=== PATIENT | male | born 1955 | race Caucasian/White ===

== ENCOUNTER 2017-11-20 00:58 | Outpatient (RCR) | payer BC, SELFPAY | END 2017-12-19 | LOC: INF 00:58 | PROVIDERS: PCP Family Medicine; Visit Provider Orthopaedic Surgery | DX: E83.119 Hemochromatosis, unspecified (principal) | CPT/HCPCS: 99195 ==

== ENCOUNTER 2017-11-20 08:10 | Outpatient (CLI) | payer BC, SELFPAY ==
[2017-11-20 08:52] LABS: Ferritin 131 ng/mL (8-388)
== END 2017-11-20 08:11 ==
PROVIDERS: PCP Family Medicine; Visit Provider Family Medicine
DX: E83.119 Hemochromatosis, unspecified (principal)
CPT/HCPCS: 36415; 82728

== ENCOUNTER 2017-12-25 02:32 | Outpatient (RCR) | payer BC, SELFPAY ==
[2017-12-25 10:29] LABS: Ferritin 134 ng/mL (8-388)
== END 2018-01-18 23:59 | disposition home or self-care (01) ==
LOC: INF 02:32
PROVIDERS: PCP Family Medicine; Visit Provider Family Medicine
DX: E83.119 Hemochromatosis, unspecified (principal)
CPT/HCPCS: 36415; 99195; 82728

== ENCOUNTER 2018-01-22 01:37 | Outpatient (RCR) | payer BC, SELFPAY | END 2018-02-18 23:59 | disposition home or self-care (01) | LOC: INF 01:37 | PROVIDERS: PCP Family Medicine; Visit Provider Family Medicine | DX: R69 Illness, unspecified (principal) ==

== ENCOUNTER 2018-01-22 07:52 | Outpatient (CLI) | payer BC, SELFPAY ==
[2018-01-22 09:13] LABS: Ferritin 87 ng/mL (8-388)
== END 2018-01-22 08:12 ==
PROVIDERS: PCP Family Medicine; Visit Provider Family Medicine
DX: E83.119 Hemochromatosis, unspecified (principal)
CPT/HCPCS: 36415; 82728

== ENCOUNTER 2018-02-19 01:25 | Outpatient (RCR) | payer MEDICARE, SELFPAY ==
[2018-02-19] VITALS (15 sets, daily range): BP systolic 65–158; BP diastolic 36–92; PULSE 73–104; RESP 68–84; TEMP 36.6; O2SAT 95–98
[2018-02-19] MEDS: Normal Saline 1,000 ML 999 ML IV (14:12)
== END 2018-03-20 23:59 | disposition home or self-care (01) ==
LOC: INF 01:25
PROVIDERS: PCP Family Medicine; Visit Provider Family Medicine
DX: E83.119 Hemochromatosis, unspecified (principal)
CPT/HCPCS: 99195

== ENCOUNTER 2018-02-19 08:34 | Outpatient (CLI) | payer MEDICARE, SELFPAY ==
[2018-02-19 09:48] LABS: Ferritin 114 ng/mL (8-388)
== END 2018-02-19 08:54 ==
PROVIDERS: PCP Family Medicine; Visit Provider Family Medicine
DX: E83.119 Hemochromatosis, unspecified (principal)
CPT/HCPCS: 36415; 99195; 82728

== ENCOUNTER 2018-03-26 02:21 | Outpatient (RCR) | payer MEDICARE, SELFPAY ==
[2018-03-26 10:48] LABS: Ferritin 54 ng/mL (8-388)
== END 2018-04-20 23:59 | disposition home or self-care (01) ==
LOC: INF 02:21
PROVIDERS: PCP Family Medicine; Visit Provider Family Medicine
DX: E83.119 Hemochromatosis, unspecified (principal)
CPT/HCPCS: 36415; 82728

== ENCOUNTER 2018-04-23 02:23 | Outpatient (RCR) | payer MEDICARE, SELFPAY | END 2018-05-21 23:59 | disposition home or self-care (01) | LOC: INF 02:23 | PROVIDERS: PCP Family Medicine; Visit Provider Family Medicine | DX: E83.119 Hemochromatosis, unspecified (principal) ==

== ENCOUNTER 2018-04-23 08:00 | Outpatient (CLI) | payer MEDICARE, SELFPAY ==
[2018-04-23 08:38] LABS: Ferritin 76 ng/mL (8-388)
== END 2018-04-23 08:20 ==
PROVIDERS: PCP Family Medicine; Visit Provider Family Medicine
DX: E83.119 Hemochromatosis, unspecified (principal)
CPT/HCPCS: 36415; 82728

== ENCOUNTER 2018-05-28 02:16 | Outpatient (CLI) | payer MEDICARE, SELFPAY ==
[2018-05-28 09:08] LABS: Ferritin 97 ng/mL (8-388)
== END 2018-05-28 02:36 ==
PROVIDERS: PCP Family Medicine; Visit Provider Family Medicine
DX: E83.119 Hemochromatosis, unspecified (principal)
CPT/HCPCS: 36415; 82728

== ENCOUNTER 2018-06-25 01:12 | Outpatient (RCR) | payer MEDICARE, SELFPAY | END 2018-07-19 23:59 | disposition home or self-care (01) | LOC: INF 01:12 | PROVIDERS: PCP Family Medicine; Visit Provider Family Medicine | DX: E83.119 Hemochromatosis, unspecified (principal) | CPT/HCPCS: 99195 ==

== ENCOUNTER 2018-06-25 08:09 | Outpatient (CLI) | payer MEDICARE, SELFPAY ==
[2018-06-25 09:04] LABS: Ferritin 206 ng/mL (8-388)
== END 2018-06-25 08:29 ==
PROVIDERS: PCP Family Medicine; Visit Provider Family Medicine
DX: E83.119 Hemochromatosis, unspecified (principal)
CPT/HCPCS: 36415; 99195; 82728

== ENCOUNTER 2018-07-23 01:13 | Outpatient (RCR) | payer MEDICARE, SELFPAY | END 2018-08-18 23:59 | disposition home or self-care (01) | LOC: INF 01:13 | PROVIDERS: PCP Family Medicine; Visit Provider Family Medicine | DX: E83.119 Hemochromatosis, unspecified (principal) | CPT/HCPCS: 99195 ==

== ENCOUNTER 2018-07-23 01:24 | Outpatient (CLI) | payer MEDICARE, SELFPAY ==
[2018-07-23 08:42] LABS: Ferritin 125 ng/mL (8-388)
== END 2018-07-23 01:44 ==
PROVIDERS: PCP Family Medicine; Visit Provider Family Medicine
DX: E83.119 Hemochromatosis, unspecified (principal)
CPT/HCPCS: 36415; 99195; 82728

== ENCOUNTER 2018-08-20 01:26 | Outpatient (CLI) | payer MEDICARE, SELFPAY ==
[2018-08-20 08:39] LABS: Ferritin 117 ng/mL (8-388)
== END 2018-08-20 01:46 ==
PROVIDERS: PCP Family Medicine; Visit Provider Family Medicine
DX: E83.119 Hemochromatosis, unspecified (principal)
CPT/HCPCS: 36415; 99195; 82728

== ENCOUNTER 2018-09-17 01:55 | Outpatient (RCR) | payer MEDICARE, SELFPAY | END 2018-09-18 23:59 | disposition home or self-care (01) | LOC: INF 01:55 | PROVIDERS: PCP Family Medicine; Visit Provider Family Medicine | DX: E83.119 Hemochromatosis, unspecified (principal) | CPT/HCPCS: 99195 ==

== ENCOUNTER 2018-09-24 01:32 | Outpatient (RCR) | payer MEDICARE, SELFPAY | END 2018-10-18 23:59 | disposition home or self-care (01) | LOC: INF 01:32 | PROVIDERS: PCP Family Medicine; Visit Provider Family Medicine | DX: R69 Illness, unspecified (principal) ==

== ENCOUNTER 2018-09-24 08:00 | Outpatient (CLI) | payer MEDICARE, SELFPAY ==
[2018-09-24 08:49] LABS: Ferritin 47 ng/mL (8-388)
== END 2018-09-24 08:20 ==
PROVIDERS: PCP Family Medicine; Visit Provider Family Medicine
DX: E83.119 Hemochromatosis, unspecified (principal)
CPT/HCPCS: 36415; 82728

== ENCOUNTER 2018-10-23 02:15 | Outpatient (RCR) | payer MEDICARE, SELFPAY | END 2018-11-18 23:59 | disposition home or self-care (01) | LOC: INF 02:15 | PROVIDERS: PCP Family Medicine; Visit Provider Family Medicine | DX: R69 Illness, unspecified (principal) ==

== ENCOUNTER 2018-10-23 07:15 | Outpatient (CLI) | payer MEDICARE, SELFPAY ==
[2018-10-23 08:45] LABS: Ferritin 100 ng/mL (8-388)
== END 2018-10-23 07:35 ==
PROVIDERS: PCP Family Medicine; Visit Provider Family Medicine
DX: E83.119 Hemochromatosis, unspecified (principal)
CPT/HCPCS: 36415; 82728

== ENCOUNTER 2018-11-19 07:09 | Outpatient (CLI) | payer MEDICARE, SELFPAY ==
[2018-11-19 09:21] LABS: Ferritin 168 ng/mL (8-388)
== END 2018-11-19 07:29 ==
PROVIDERS: PCP Family Medicine; Visit Provider Family Medicine
DX: E83.119 Hemochromatosis, unspecified (principal)
CPT/HCPCS: 36415; 82728

== ENCOUNTER 2018-11-20 03:34 | Outpatient (RCR) | payer MEDICARE, SELFPAY | END 2018-12-19 23:59 | disposition home or self-care (01) | LOC: INF 03:34 | PROVIDERS: PCP Family Medicine; Visit Provider Family Medicine | DX: E83.119 Hemochromatosis, unspecified (principal) | CPT/HCPCS: 99195 ==

== ENCOUNTER 2018-12-24 04:17 | Outpatient (RCR) | payer MEDICARE, SELFPAY | END 2019-01-18 23:59 | disposition home or self-care (01) | LOC: INF 04:17 | PROVIDERS: PCP Family Medicine; Visit Provider Family Medicine | DX: E83.119 Hemochromatosis, unspecified (principal) | CPT/HCPCS: 99195 ==

== ENCOUNTER 2018-12-24 07:10 | Outpatient (CLI) | payer MEDICARE, SELFPAY ==
[2018-12-24 09:18] LABS: Ferritin 153 ng/mL (8-388)
== END 2018-12-24 07:30 ==
PROVIDERS: PCP Family Medicine; Visit Provider Family Medicine
DX: E83.119 Hemochromatosis, unspecified (principal)
CPT/HCPCS: 36415; 99195; 82728

== ENCOUNTER 2019-01-21 03:51 | Outpatient (RCR) | payer MEDICARE, SELFPAY | END 2019-02-18 23:59 | disposition home or self-care (01) | LOC: INF 03:51 | PROVIDERS: PCP Family Medicine; Visit Provider Family Medicine | DX: E83.119 Hemochromatosis, unspecified (principal) | CPT/HCPCS: 99195 ==

== ENCOUNTER 2019-01-21 07:24 | Outpatient (CLI) | payer MEDICARE, SELFPAY ==
[2019-01-21 09:22] LABS: Ferritin 134 ng/mL (8-388)
== END 2019-01-21 07:44 ==
PROVIDERS: PCP Family Medicine; Visit Provider Family Medicine
DX: E83.119 Hemochromatosis, unspecified (principal)
CPT/HCPCS: 36415; 99195; 82728

== ENCOUNTER 2019-02-25 03:17 | Outpatient (RCR) | payer MEDICARE, SELFPAY | END 2019-03-20 23:59 | disposition home or self-care (01) | LOC: INF 03:17 | PROVIDERS: PCP Family Medicine; Visit Provider Family Medicine | DX: R69 Illness, unspecified (principal) | CPT/HCPCS: 36415; 82728 ==

== ENCOUNTER 2019-02-25 07:16 | Outpatient (CLI) | payer MEDICARE, SELFPAY ==
[2019-02-25 08:46] LABS: Ferritin 56 ng/mL (8-388)
== END 2019-02-25 07:36 ==
PROVIDERS: PCP Family Medicine; Visit Provider Family Medicine
DX: E83.119 Hemochromatosis, unspecified (principal)
CPT/HCPCS: 36415; 82728

== ENCOUNTER 2019-03-25 00:30 | Outpatient (CLI) | payer MEDICARE, SELFPAY ==
[2019-03-25 09:07] LABS: Ferritin 58 ng/mL (26-388)
== END 2019-03-25 00:50 ==
PROVIDERS: PCP Family Medicine; Visit Provider Family Medicine
DX: E83.119 Hemochromatosis, unspecified (principal)
CPT/HCPCS: 36415; 82728

== ENCOUNTER 2019-03-25 02:06 | Outpatient (RCR) | payer MEDICARE, SELFPAY | END 2019-04-20 23:59 | disposition home or self-care (01) | LOC: INF 02:06 | PROVIDERS: PCP Family Medicine; Visit Provider Family Medicine | DX: R69 Illness, unspecified (principal) ==

== ENCOUNTER 2019-04-22 02:29 | Outpatient (RCR) | payer MEDICARE, SELFPAY | END 2019-05-21 23:59 | disposition home or self-care (01) | LOC: INF 02:29 | PROVIDERS: PCP Family Medicine; Visit Provider Family Medicine | DX: E83.119 Hemochromatosis, unspecified (principal) | CPT/HCPCS: 99195 ==

== ENCOUNTER 2019-04-22 06:49 | Outpatient (CLI) | payer MEDICARE, SELFPAY ==
[2019-04-22 09:08] LABS: Ferritin 135 ng/mL (26-388)
== END 2019-04-22 07:09 ==
PROVIDERS: PCP Family Medicine; Visit Provider Family Medicine
DX: E83.119 Hemochromatosis, unspecified (principal)
CPT/HCPCS: 36415; 99195; 82728

== ENCOUNTER 2019-05-27 01:58 | Outpatient (RCR) | payer MEDICARE, SELFPAY | END 2019-06-19 18:03 | disposition home or self-care (01) | LOC: INF 01:58 | PROVIDERS: PCP Family Medicine; Visit Provider Family Medicine | DX: E83.119 Hemochromatosis, unspecified (principal) | CPT/HCPCS: 99195 ==

== ENCOUNTER 2019-05-27 02:36 | Outpatient (CLI) | payer MEDICARE, SELFPAY ==
[2019-05-27 09:23] LABS: Ferritin 114 ng/mL (26-388)
== END 2019-05-27 02:56 ==
PROVIDERS: PCP Family Medicine; Visit Provider Family Medicine
DX: E83.119 Hemochromatosis, unspecified (principal)
CPT/HCPCS: 36415; 99195; 82728

== ENCOUNTER 2019-06-24 02:59 | Outpatient (CLI) | payer MEDICARE, SELFPAY ==
[2019-06-24 09:06] LABS: Ferritin 68 ng/mL (26-388)
== END 2019-06-24 03:19 ==
PROVIDERS: PCP Family Medicine; Visit Provider Family Medicine
DX: E83.119 Hemochromatosis, unspecified (principal)
CPT/HCPCS: 36415; 82728

== ENCOUNTER 2019-08-26 02:34 | Outpatient (RCR) | payer MEDICARE, SELFPAY ==
[2019-08-26 10:50] LABS: Ferritin 63 ng/mL (26-388)
== END 2019-09-19 23:59 | disposition home or self-care (01) ==
LOC: INF 02:34
PROVIDERS: PCP Family Medicine; Visit Provider Family Medicine
DX: E83.119 Hemochromatosis, unspecified (principal)
CPT/HCPCS: 36415; 82728

== ENCOUNTER 2019-09-23 02:58 | Outpatient (RCR) | payer MEDICARE, SELFPAY | END 2019-10-19 23:59 | disposition home or self-care (01) | LOC: INF 02:58 | PROVIDERS: PCP Family Medicine; Visit Provider Family Medicine | DX: E83.118 Other hemochromatosis (principal) | CPT/HCPCS: 99195 ==

== ENCOUNTER 2019-09-23 03:51 | Outpatient (CLI) | payer MEDICARE, SELFPAY ==
[2019-09-23 08:28] LABS: Ferritin 179 ng/mL (26-388)
== END 2019-09-23 04:11 ==
PROVIDERS: PCP Family Medicine; Visit Provider Family Medicine
DX: E83.119 Hemochromatosis, unspecified (principal)
CPT/HCPCS: 36415; 99195; 82728

== ENCOUNTER 2019-10-21 01:36 | Outpatient (RCR) | payer MEDICARE, SELFPAY | END 2019-11-19 23:59 | disposition home or self-care (01) | LOC: INF 01:36 | PROVIDERS: PCP Family Medicine; Visit Provider Family Medicine | DX: E83.119 Hemochromatosis, unspecified (principal) | CPT/HCPCS: 99195 ==

== ENCOUNTER 2019-10-21 02:03 | Outpatient (CLI) | payer MEDICARE, SELFPAY ==
[2019-10-21 08:34] LABS: Ferritin 194 ng/mL (26-388)
== END 2019-10-21 02:23 ==
PROVIDERS: PCP Family Medicine; Visit Provider Family Medicine
DX: E83.119 Hemochromatosis, unspecified (principal)
CPT/HCPCS: 36415; 99195; 82728

== ENCOUNTER 2019-11-25 01:33 | Outpatient (RCR) | payer MEDICARE, SELFPAY | END 2019-12-20 23:59 | disposition home or self-care (01) | LOC: INF 01:33 | PROVIDERS: PCP Family Medicine; Visit Provider Family Medicine | DX: E83.118 Other hemochromatosis (principal) | CPT/HCPCS: 99195 ==

== ENCOUNTER 2019-11-25 01:47 | Outpatient (CLI) | payer MEDICARE, SELFPAY ==
[2019-11-25 09:41] LABS: Ferritin 152 ng/mL (26-388)
== END 2019-11-25 02:07 ==
PROVIDERS: PCP Family Medicine; Visit Provider Family Medicine
DX: E83.119 Hemochromatosis, unspecified (principal)
CPT/HCPCS: 36415; 99195; 82728

== ENCOUNTER 2019-12-23 02:07 | Outpatient (RCR) | payer MEDICARE, SELFPAY | END 2020-01-19 23:59 | disposition home or self-care (01) | LOC: INF 02:07 | PROVIDERS: PCP Family Medicine; Visit Provider Family Medicine | DX: Z53.9 Procedure and treatment not carried out, unspecified reason (principal) ==

== ENCOUNTER 2019-12-23 03:59 | Outpatient (CLI) | payer MEDICARE, SELFPAY ==
[2019-12-23 09:49] LABS: Ferritin 61 ng/mL (26-388)
== END 2019-12-23 04:19 ==
PROVIDERS: PCP Family Medicine; Visit Provider Family Medicine
DX: E83.119 Hemochromatosis, unspecified (principal)
CPT/HCPCS: 36415; 82728

== ENCOUNTER 2020-01-20 02:59 | Outpatient (RCR) | payer MEDICARE, SELFPAY | END 2020-02-19 23:59 | disposition home or self-care (01) | LOC: INF 02:59 | PROVIDERS: PCP Family Medicine; Visit Provider Family Medicine | DX: E83.119 Hemochromatosis, unspecified (principal) ==

== ENCOUNTER 2020-01-20 04:35 | Outpatient (CLI) | payer MEDICARE, SELFPAY ==
[2020-01-20 09:10] LABS: Ferritin 52 ng/mL (26-388)
== END 2020-01-20 04:55 ==
PROVIDERS: PCP Family Medicine; Visit Provider Family Medicine
DX: E83.119 Hemochromatosis, unspecified (principal)
CPT/HCPCS: 36415; 82728

== ENCOUNTER 2020-02-24 00:49 | Outpatient (CLI) | payer MEDICARE, SELFPAY ==
[2020-02-24 09:14] LABS: Ferritin 50 ng/mL (26-388)
== END 2020-02-24 01:09 ==
PROVIDERS: PCP Family Medicine; Visit Provider Family Medicine
DX: E83.119 Hemochromatosis, unspecified (principal)
CPT/HCPCS: 36415; 82728

== ENCOUNTER 2020-02-24 01:46 | Outpatient (RCR) | payer MEDICARE, SELFPAY | END 2020-03-20 23:59 | disposition home or self-care (01) | LOC: INF 01:46 | PROVIDERS: PCP Family Medicine; Visit Provider Family Medicine ==

== ENCOUNTER 2020-03-23 02:02 | Outpatient (RCR) | payer MEDICARE, SELFPAY | END 2020-04-20 23:59 | disposition home or self-care (01) | LOC: INF 02:02 | PROVIDERS: PCP Family Medicine; Visit Provider Family Medicine | DX: Z53.9 Procedure and treatment not carried out, unspecified reason (principal) ==

== ENCOUNTER 2020-03-23 03:25 | Outpatient (CLI) | payer MEDICARE, SELFPAY ==
[2020-03-23 09:11] LABS: Anion Gap 4.3 mmol/L (3-11); BUN 17 mg/dL (7-18); CO2 31.7 mmol/L (21.0-32.0); CREATININE 1.22 mg/dL (0.70-1.30); Calcium 8.9 mg/dL (8.5-10.1); Calculated LDL 89 mg/dL (<100); Chloride 98 mmol/L (98-107); Cholesterol 168 mg/dL (<200); Estimated GFR 59.25 (mL/min/1.73m2); Ferritin 46 ng/mL (26-388); Glucose 103 mg/dL (74-106); HDL Cholesterol 68 mg/dL (40-60); Sodium 134 mmol/L (136-145); Triglyceride 59 mg/dL (<150)
== END 2020-03-23 03:45 ==
PROVIDERS: PCP Family Medicine; Visit Provider Family Medicine
DX: I10 Essential (primary) hypertension (principal); E83.119 Hemochromatosis, unspecified
CPT/HCPCS: 36415; 80048; 80061; 82728

== ENCOUNTER 2020-04-27 01:54 | Outpatient (RCR) | payer MEDICARE, SELFPAY | END 2020-05-21 23:59 | disposition home or self-care (01) | LOC: INF 01:54 | PROVIDERS: PCP Family Medicine; Visit Provider Family Medicine | DX: E83.119 Hemochromatosis, unspecified (principal) | CPT/HCPCS: 99195 ==

== ENCOUNTER 2020-04-27 02:49 | Outpatient (CLI) | payer MEDICARE, SELFPAY ==
[2020-04-27 09:00] LABS: Ferritin 151 ng/mL (26-388)
== END 2020-04-27 03:09 ==
PROVIDERS: PCP Family Medicine; Visit Provider Family Medicine
DX: E83.119 Hemochromatosis, unspecified (principal)
CPT/HCPCS: 36415; 99195; 82728

== ENCOUNTER 2020-05-25 03:52 | Outpatient (CLI) | payer MEDICARE, SELFPAY ==
[2020-05-25 08:52] LABS: Ferritin 79 ng/mL (26-388)
== END 2020-05-25 03:53 | disposition home or self-care (01) ==
LOC: LBO 03:52
PROVIDERS: PCP Family Medicine; Visit Provider Family Medicine
DX: E83.119 Hemochromatosis, unspecified (principal)
CPT/HCPCS: 36415; 82728

== ENCOUNTER 2020-06-09 11:34 | Observation (INO) | payer MEDICARE, SELFPAY ==
[2020-06-09] VITALS (21 sets, daily range): BP systolic 131–177; BP diastolic 82–111; PULSE 85–112; RESP 14–22; TEMP 36.7–37.5; O2SAT 91–98
--- NOTE | 2020-06-09 11:30 | RT.EKG_ITS ---
APPROVED REPORT Exam: Resting ECG Patient Location: E HR:97 bpm ECG Measurements Heart Rate 97 AXIS [place] 169 P 59 QRSd 104 QRS -43 QT 349 T 32 QTc 443 Conclusion Sinus rhythm. Probable left atrial enlargement Incomplete RBBB
--- NOTE | 2020-06-09 12:00 | DI.CT_ITS ---
EXAM: CT ABDOMEN PELVIS W CLINICAL HISTORY: concern for proximal venous clot. TECHNIQUE: Imaging Protocol: Axial computed tomography images with coronal and sagittal reformatted images were created and reviewed CONTRAST MATERIAL: Intravenous: Omnipaque 350 Contrast volume:100 cc Oral: no COMPARISON: No exams were available for comparison FINDINGS: Exam is limited by patient motion articularly of the upper abdomen. There is suboptimal opacificatio n of the venous system particularly distally. There is no gross evidence of thrombus. There is redu ction in the diameter of the right external iliac vein there is no abnormal distension of the IVC, il iac or femoral veins. The arterial system shows moderate calcification. There is no evidence of an aortic aneurysm. There is no evidence of pelvic mass or adenopathy. Is no evidence of soft tissue h ematoma or muscle swelling. There is no evidence of skin thickening or edema. There are mild superf icial venous varicosities bilaterally in the medial subcutaneous fat. The heart size is normal. The coronary artery calcifications are seen. The lung bases show respirat ory motion but are grossly clear. Liver shows fatty infiltration. The gallbladder is not well evalu ated due to motion. The pancreas, adrenals, spleen and kidneys are unremarkable. There is no bowel dilatation or inflammatory change. The appendix appears normal. There is diverticulosis of the desc ending and sigmoid colon but no surrounding inflammation. The bladder and prostate are unremarkable. Degenerative disc changes and facet degenerative changes are seen in the spine. There are degenera tive changes of both hips. Impression: Contrast bolus is suboptimal for evaluation of venous thrombus. No obvious thrombosis or vascular di latation is seen. There is no evidence of pelvic mass or adenopathy. RADIATION DOSE DELIVERED: 1,038.77mGy.cm Total DLP DATA REPOSITORY: All CT scans at this facility are submitted to the National Radiology Data Registry (NRDR) Dose Index Registry (DIR) with the [employer] ([employer]). RADIATION OPTIMIZATION: All CT scans at this facility use at least one of these dose optimization te chniques: automated exposure control; mA and/or kV adjustment per patient size (includes targeted exa ms where dose is matched to clinical indication); or iterative reconstruction.
--- NOTE | 2020-06-09 12:00 | W.ED.GENAD ---
Discharge Plan Disposition Patient Disposition: 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 He reports that he woke with symptoms this morning. Has a history of DVT, right lower extremity proximally 4 years ago. No identified predisposing factors. Patient been on Eliquis since then. He denies any missed doses. He denies chest pain or shortness of breath. Denies any numbness or tingling. Patient states the pain significantly increases with ambulation or dependent position. Patient was evaluated by his primary care was concerned for clot. On exam, patient appears nontoxic. Clinically slightly tachycardic with HR 102 and hypertensive with blood pressure of 152/104. O2 98% RA. Lungs are clear, normal cardiac exam. Patient denies any shortness of breath or difficulty breathing. No pleuritic pain. Abdomen is benign and no pulsatile mass or pain elicited. Patient has good groin pulses. Exam of bilateral lower extremities shows significant dilatation of the vein superficially. No pain with palpation in the posterior aspect of the legs. He has 2+ distal pulses in both feet. The right foot is cool and more purple than left. Patient reports this discoloration is chronic. Left foot is warm and nontender to palpation. He is not endorsing any pain at this time. I am concerned for potential clot, this would likely be proximal in the abdomen based on the sudden onset of bilateral lower extremity symptoms. I do feel that CT venogram is appropriate of the abdomen and bilateral lower extremities. I did discuss imaging modality with the downstream biomanufacturing technician and radiologist. Also obtain labs. Discussed this plan with the patient who is in agreement. Labs reviewed. No leukocytosis. Stable H&H. Coags are normal. CMP significant for elevated AST T and ALT. This is new for the patient. CT reviewed by radiologist: FINDINGS: Exam is limited by patient motion articularly of the upper abdomen. There is suboptimal opacification of the venous system particularly distally. There is no gross evidence of thrombus. There is reduction in the diameter of the right external iliac vein there is no abnormal distension of the IVC, iliac or femoral veins. The arterial system shows moderate calcification. There is no evidence of an aortic aneurysm. There is no evidence of pelvic mass or adenopathy. Is no evidence of soft tissue hematoma or muscle swelling. There is no evidence of skin thickening or edema. There are mild superficial venous varicosities bilaterally in the medial subcutaneous fat. The heart size is normal. The coronary artery calcifications are seen. The lung bases show respiratory motion but are grossly clear. Liver shows fatty infiltration. The gallbladder is not well evaluated due to motion. The pancreas, adrenals, spleen and kidneys are unremarkable. There is no bowel dilatation or inflammatory change. The appendix appears normal. There is diverticulosis of the descending and sigmoid colon but no surrounding inflammation. The bladder and prostate are unremarkable. Degenerative disc changes and facet degenerative changes are seen in the spine. There are degenerative changes of both hips. Impression: Contrast bolus is suboptimal for evaluation of venous thrombus. No obvious thrombosis or vascular dilatation is seen. There is no evidence of pelvic mass or adenopathy. Discussed these concerns with radiologist. She recommended bilateral lower extremity ultrasound. Chemical Laboratory Chief downstream biomanufacturing technician will try to look into the pelvis is much as possible. At the end of my shift, care transitioned to Dr. Cassidy with imaging pending. <Moi Cassidy MD - Last Filed: 06/09/20 17:29> Patient seen, examined [id number], discussed with Ms. Davis. I agree with her assessment and plan and assumed care of the patient at the end of her shift with bilateral lower extremity ultrasound pending. Ultrasound: Extensive right common iliac to mid femoral thrombus R. No IVC thrombus. There is no deep vein thrombus on the left, there is thrombus in the L greater saphenous vein. I have added an anti-factor Xa level. I discussed the case with Dr. Palacios for admission. Lab Data Lab results reviewed: Yes I reviewed the patient's lab results. Labs: Laboratory Results - last 24 hr 06/09/20 06/09/20 06/09/20 11:55 11:55 11:55 WBC 5.16 RBC 4.34 L Hgb 16.3 Hct 46.1 MCV 106.2 H MCH 37.6 H MCHC 35.4 RDW 12.5 Plt Count 193 MPV 9.6 Immature Gran % 0.2 Neutrophils % 64.0 Lymphocytes % 21.5 Monocytes % 11.8 Eosinophils % 1.7 Basophils % 0.8 Nucleated RBC % 0 Absolute Neutrophils 3.30 Absolute Lymphocytes 1.11 L Absolute Monocytes 0.61 Absolute Eosinophils 0.09 Absolute Basophils 0.04 RBC Morphology See below Macrocytosis 2+ PT 10.4 INR 1.0 APTT 25.8 Sodium 140 Potassium 3.5 Chloride 102 Carbon Dioxide 27.9 Anion Gap 10.1 BUN 11 Creatinine 0.9 Estimated GFR/1.73 m2 >= 60.00 Glucose 107 H Calcium 9.2 Magnesium 1.8 Total Bilirubin 0.9 AST 84 H ALT 65 H Alkaline Phosphatase 115 Troponin I < 0.05 Total Protein 8.2 Albumin 3.7 HPI <BRIDGETT Villatoro - Last Filed: 06/10/20 10:53> General Mode of arrival: ambulatory. Date/Time Provider Initiated Documentation: 06/09/20 12:00. Limitations to Documentation: no limitations. Information obtained by: patient, RN/MD (spoke with patient's PCP prior to arrival), RN notes reviewed and old records reviewed. History of Present Illness 65 year old M presents to the emergency department with the chief complaint of BLE vascular distention, LLE pain, described as mild (reports pain subsided when at rest), Quality is described as aching, and is localized to the left and lower extremity. Patient reports no radiation. Patient started experiencing this hour(s) (woke withsymptoms this morning) and it has been constant. Immobilization improves symptom(s), Movement worsens symptoms . Patient notes no other symptoms.; denies chest pain, diaphoresis, fever/chills and shortness of breath. Patient did receive the following treatments prior to arrival, none Related Data Home Medications Medication Instructions Recorded Confirmed triamcinolone acetonide 0.1 % 1 applic TP BID PRN #30 gm 01/18/19 06/09/20 topical cream hydrochlorothiazide 25 mg tablet 25 mg PO DAILY #90 tab 04/17/20 06/09/20 enoxaparin 80 mg SUBCUT Q12H #60 syrg 06/10/20 Previous Rx's Medication Instructions Recorded triamcinolone acetonide 0.1 % 1 applic TP BID PRN #30 gm 01/18/19 topical cream hydrochlorothiazide 25 mg tablet 25 mg PO DAILY #90 tab 04/17/20 enoxaparin 80 mg SUBCUT Q12H #60 syrg 06/10/20 Allergies Allergy/AdvReac Type Severity Reaction Status Date / Time lisinopril AdvReac Intermediate COUGH Verified 06/09/20 10:58 General Stated Complaint: Vascular MARIA EUGENIA: 3 Review of Systems <BRIDGETT Villatoro - Last Filed: 06/10/20 10:53> Constitutional Constitutional: Reports as per HPI, Denies chills, Denies fever(s), Denies headache(s), Denies lethargy and Denies poor appetite Eyes Eyes: Denies change in vision ENT Ears, Nose, Mouth, and Throat: Denies dizziness and Denies headache(s) Cardiovascular Cardiovascular: Reports as per HPI, Denies chest pain, Denies chest pain at rest, Denies chest pain with activity, Denies dyspnea and Denies dyspnea on exertion Respiratory Respiratory: Reports as per HPI, Denies chest congestion, Denies cough, Denies pain on inspiration, Denies pain with cough, Denies dyspnea, Denies dyspnea on exertion and Denies wheezing Gastrointestinal Gastrointestinal: Reports as per HPI, Denies abdominal pain, Denies diarrhea, Denies nausea and Denies vomiting Genitourinary Genitourinary: Denies system reviewed and no additional complaints, except as documented (denies change in urinary habits) Musculoskeletal Musculoskeletal: Reports as per HPI and Denies back pain Integumentary/Breasts Skin/Breast: Reports as per HPI (reports BLE purpleish at baseline) Neurologic Neurologic: Reports as per HPI, Denies dizziness and Denies headache(s) Allergic/Immunologic Allergic/Immunologic: Denies wheezing PFSH <BRIDGETT Villatoro - Last Filed: 06/10/20 10:53> Medical History Hemochromatosis Hypertension Surgical History Arthroplasty of knee (10/19/08) [facility] [place] Family History Mother , Stroke at age 75. Stroke Father , Liver Disease at age 68. No problems noted. Sister No problems noted. Sister No problems noted. Brother , motor cycle accident at age 20. No problems noted. Brother No problems noted. Brother No problems noted. Brother No problems noted. Social History Smoking/Tobacco Use Status: Current every day Tobacco Type: cigarettes Smoking packs per day: 1 Smoking cigarettes per day: 20.0 Smoking risk assessment performed?: Yes Alcohol Intake: current Alcohol Intake frequency: 0-2 drinks per day Alcohol type: wine Drug use: Never Substance use type: does not use Household members: significant other and children Housing: house Number of Children: 1 number of grandchildren: 10 Communication Needs: None current occupation: retired from [employer] work What is your relationship status?: living with partner Panel score (0-1 are the most socially isolated patients): 1 What type of physical activity do you participate in: other Details: very active at home w/animals Seatbelt use: always Drive 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 Working smoke detector in home: Yes Carbon monox detector in home: Yes Do you feel safe at home: Yes Do you feel safe in your relationship?: Yes Exam <BRIDGETT Villatoro - Last Filed: 06/10/20 10:53> Const General: cooperative, healthy appearing, comfortable, no acute distress and well developed Nutritional Appearance: average body habitus and well nourished Orientation: alert, awake and oriented x3 HENMT Head: normal to inspection Ears: hearing grossly normal bilaterally Mouth: moist mucous membranes Chest Chest: normal inspection of the chest, normal palpation of entire chest wall and no crepitus Resp Effort & Inspection: normal respiratory effort, able to speak in complete sentences and no respiratory distress Auscultation: clear to auscultation bilaterally, no rales, no rhonchi and no wheezes Cardio Rate: regular rate Rhythm: regular rhythm Heart Sounds: S1 normal and S2 normal GI Inspection: normal to inspection, no edema and non-distended Palpation: soft, no hepatosplenomegaly, not firm, no guarding, no pulsatile masses, not rigid and nontender Auscultation: normal bowel sounds Skin General skin exam: other (as described below) Neuro General: patient alert, patient awake and patient oriented x3 Cognition: normal cognition Speech: speech normal Gait: normal gait Extrem General: capillary refill normal (cap refill intact, RLE purple discoloration ), no pedal edema, no calf tenderness, normal gait and other (BLE with prominent superficial veins up to groin) Psych Appearance: grossly normal and well kempt Mental Status: mental status grossly normal Speech and Movement: speech and movement normal Course <BRIDGETT Villatoro - Last Filed: 06/10/20 10:53> Vital Signs Vital signs: Vital Signs Temperature 36.7 C 06/09/20 11:43 Pulse 102 H 06/09/20 11:43 Respiratory Rate 20 06/09/20 11:43 Blood Pressure 152/104 H 06/09/20 11:43 Pulse Oximetry 98 06/09/20 11:43 Temperature 36.7 C 06/09/20 11:43 Temperature Source Skin 06/09/20 11:43 Pulse 102 H 06/09/20 11:43 Respiratory Rate 20 06/09/20 11:43 Respiratory Effort Non-Labored 06/09/20 11:47 Blood Pressure 152/104 H 06/09/20 11:43 Blood Pressure Position Sitting 06/09/20 11:43 Pulse Oximetry 98 06/09/20 11:43 Oxygen Delivery Method Room Air 06/09/20 11:43 Oxygen Flow Rate 0 06/09/20 11:43 Pain Level 0 06/09/20 11:43 Sign Out <BRIDGETT Villatoro - Last Filed: 06/10/20 10:53> Sign Out Data: Sign Out Comment: Care transition to Dr. Cassidy with imaging pending. Patient had a rather nondiagnostic CT scan although no significant acute findings were noted. Concern for possible proximal clot. Patient is anticoagulant Eliquis, has not missed any doses. Patient is currently undergoing a ultrasound of bilateral lower extremities and pelvis. Last updated by Zahira Garrido PA at 06/09/20 16:02
[2020-06-09 12:55] LABS: ALT 65 U/L (16-63); AST 84 U/L (15-37); Albumin 3.7 g/dL (3.4-5.0); Alkaline Phosphatase 115 U/L (46-116); Anion Gap 10.1 mmol/L (3-11); BUN 11 mg/dL (7-18); Bilirubin, Total 0.9 mg/dL (0.2-1.0); CO2 27.9 mmol/L (21.0-32.0); CREATININE 0.9 mg/dL (0.70-1.30); Calcium 9.2 mg/dL (8.5-10.1); Chloride 102 mmol/L (98-107); Glucose 107 mg/dL (74-106); Magnesium 1.8 mg/dL (1.8-2.4); Potassium 3.5 mmol/L (3.5-5.1); Sodium 140 mmol/L (136-145); Total Protein 8.2 g/dL (6.4-8.2); Troponin I < 0.05 ng/mL (<0.06)
[2020-06-09 12:58] LABS: Abs Immature Grans 0.01 10^3/uL (0.0-0.06); Absolute Basophil Count 0.04 10^3/uL (0.0-0.2); Absolute Eosinophil Count 0.09 10^3/uL (0.0-0.7); Absolute Lymphocyte Count 1.11 10^3/uL (1.2-3.4); Absolute Monocyte Count 0.61 10^3/uL (0.1-0.8); Basophils % 0.8; Eosinophils % 1.7; HCT 46.1 % (40.0-50.0); HGB 16.3 g/dL (13.5-17.5); Immature Grans % 0.2; Lymphocytes % 21.5; MCH 37.6 pg (27.0-33.0); MCHC 35.4 % (32.0-36.0); MCV 106.2 fL (80-95); MPV 9.6 fL (8.0-11.0); Monocytes % 11.8; Nucleated RBC 0 %; Platelet Count 193 10^3/uL (130-400); RBC 4.34 10^6/uL (4.36-5.78); RDW 12.5 % (11.8-14.1); RDW-SD 49.2 fL; WBC 5.16 10^3/uL (4.4-10.8)
[2020-06-09 13:02] LABS: PTT Activated 25.8 sec (21.0-27.5); Prothrombin Time 10.4 sec (9.3-11.0)
[2020-06-09 13:11] LABS: Diff Comment RBC Morph Reviewed
[2020-06-09 13:12] LABS: Macrocytosis 2+
[2020-06-09] MEDS: Omnipaque 350 MG/ML 100 ML BTL IV (14:44)
[2020-06-09] MEDS: Normal Saline - Diluent 50 ML VIAL IV (14:46)
--- NOTE | 2020-06-09 14:49 | DI.US_ITS ---
EXAM: US EXTREMITY VENOUS BI CLINICAL HISTORY: distended veins, leg pain. TECHNIQUE: Bilateral lower extremity venous ultrasound performed using grayscale, color-flow, and sp ectral Doppler analysis. COMPARISON: US RIGHT EXTREMITY ULTRASOUND from 09/22/2016 FINDINGS: Right lower extremity: Thrombus is seen from the right common iliac vein extending through the mid fe moral vein. The distal femoral vein through calf veins appear free of thrombus. The greater sapheno us vein and performed a femoral vein also free of thrombus. The clot measures approximately 48 centi meters in length. Left lower extremity: There is thrombus visible in the greater saphenous vein measuring approximately 10 cm in length. The thrombus extends 2 centimeters from the saphenofemoral junction. The deep yvonne ous system appears free of thrombus. No thrombus is visible in the inferior vena cava. IMPRESSION: Right: Extensive deep venous thrombosis from the common iliac vein through the mid femoral vein. Left: Superficial thrombosis in the greater saphenous vein. Negative for DVT Findings were discussed with Dr. Cassidy of the emergency department. DATA REPOSITORY:
--- NOTE | 2020-06-09 17:49 | W.PM.HP.N ---
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 This represents clear treatment failure. However the normal INR raises question of compliance or possible drug error of some sort. In any case will start on Lovenox until matter can be sorted out. Would advise consult with hematology after discharge. In meantime will add testing for hypercoaguable state, though meds on board may interfere. Will also add direct assay for Eliquis. History of Present Illness History of Present Illness Chief Complaint: leg swelling Narrative: 65 male with h/o hemochromatosis, and DVT 2016, has been on anticoagulation since. 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 (when asked specifically whether this is clotting he does not know). At any rate he comes in today with one dy of swelling in the venous pattern of both LEs as well as variable pain. In ER findings of note for extensive STP left saphenous to within 2 cm of common femoral and DVT right iliac to mid-femoral. He states he has been taking his Eliquis faithfully although it is noted that INR is 1.0. No CP, no SOB. Review of Systems All systems reviewed & are unremarkable except as noted in HPI and below PFSH Medical History Hemochromatosis Hypertension Surgical History Arthroplasty of knee (10/19/08) [place], [place] Family History Mother , Stroke at age 75. Stroke Father , Liver Disease at age 68. No problems noted. Sister No problems noted. Sister No problems noted. Brother , motor cycle accident at age 20. No problems noted. Brother No problems noted. Brother No problems noted. Brother No problems noted. 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 What is your relationship status?: living with partner Panel score (0-1 are the most socially isolated patients): 1 What type of physical activity do you participate in: other Details: very active at home w/animals Seatbelt use: always Drive intox or ride w/intox 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 Working smoke detector in home: Yes Carbon monox detector in home: Yes Do you feel safe at home: Yes Do you feel safe in your relationship?: Yes Meds Home Medications and Allergies Home Medications Medication Instructions Recorded Confirmed Type triamcinolone acetonide 0.1 % 1 applic TP BID PRN #30 gm 01/18/19 06/09/20 Rx topical cream apixaban 5 mg tablet 5 mg PO BID #180 tab 01/24/20 06/09/20 Rx hydrochlorothiazide 25 mg tablet 25 mg PO DAILY #90 tab 04/17/20 06/09/20 Rx Allergies Allergy/AdvReac Type Severity Reaction Status Date / Time lisinopril AdvReac Intermediate COUGH Verified 06/09/20 10:58 Exam Narrative Exam Narrative: 165/108 (last recorded, during visit 160/85), 98, 36.7, 21, 95% RA. HEENT atraumatic; neck supple, lungs clear; heart RRR w/o MRG, no RV heave; abdomen soft and NT; extremities extensive cord and skip erythema along course left gr. saphenous and distal supwerficial venous congestion; on RLE no cord; trace pedal edema bilateral; neuro Ox3, moves all 4s Results Labs Result diagrams: 06/09/20 11:55 06/09/20 11:55 Labs: Laboratory Results - last 24 hr 06/09/20 06/09/20 06/09/20 11:55 11:55 11:55 WBC 5.16 RBC 4.34 L Hgb 16.3 Hct 46.1 MCV 106.2 H MCH 37.6 H MCHC 35.4 RDW 12.5 Plt Count 193 MPV 9.6 Immature Gran % 0.2 Neutrophils % 64.0 Lymphocytes % 21.5 Monocytes % 11.8 Eosinophils % 1.7 Basophils % 0.8 Nucleated RBC % 0 Absolute Neutrophils 3.30 Absolute Lymphocytes 1.11 L Absolute Monocytes 0.61 Absolute Eosinophils 0.09 Absolute Basophils 0.04 RBC Morphology See below Macrocytosis 2+ PT 10.4 INR 1.0 APTT 25.8 Sodium 140 Potassium 3.5 Chloride 102 Carbon Dioxide 27.9 Anion Gap 10.1 BUN 11 Creatinine 0.9 Estimated GFR/1.73 m2 >= 60.00 Glucose 107 H Calcium 9.2 Magnesium 1.8 Total Bilirubin 0.9 AST 84 H ALT 65 H Alkaline Phosphatase 115 Troponin I < 0.05 Total Protein 8.2 Albumin 3.7 Last Vital Signs Temp 36.7 C 06/09/20 11:43 Pulse 98 H 06/09/20 17:16 Resp 21 06/09/20 17:16 BP 165/108 H 06/09/20 17:16 Pulse Ox 95 06/09/20 17:16 COVID-19 Screening Have you, or household traveled for leisure in last 14 days?: No Had IN PERSON contact w/suspected or confirmed C-19 person: No
[2020-06-09 18:31] LABS: Source Nasopharynx
[2020-06-09 19:10] LABS: COVID-19 PCR Negative (Negative); Influenza A PCR Negative (Negative); Influenza B PCR Negative (Negative); RSV PCR Negative (Negative)
[2020-06-09] MEDS: Enoxaparin 80 MG/0.8 ML SYR SC (19:25)
[2020-06-10] MEDS: Enoxaparin 80 MG/0.8 ML SYR SC (05:54)
[2020-06-10 06:09] VITALS: BP 164/94; PULSE 96; RESP 18; TEMP 37.3; O2SAT 95
[2020-06-10 07:34] VITALS: BP 147/88; PULSE 96; RESP 18; TEMP 37.4; O2SAT 95
[2020-06-10] MEDS: Normal Saline Flush 10 ML SYR IVP (09:10)
[2020-06-10] MEDS: hydroCHLOROthiazide 25 MG TAB PO (09:10)
[2020-06-10] MEDS: Acetaminophen 325 MG TAB 650 MG PO (09:21)
--- NOTE | 2020-06-10 11:11 | W.PM.DS.N ---
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 He endorses compliance with DOAC but there is question of this,Protein antigen test and Antithrombin III activ sent out, he is on enoxaparin 80kg subcu BID. 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 He denies CP, SOB above case discussed with Dr. Ferreira. Discharge Plan Disposition Patient Disposition: HOME Condition: Improving Discharge Details Reason For Visit: DVT Admit Date/Time: 06/09/20 19:38 Admit Provider: Kel Palacios Attending Provider: Kel Palacios Primary Care Provider: Frank [facility] Hospital Course: 65 male with h/o hemochromatosis, and DVT 2016, has been on anticoagulation since. He does not know why he has been on senior care anticoagulation but does relate a strong family history of unspecified problem with the legs in numerous family members. (when asked specifically whether this is clotting he does not know). He came in last night with one day of swelling in the venous pattern of both LEs as well as variable pain. In ER findings of note for extensive STP left saphenous to within 2 cm of common femoral and DVT right iliac to mid-femoral. He was asked to be admitted to m/s for further management. He states he faithfully takes his DOAC BID, protein C and S antigens sent, antithrombin 3 activ levels sent and he will need follow up with hematology as an outpatient. Will refer to [facility]. He denies CP, SOB, N/V/D. He states he and his are comfortable giving injections, pharmacy will not have any ready until Friday will give him some until then. Home Meds and New Rx's Prescriptions: New enoxaparin 80 mg/0.8 mL Syringe 80 mg subcut Q12H Qty: 60 RF: 0 Continued triamcinolone acetonide 0.1 % cream 1 applic TP BID PRN (Reason: itching) Qty: 30 RF: 2 hydrochlorothiazide 25 mg tablet 25 mg PO DAILY Qty: 90 RF: 3 Discontinued Eliquis 5 mg tablet 5 mg PO BID Qty: 180 RF: 3 Discharge Instructions Instructions: Deep Vein Thrombosis (DC) Additional Instructions: Follow up with PCP in 1 week Follow up with Hematology, referral to [facility] Take lovenox twice a day rotate the hip each time. Activity:: Activity as Tolerated Equipment/Supplies:: No Equipment Needed Diet:: As Tolerated Discharge Orders Discharge Orders: Discharge Order (Routine); Ordered 06/10/20 Ordered By: Sydney Narayan DS: Summary Time Spent with Patient providing and/or coordinating discharge services: Greater than 30 minutes (approx 35 mins spent discharging patient) Status at Discharge Functional status at discharge: independent ambulation Overall status at discharge: patient is back to baseline Mental Status: mental status grossly normal Speech and Movement: speech and movement normal Mood: congruent mood Affect: normal affect Exam Narrative Exam Narrative: . HEENT atraumatic; neck supple, lungs clear; heart RRR w/o MRG, no RV heave; abdomen soft and NT; extremities extensive cord and skip erythema along course left gr. saphenous and distal supwerficial venous congestion; on RLE no cord; trace pedal edema bilateral; neuro Ox3, moves all 4s Psych Mental Status: mental status grossly normal Speech and Movement: speech and movement normal Mood: congruent mood Affect: normal affect DS: Data Vitals/I&O Vitals and I&O: Vital Signs Temperature 37.4 C 06/10/20 07:34 Temperature Source Temporal Artery Scan 06/10/20 07:34 Pulse 96 H 06/10/20 07:34 Pulse 95 H 06/09/20 17:16 Respiratory Rate 18 06/10/20 07:34 Respiratory Effort 06/09/20 20:17 Respiratory Depth Normal 06/09/20 20:17 Respiratory Pattern Normal 06/09/20 20:17 Blood Pressure 147/88 H 06/10/20 07:34 Blood Pressure Mean 121 06/09/20 17:16 Blood Pressure Position Sitting 06/09/20 11:43 Pulse Oximetry 95 06/10/20 07:34 Oxygen Delivery Method Room Air 06/10/20 07:34 Oxygen Flow Rate 0 06/10/20 07:34 Pain Level 2 06/10/20 09:21 Intake & Output 06/09/20 06/09/20 06/10/20 11:59 23:59 11:59 Intake Total 10 10 130 / 130 Output Total 800 / 800 100 / 100 Balance 10 / -790 -800 / -790 30 / 30 Weight 81.647 kg 80.4 kg Intake: IV 10 10 / 10 Oral 120 / 120 Output: Urine 800 / 800 100 / 100 Other: Urine Color Light Pamela Straw Urine Appearance Clear Cloudy Urine Odor Strong Voiding Methods Urinal Urinal Data Completed and Pending Completed studies during hospitalization [Text1]: FINDINGS: Right lower extremity: Thrombus is seen from the right common iliac vein extending through the mid femoral vein. The distal femoral vein through calf veins appear free of thrombus. The greater saphenous vein and performed a femoral vein also free of thrombus. The clot measures approximately 48 centimeters in length. Left lower extremity: There is thrombus visible in the greater saphenous vein measuring approximately 10 cm in length. The thrombus extends 2 centimeters from the saphenofemoral junction. The deep venous system appears free of thrombus. No thrombus is visible in the inferior vena cava. IMPRESSION: Right: Extensive deep venous thrombosis from the common iliac vein through the mid femoral vein. Left: Superficial thrombosis in the greater saphenous vein. Negative for DVT Findings were discussed with Dr. Cassidy of the emergency department. FINDINGS: Exam is limited by patient motion articularly of the upper abdomen. There is suboptimal opacification of the venous system particularly distally. There is no gross evidence of thrombus. There is reduction in the diameter of the right external iliac vein there is no abnormal distension of the IVC, iliac or femoral veins. The arterial system shows moderate calcification. There is no evidence of an aortic aneurysm. There is no evidence of pelvic mass or adenopathy. Is no evidence of soft tissue hematoma or muscle swelling. There is no evidence of skin thickening or edema. There are mild superficial venous varicosities bilaterally in the medial subcutaneous fat. The heart size is normal. The coronary artery calcifications are seen. The lung bases show respiratory motion but are grossly clear. Liver shows fatty infiltration. The gallbladder is not well evaluated due to motion. The pancreas, adrenals, spleen and kidneys are unremarkable. There is no bowel dilatation or inflammatory change. The appendix appears normal. There is diverticulosis of the descending and sigmoid colon but no surrounding inflammation. The bladder and prostate are unremarkable. Degenerative disc changes and facet degenerative changes are seen in the spine. There are degenerative changes of both hips. Impression: Contrast bolus is suboptimal for evaluation of venous thrombus. No obvious thrombosis or vascular dilatation is seen. There is no evidence of pelvic mass or adenopathy. Labs on day of discharge: Labs from last 24 hours 06/09/20 06/09/20 06/09/20 20:12 18:17 18:17 WBC RBC Hgb Hct MCV MCH MCHC RDW Plt Count MPV Immature Gran % Neutrophils % Lymphocytes % Monocytes % Eosinophils % Basophils % Nucleated RBC % Absolute Neutrophils Absolute Lymphocytes Absolute Monocytes Absolute Eosinophils Absolute Basophils RBC Morphology Macrocytosis PT INR APTT Protein C Antigen Free Protein S Antigen Antithrombin III Activ Pending Heparin Anti-Xa Level Sodium Potassium Chloride Carbon Dioxide Anion Gap BUN Creatinine Estimated GFR/1.73 m2 Glucose Calcium Magnesium Total Bilirubin AST ALT Alkaline Phosphatase Troponin I Total Protein Albumin COVID-19 Source Nasopharynx SARS-CoV-2 (PCR) Negative Influenza Type A (PCR) Negative Influenza Type B (PCR) Negative RSV (PCR) Negative Miscellaneous Test Pending 06/09/20 06/09/20 06/09/20 18:17 16:38 11:55 WBC RBC Hgb Hct MCV MCH MCHC RDW Plt Count MPV Immature Gran % Neutrophils % Lymphocytes % Monocytes % Eosinophils % Basophils % Nucleated RBC % Absolute Neutrophils Absolute Lymphocytes Absolute Monocytes Absolute Eosinophils Absolute Basophils RBC Morphology Macrocytosis PT 10.4 INR 1.0 APTT 25.8 Protein C Antigen Pending Free Protein S Antigen Pending Antithrombin III Activ Heparin Anti-Xa Level Pending Sodium Potassium Chloride Carbon Dioxide Anion Gap BUN Creatinine Estimated GFR/1.73 m2 Glucose Calcium Magnesium Total Bilirubin AST ALT Alkaline Phosphatase Troponin I Total Protein Albumin COVID-19 Source SARS-CoV-2 (PCR) Influenza Type A (PCR) Influenza Type B (PCR) RSV (PCR) Miscellaneous Test 06/09/20 06/09/20 11:55 11:55 WBC 5.16 RBC 4.34 L Hgb 16.3 Hct 46.1 MCV 106.2 H MCH 37.6 H MCHC 35.4 RDW 12.5 Plt Count 193 MPV 9.6 Immature Gran % 0.2 Neutrophils % 64.0 Lymphocytes % 21.5 Monocytes % 11.8 Eosinophils % 1.7 Basophils % 0.8 Nucleated RBC % 0 Absolute Neutrophils 3.30 Absolute Lymphocytes 1.11 L Absolute Monocytes 0.61 Absolute Eosinophils 0.09 Absolute Basophils 0.04 RBC Morphology See below Macrocytosis 2+ PT INR APTT Protein C Antigen Free Protein S Antigen Antithrombin III Activ Heparin Anti-Xa Level Sodium 140 Potassium 3.5 Chloride 102 Carbon Dioxide 27.9 Anion Gap 10.1 BUN 11 Creatinine 0.9 Estimated GFR/1.73 m2 >= 60.00 Glucose 107 H Calcium 9.2 Magnesium 1.8 Total Bilirubin 0.9 AST 84 H ALT 65 H Alkaline Phosphatase 115 Troponin I < 0.05 Total Protein 8.2 Albumin 3.7 COVID-19 Source SARS-CoV-2 (PCR) Influenza Type A (PCR) Influenza Type B (PCR) RSV (PCR) Miscellaneous Test [facility] Medical History Hemochromatosis Hypertension Surgical History Arthroplasty of knee (10/19/08) [place], [place] Family History Mother , Stroke at age 75. Stroke Father , Liver Disease at age 68. No problems noted. Sister No problems noted. Sister No problems noted. Brother , motor cycle accident at age 20. No problems noted. Brother No problems noted. Brother No problems noted. Brother No problems noted. Social History Smoking/Tobacco Use Status: Current every day Tobacco Type: cigarettes Smoking packs per day: 1 Smoking cigarettes per day: 20.0 Smoking risk assessment performed?: Yes Alcohol Intake: current Alcohol Intake frequency: 0-2 drinks per day Alcohol type: wine Drug use: Never Substance use type: does not use Household members: significant other and children Housing: house Number of Children: 1 number of grandchildren: 10 Communication Needs: None current occupation: retired from [employer] work What is your relationship status?: living with partner Panel score (0-1 are the most socially isolated patients): 1 What type of physical activity do you participate in: other Details: very active at home w/animals Seatbelt use: always Drive intox or ride w/intox 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
--- NOTE | 2020-06-10 19:31 | CMDISCH_ITS ---
- If Service Date Differs Date of service: 06/10/20 Time of Service: 19:31 LACE Index Scoring Tool - Questions: Length of Stay (in days): 1 Acuity (Admit via E.D.?): Yes E.D. Visits: 1 - Answers: Total Score: 5 Risk of Readmission: Low Risk Care Management Discharge Reason for Hospitalization: DVT Discharge Plan: Geraldine will be discharged home with no new services. He was given a prescription for Lovenox which will be filled at [facility]. CM contacted pharmacy regarding copay. His initial cost will be over $370 but future costs will be considerably less since geraldine will have met his deductible. CM shared this information with Geraldine and he was in agreement with filling the prescription at that cost. geraldine will follow up with his PCP and plan of care and transport with family. Patient/Family Education Needs: Discharge plan, limitations, follow up plan, Ask Me Three
[2020-06-13 11:27] LABS: Protein S Ag, Free 148 % (65 - 160)
[2020-06-13 11:44] LABS: Antithrombin Activity, Plasma 71 % (80 - 130)
[2020-06-13 11:46] LABS: Heparin Anti-Xa, P 0.87 IU/mL
[2020-06-14 13:41] LABS: Protein C Ag, P 52 % (70-150)
[2020-06-23 16:19] LABS: Misc Referral (MAYO) See Comments
== END 2020-06-10 13:35 | disposition home or self-care (01) ==
LOC: ER 17:09 → MS 06-10 11:20
PROVIDERS: Physician Assistant; Admitting Provider General Practice; Emergency Provider Emergency Medicine; PCP Family Medicine; Visit Provider General Practice
DX: I82.401 Acute embolism and thrombosis of unspecified deep veins of right lower extremity (principal); I82.421 Acute embolism and thrombosis of right iliac vein; I82.411 Acute embolism and thrombosis of right femoral vein; I82.492 Acute embolism and thrombosis of other specified deep vein of left lower extremity; E83.119 Hemochromatosis, unspecified; Z79.01 Long term (current) use of anticoagulants; I10 Essential (primary) hypertension; Z86.718 Personal history of other venous thrombosis and embolism
CPT/HCPCS: 36415; 80053; 80375; 85300; 85305; 93005; 96372; 99217; 99222; 99285; 74177; 83735; 84484; 85025; 85520; 85610; 85730; 93010; 93970; 99219; G0378; J1650; J3490

== ENCOUNTER 2020-07-20 03:23 | Outpatient (CLI) | payer MEDICARE, SELFPAY ==
[2020-07-20 09:01] LABS: Ferritin 54 ng/mL (26-388)
== END 2020-07-20 03:24 | disposition home or self-care (01) ==
LOC: LBO 03:23
PROVIDERS: PCP Family Medicine; Visit Provider Family Medicine
DX: E83.119 Hemochromatosis, unspecified (principal)
CPT/HCPCS: 36415; 82728

== ENCOUNTER 2020-08-24 03:27 | Outpatient (CLI) | payer MEDICARE, SELFPAY ==
[2020-08-24 09:10] LABS: Ferritin 42 ng/mL (26-388)
== END 2020-08-24 03:28 | disposition home or self-care (01) ==
LOC: LBO 03:27
PROVIDERS: PCP Family Medicine; Visit Provider Family Medicine
DX: E83.119 Hemochromatosis, unspecified (principal)
CPT/HCPCS: 36415; 82728

== ENCOUNTER 2020-09-21 03:26 | Outpatient (CLI) | payer MEDICARE, SELFPAY ==
[2020-09-21 09:00] LABS: Ferritin 66 ng/mL (26-388)
== END 2020-09-21 03:27 | disposition home or self-care (01) ==
LOC: LBO 03:26
PROVIDERS: PCP Family Medicine; Visit Provider Family Medicine
DX: E83.119 Hemochromatosis, unspecified (principal)
CPT/HCPCS: 36415; 82728

== ENCOUNTER 2020-10-19 03:33 | Outpatient (RCR) | payer MEDICARE, SELFPAY | END 2020-11-18 23:59 | disposition home or self-care (01) | LOC: INF 03:33 | PROVIDERS: PCP Family Medicine; Visit Provider Family Medicine | DX: E83.110 Hereditary hemochromatosis (principal) | CPT/HCPCS: 99195 ==

== ENCOUNTER 2020-10-19 04:22 | Outpatient (CLI) | payer MEDICARE, SELFPAY ==
[2020-10-19 09:19] LABS: Ferritin 121 ng/mL (26-388)
== END 2020-10-19 04:23 | disposition home or self-care (01) ==
LOC: LBO 04:22
PROVIDERS: PCP Family Medicine; Visit Provider Family Medicine
DX: E83.119 Hemochromatosis, unspecified (principal)
CPT/HCPCS: 36415; 99195; 82728

== ENCOUNTER 2020-11-23 03:05 | Outpatient (RCR) | payer MEDICARE, SELFPAY | END 2020-12-19 23:59 | disposition home or self-care (01) | LOC: INF 03:05 | PROVIDERS: PCP Family Medicine; Visit Provider Family Medicine | DX: E83.110 Hereditary hemochromatosis (principal) | CPT/HCPCS: 99195 ==

== ENCOUNTER 2020-11-23 03:49 | Outpatient (CLI) | payer MEDICARE, SELFPAY ==
[2020-11-23 09:02] LABS: Ferritin 183 ng/mL (26-388)
== END 2020-11-23 03:50 | disposition home or self-care (01) ==
LOC: LBO 03:49
PROVIDERS: PCP Family Medicine; Visit Provider Family Medicine
DX: E83.119 Hemochromatosis, unspecified (principal)
CPT/HCPCS: 36415; 99195; 82728

== ENCOUNTER 2020-12-21 02:52 | Outpatient (RCR) | payer MEDICARE, SELFPAY | END 2021-01-18 23:59 | disposition home or self-care (01) | LOC: INF 02:52 | PROVIDERS: PCP Family Medicine; Visit Provider Family Medicine | DX: E83.119 Hemochromatosis, unspecified (principal) | CPT/HCPCS: 99195 ==

== ENCOUNTER 2020-12-21 03:32 | Outpatient (CLI) | payer MEDICARE, SELFPAY ==
[2020-12-21 09:09] LABS: Ferritin 125 ng/mL (26-388)
== END 2020-12-21 03:33 | disposition home or self-care (01) ==
LOC: LBO 03:33
PROVIDERS: PCP Family Medicine; Visit Provider Family Medicine
DX: E83.118 Other hemochromatosis (principal)
CPT/HCPCS: 36415; 99195; 82728

== ENCOUNTER 2021-01-25 03:12 | Outpatient (CLI) | payer MEDICARE, SELFPAY ==
[2021-01-25 09:11] LABS: Ferritin 48 ng/mL (26-388)
[2021-01-27 11:07] LABS: Myoglobin, U 19 mcg/L (<=65)
== END 2021-01-25 03:13 | disposition home or self-care (01) ==
LOC: LBO 03:12
PROVIDERS: PCP Family Medicine; Visit Provider Family Medicine
DX: E83.119 Hemochromatosis, unspecified (principal)
CPT/HCPCS: 36415; 82728; 83874

== ENCOUNTER 2021-03-22 02:07 | Outpatient (CLI) | payer MEDICARE, SELFPAY ==
[2021-03-22 09:01] LABS: Ferritin 42 ng/mL (26-388)
== END 2021-03-22 02:08 | disposition home or self-care (01) ==
LOC: LBO 02:07
PROVIDERS: PCP Family Medicine; Visit Provider Family Medicine
DX: E83.119 Hemochromatosis, unspecified (principal)
CPT/HCPCS: 36415; 82728

== ENCOUNTER 2021-04-26 04:10 | Outpatient (CLI) | payer MEDICARE, SELFPAY | END 2021-04-26 04:11 | disposition home or self-care (01) | LOC: LBO 04:11 | PROVIDERS: PCP Family Medicine; Visit Provider Family Medicine ==

== ENCOUNTER 2021-05-24 02:26 | Outpatient (RCR) | payer MEDICARE, SELFPAY | END 2021-06-18 23:59 | disposition home or self-care (01) | LOC: INF 02:26 | PROVIDERS: PCP Family Medicine; Visit Provider Family Medicine | DX: E83.119 Hemochromatosis, unspecified (principal) | CPT/HCPCS: 99195 ==

== ENCOUNTER 2021-05-24 02:55 | Outpatient (CLI) | payer MEDICARE, SELFPAY ==
[2021-05-24 09:03] LABS: Ferritin 173 ng/mL (26-388)
== END 2021-05-24 02:56 | disposition home or self-care (01) ==
LOC: LBO 02:55
PROVIDERS: PCP Family Medicine; Visit Provider Family Medicine
DX: E83.118 Other hemochromatosis (principal)
CPT/HCPCS: 36415; 99195; 82728

== ENCOUNTER 2021-06-21 04:16 | Outpatient (CLI) | payer MEDICARE, SELFPAY ==
[2021-06-21 09:19] LABS: Ferritin 98 ng/mL (26-388)
== END 2021-06-21 04:17 | disposition home or self-care (01) ==
LOC: LBO 04:16
PROVIDERS: PCP Family Medicine; Visit Provider Family Medicine
DX: E83.119 Hemochromatosis, unspecified (principal)
CPT/HCPCS: 36415; 82728

== ENCOUNTER 2021-07-26 01:50 | Outpatient (CLI) | payer MEDICARE, SELFPAY ==
[2021-07-26 09:49] LABS: Ferritin 44 ng/mL (26-388)
== END 2021-07-26 01:51 | disposition home or self-care (01) ==
PROVIDERS: PCP Family Medicine; Visit Provider Family Medicine
DX: E83.119 Hemochromatosis, unspecified (principal)
CPT/HCPCS: 36415; 82728

== ENCOUNTER 2021-08-23 03:50 | Outpatient (CLI) | payer MEDICARE, SELFPAY ==
[2021-08-23 09:04] LABS: Ferritin 32 ng/mL (26-388)
== END 2021-08-23 03:51 | disposition home or self-care (01) ==
LOC: LBO 03:50
PROVIDERS: PCP Family Medicine; Visit Provider Family Medicine
DX: E83.119 Hemochromatosis, unspecified
CPT/HCPCS: 36415; 82728

== ENCOUNTER 2021-09-20 03:06 | Outpatient (CLI) | payer MEDICARE, SELFPAY ==
[2021-09-20 09:22] LABS: Ferritin 35 ng/mL (26-388)
== END 2021-09-20 03:07 | disposition home or self-care (01) ==
LOC: LBO 03:06
PROVIDERS: PCP Family Medicine; Visit Provider Family Medicine
DX: E83.119 Hemochromatosis, unspecified (principal)
CPT/HCPCS: 36415; 82728

== ENCOUNTER 2021-10-25 03:56 | Outpatient (CLI) | payer MEDICARE, SELFPAY ==
[2021-10-25 09:29] LABS: Ferritin 39 ng/mL (26-388)
== END 2021-10-25 03:57 | disposition home or self-care (01) ==
LOC: LBO 03:56
PROVIDERS: PCP Family Medicine; Visit Provider Family Medicine
DX: E83.118 Other hemochromatosis (principal)
CPT/HCPCS: 36415; 82728

== ENCOUNTER 2021-11-22 14:43 | Outpatient (CLI) | payer MEDICARE, SELFPAY ==
[2021-11-22 09:52] LABS: Ferritin 73 ng/mL (26-388)
== END 2021-11-22 14:44 | disposition home or self-care (01) ==
LOC: LBO 14:44
PROVIDERS: PCP Family Medicine; Visit Provider Family Medicine
DX: E83.19 Other disorders of iron metabolism (principal)
CPT/HCPCS: 36415; 82728

== ENCOUNTER 2021-12-20 04:37 | Outpatient (RCR) | payer MEDICARE, SELFPAY | END 2022-01-18 23:59 | disposition home or self-care (01) | LOC: INF 04:37 | PROVIDERS: PCP Family Medicine; Visit Provider Family Medicine | DX: E83.119 Hemochromatosis, unspecified (principal) | CPT/HCPCS: 99195 ==

== ENCOUNTER 2021-12-20 10:51 | Outpatient (CLI) | payer MEDICARE, SELFPAY ==
[2021-12-20 09:00] LABS: Ferritin 114 ng/mL (26-388)
== END 2021-12-20 10:52 | disposition home or self-care (01) ==
LOC: LBO 10:53
PROVIDERS: PCP Family Medicine; Visit Provider Family Medicine
DX: E83.119 Hemochromatosis, unspecified (principal)
CPT/HCPCS: 36415; 99195; 82728

== ENCOUNTER 2022-01-24 02:17 | Outpatient (RCR) | payer MEDICARE, SELFPAY | END 2022-02-18 23:59 | disposition home or self-care (01) | LOC: INF 02:17 | PROVIDERS: PCP Family Medicine; Visit Provider Family Medicine | DX: E83.119 Hemochromatosis, unspecified (principal) | CPT/HCPCS: 99195 ==

== ENCOUNTER 2022-01-24 02:28 | Outpatient (CLI) | payer MEDICARE, SELFPAY ==
[2022-01-24 09:00] LABS: Ferritin 115 ng/mL (26-388)
== END 2022-01-24 02:29 | disposition home or self-care (01) ==
LOC: LBO 02:28
PROVIDERS: PCP Family Medicine; Visit Provider Family Medicine
DX: E83.119 Hemochromatosis, unspecified (principal)
CPT/HCPCS: 36415; 99195; 82728

== ENCOUNTER 2022-02-21 03:04 | Outpatient (CLI) | payer MEDICARE, SELFPAY ==
[2022-02-21 09:14] LABS: Ferritin 83 ng/mL (26-388)
== END 2022-02-21 03:05 | disposition home or self-care (01) ==
LOC: LBO 03:04
PROVIDERS: PCP Family Medicine; Visit Provider Family Medicine
DX: E83.119 Hemochromatosis, unspecified (principal)
CPT/HCPCS: 36415; 82728

== ENCOUNTER 2022-03-21 03:34 | Outpatient (CLI) | payer MEDICARE, SELFPAY ==
[2022-03-21 08:54] LABS: Anion Gap 4.4 mmol/L (3-11); BUN 12 mg/dL (7-18); CO2 32.6 mmol/L (21.0-32.0); CREATININE 1.1 mg/dL (0.70-1.30); Calcium 9.3 mg/dL (8.5-10.1); Chloride 98 mmol/L (98-107); Estimated GFR 72.67 (mL/min/1.73m2); Ferritin 53 ng/mL (26-388); Glucose 106 mg/dL (74-106); Potassium 3.8 mmol/L (3.5-5.1); Sodium 135 mmol/L (136-145)
== END 2022-03-21 03:35 | disposition home or self-care (01) ==
LOC: LBO 03:35
PROVIDERS: PCP Family Medicine; Visit Provider Family Medicine
DX: E83.119 Hemochromatosis, unspecified (principal)
CPT/HCPCS: 36415; 80048; 82728

== ENCOUNTER 2022-04-25 01:55 | Outpatient (RCR) | payer MEDICARE, SELFPAY | END 2022-05-21 23:59 | disposition home or self-care (01) | LOC: INF 01:55 | PROVIDERS: PCP Family Medicine; Visit Provider Family Medicine | DX: E83.119 Hemochromatosis, unspecified (principal) | CPT/HCPCS: 99195 ==

== ENCOUNTER 2022-04-25 02:23 | Outpatient (CLI) | payer MEDICARE, SELFPAY ==
[2022-04-25 09:31] LABS: Ferritin 114 ng/mL (26-388)
== END 2022-04-25 02:24 | disposition home or self-care (01) ==
LOC: LBO 02:23
PROVIDERS: PCP Family Medicine; Visit Provider Family Medicine
DX: E83.119 Hemochromatosis, unspecified (principal)
CPT/HCPCS: 36415; 99195; 82728

== ENCOUNTER 2022-05-23 04:08 | Outpatient (CLI) | payer MEDICARE, SELFPAY ==
[2022-05-23 10:05] LABS: Ferritin 55 ng/mL (26-388)
== END 2022-05-23 04:09 | disposition home or self-care (01) ==
PROVIDERS: PCP Family Medicine; Visit Provider Family Medicine
DX: E83.119 Hemochromatosis, unspecified (principal)
CPT/HCPCS: 36415; 82728

== ENCOUNTER 2022-06-20 03:02 | Outpatient (CLI) | payer MEDICARE, SELFPAY ==
[2022-06-20 09:06] LABS: Ferritin 41 ng/mL (26-388)
== END 2022-06-20 03:03 | disposition home or self-care (01) ==
PROVIDERS: PCP Family Medicine; Visit Provider Family Medicine
DX: E83.119 Hemochromatosis, unspecified (principal)
CPT/HCPCS: 36415; 82728

== ENCOUNTER 2022-07-25 03:26 | Outpatient (CLI) | payer MEDICARE, SELFPAY ==
[2022-07-25 09:16] LABS: Ferritin 81 ng/mL (26-388)
== END 2022-07-25 03:27 | disposition home or self-care (01) ==
PROVIDERS: PCP Family Medicine; Visit Provider Family Medicine
DX: E83.119 Hemochromatosis, unspecified (principal)
CPT/HCPCS: 36415; 82728

== ENCOUNTER 2022-08-22 01:31 | Outpatient (RCR) | payer MEDICARE, SELFPAY | END 2022-09-18 23:59 | disposition home or self-care (01) | LOC: INF 01:31 | PROVIDERS: PCP Family Medicine; Visit Provider Family Medicine | DX: E83.119 Hemochromatosis, unspecified (principal) | CPT/HCPCS: 99195 ==

== ENCOUNTER 2022-08-22 01:43 | Outpatient (CLI) | payer MEDICARE, SELFPAY ==
[2022-08-22 09:10] LABS: Ferritin 113 ng/mL (26-388)
== END 2022-08-22 01:44 | disposition home or self-care (01) ==
PROVIDERS: PCP Family Medicine; Visit Provider Family Medicine
DX: E83.119 Hemochromatosis, unspecified (principal)
CPT/HCPCS: 36415; 99195; 82728

== ENCOUNTER 2022-08-30 00:42 | Outpatient (CLI) | payer MEDICARE, SELFPAY ==
--- NOTE | 2022-08-30 08:15 | DI.US_ITS ---
Exam(s) US LOWER EXTREMITY VENOUS LT EXAM: US LOWER EXTREMITY VENOUS LT CLINICAL HISTORY: left leg swelling and pain, ? dvt,i82.401,recurr acute dvt. TECHNIQUE: Lower extremity venous ultrasound performed using grayscale, color-flow, and spectral Do ppler analysis. COMPARISON: US US EXTREMITY VENOUS BI from 06/09/2020 FINDINGS: The common femoral, femoral and popliteal veins demonstrate normal compressibility, augmentation, and color Doppler. The posterior tibial veins are patent. The saphenous vein shows foci of echogenic, n onocclusive thrombus likely old thrombus, in the mid to distal thigh at level of knee and upper calf. No hematoma or Cowan's cyst is seen. Enlarged, reactive lymph nodes noted in groin region. IMPRESSION: Echogenic mild nonocclusive thrombus in the saphenous vein. No evidence of DVT. DATA REPOSITORY:
== END 2022-08-30 01:02 ==
LOC: DI 00:42
PROVIDERS: PCP Family Medicine; Visit Provider Physician Assistant
DX: I82.401 Acute embolism and thrombosis of unspecified deep veins of right lower extremity (principal)
CPT/HCPCS: 93971

== ENCOUNTER 2022-09-19 03:54 | Outpatient (RCR) | payer MEDICARE, SELFPAY | END 2022-10-18 23:59 | disposition home or self-care (01) | LOC: INF 03:54 | PROVIDERS: PCP Family Medicine; Visit Provider Family Medicine | DX: E83.119 Hemochromatosis, unspecified (principal) | CPT/HCPCS: 99195 ==

== ENCOUNTER 2022-09-19 04:55 | Outpatient (CLI) | payer MEDICARE, SELFPAY ==
[2022-09-19 09:05] LABS: Ferritin 109 ng/mL (26-388)
== END 2022-09-19 04:56 | disposition home or self-care (01) ==
PROVIDERS: PCP Family Medicine; Visit Provider Family Medicine
DX: E83.119 Hemochromatosis, unspecified (principal)
CPT/HCPCS: 36415; 99195; 82728

== ENCOUNTER 2022-10-24 03:09 | Outpatient (CLI) | payer MEDICARE, SELFPAY ==
[2022-10-24 09:49] LABS: Ferritin 56 ng/mL (26-388)
== END 2022-10-24 03:10 | disposition home or self-care (01) ==
LOC: LBO 03:10
PROVIDERS: PCP Family Medicine; Visit Provider Family Medicine
DX: E83.119 Hemochromatosis, unspecified (principal)
CPT/HCPCS: 36415; 82728

== ENCOUNTER 2022-11-21 03:47 | Outpatient (RCR) | payer MEDICARE, SELFPAY | END 2022-12-19 23:59 | disposition home or self-care (01) | LOC: INF 03:47 | PROVIDERS: PCP Family Medicine; Visit Provider Family Medicine | DX: E83.119 Hemochromatosis, unspecified (principal) | CPT/HCPCS: 99195 ==

== ENCOUNTER 2022-11-21 04:18 | Outpatient (CLI) | payer MEDICARE, SELFPAY ==
[2022-11-21 09:17] LABS: Ferritin 109 ng/mL (26-388)
== END 2022-11-21 04:19 | disposition home or self-care (01) ==
PROVIDERS: PCP Family Medicine; Visit Provider Family Medicine
DX: E83.119 Hemochromatosis, unspecified (principal)
CPT/HCPCS: 36415; 99195; 82728

== ENCOUNTER 2022-12-26 04:04 | Outpatient (RCR) | payer MEDICARE, SELFPAY | END 2023-01-18 23:59 | disposition home or self-care (01) | LOC: INF 04:04 | PROVIDERS: PCP Family Medicine; Visit Provider Family Medicine | DX: E83.119 Hemochromatosis, unspecified (principal) ==

== ENCOUNTER 2022-12-26 04:19 | Outpatient (CLI) | payer MEDICARE, SELFPAY ==
[2022-12-26 08:54] LABS: Ferritin 76 ng/mL (26-388)
== END 2022-12-26 04:20 | disposition home or self-care (01) ==
PROVIDERS: PCP Family Medicine; Visit Provider Family Medicine
DX: E83.119 Hemochromatosis, unspecified (principal)
CPT/HCPCS: 36415; 82728

== ENCOUNTER 2023-01-23 03:52 | Outpatient (RCR) | payer MEDICARE, SELFPAY | END 2023-02-18 23:59 | disposition home or self-care (01) | LOC: INF 03:52 | PROVIDERS: PCP Family Medicine; Visit Provider Family Medicine | DX: E83.119 Hemochromatosis, unspecified (principal) | CPT/HCPCS: 99195 ==

== ENCOUNTER 2023-01-23 04:56 | Outpatient (CLI) | payer MEDICARE, SELFPAY ==
[2023-01-23 08:48] LABS: Ferritin 141 ng/mL (26-388)
== END 2023-01-23 04:57 | disposition home or self-care (01) ==
PROVIDERS: PCP Family Medicine; Visit Provider Family Medicine
DX: E83.119 Hemochromatosis, unspecified (principal)
CPT/HCPCS: 36415; 99195; 82728

== ENCOUNTER 2023-02-20 02:40 | Outpatient (CLI) | payer MEDICARE, SELFPAY ==
[2023-02-20 09:04] LABS: Ferritin 46 ng/mL (26-388)
== END 2023-02-20 02:41 | disposition home or self-care (01) ==
PROVIDERS: PCP Family Medicine; Visit Provider Family Medicine
DX: E83.119 Hemochromatosis, unspecified (principal)
CPT/HCPCS: 36415; 82728

== ENCOUNTER 2023-03-27 04:40 | Outpatient (CLI) | payer MEDICARE, SELFPAY ==
[2023-03-27 08:49] LABS: Ferritin 35 ng/mL (26-388)
== END 2023-03-27 04:41 | disposition home or self-care (01) ==
LOC: LBO 04:40
PROVIDERS: PCP Family Medicine; Visit Provider Family Medicine
DX: E83.119 Hemochromatosis, unspecified (principal)
CPT/HCPCS: 36415; 82728

== ENCOUNTER 2023-04-24 03:52 | Outpatient (CLI) | payer MEDICARE, SELFPAY ==
[2023-04-24 09:37] LABS: Ferritin 71 ng/mL (26-388)
== END 2023-04-24 03:53 | disposition home or self-care (01) ==
PROVIDERS: PCP Family Medicine; Visit Provider Family Medicine
DX: E83.119 Hemochromatosis, unspecified (principal)
CPT/HCPCS: 36415; 82728

== ENCOUNTER 2023-05-22 04:36 | Outpatient (CLI) | payer MEDICARE, SELFPAY ==
[2023-05-22 09:05] LABS: Ferritin 44 ng/mL (26-388)
== END 2023-05-22 04:37 | disposition home or self-care (01) ==
PROVIDERS: PCP Family Medicine; Visit Provider Family Medicine
DX: E83.119 Hemochromatosis, unspecified (principal)
CPT/HCPCS: 36415; 82728

== ENCOUNTER 2023-06-26 03:27 | Outpatient (CLI) | payer MEDICARE, SELFPAY ==
[2023-06-26 08:48] LABS: Ferritin 44 ng/mL (26-388)
== END 2023-06-26 03:28 | disposition home or self-care (01) ==
PROVIDERS: PCP Family Medicine; Visit Provider Family Medicine
DX: E83.119 Hemochromatosis, unspecified (principal)
CPT/HCPCS: 36415; 82728

== ENCOUNTER 2023-07-24 05:01 | Outpatient (CLI) | payer MEDICARE, SELFPAY ==
[2023-07-24 08:45] LABS: Ferritin 55 ng/mL (26-388)
== END 2023-07-24 05:02 | disposition home or self-care (01) ==
LOC: LBO 05:01
PROVIDERS: PCP Family Medicine; Visit Provider Family Medicine
DX: E83.119 Hemochromatosis, unspecified (principal)
CPT/HCPCS: 36415; 82728

== ENCOUNTER 2023-08-21 04:55 | Outpatient (CLI) | payer MEDICARE, SELFPAY ==
[2023-08-21 08:51] LABS: Ferritin 87 ng/mL (26-388)
== END 2023-08-21 04:56 | disposition home or self-care (01) ==
PROVIDERS: PCP Family Medicine; Visit Provider Family Medicine
DX: E83.119 Hemochromatosis, unspecified (principal)
CPT/HCPCS: 36415; 82728

== ENCOUNTER 2023-08-28 13:31 | Outpatient (CLI) | payer MEDICARE, SELFPAY ==
[2023-08-28 13:32] LABS: Abs Immature Grans 0.02 10^3/uL (0.0-0.06); Absolute Basophil Count 0.05 10^3/uL (0.0-0.2); Absolute Eosinophil Count 0.11 10^3/uL (0.0-0.7); Absolute Lymphocyte Count 1.45 10^3/uL (1.2-3.4); Absolute Monocyte Count 0.39 10^3/uL (0.1-0.8); Absolute Neutrophil Count 2.81 10^3/uL (1.2-6.7); Eosinophils % 2.3 %; HCT 50.1 % (40.0-50.0); HGB 17.4 g/dL (13.5-17.5); Immature Grans % 0.4 %; MCH 36.7 pg (27.0-33.0); MCHC 34.7 % (32.0-36.0); MPV 8.7 fL (8.0-11.0); Monocytes % 8.1 %; Neutrophils % 58.2 %; Platelet Count 189 10^3/uL (130-400); RBC 4.74 10^6/uL (4.36-5.78); RDW 14.3 % (11.8-14.1); RDW-SD 56.1 fL; WBC 4.83 10^3/uL (4.4-10.8)
[2023-08-28 13:34] LABS: ESR 31 mm/hr (0-20); MCV 106 fL (80-95)
[2023-08-28 13:39] LABS: INR 1.1 (0.9-1.1); Prothrombin Time 11.1 sec (9.1-11.1)
[2023-08-28 13:50] LABS: ALT 25 U/L (16-63); AST 28 U/L (15-37); Albumin 3.6 g/dL (3.4-5.0); Alkaline Phosphatase 103 U/L (46-116); Anion Gap 7.9 mmol/L (3-11); BUN 16 mg/dL (7-18); Bilirubin, Total 0.6 mg/dL (0.2-1.0); C-Reactive Protein 1.04 mg/dL (<or=0.5); CO2 31.1 mmol/L (21.0-32.0); CREATININE 1.1 mg/dL (0.70-1.30); Calcium 9.2 mg/dL (8.5-10.1); Chloride 102 mmol/L (98-107); Estimated GFR 72.22 (mL/min/1.73m2); Glucose 154 mg/dL (74-106); Potassium 3.9 mmol/L (3.5-5.1); Sodium 141 mmol/L (136-145); Total Protein 8.2 g/dL (6.4-8.2)
== END 2023-08-28 13:32 | disposition home or self-care (01) ==
LOC: LBO 13:32
PROVIDERS: PCP Family Medicine; Visit Provider Physician Assistant
DX: I77.6 Arteritis, unspecified (principal); E13.9 Other specified diabetes mellitus without complications
CPT/HCPCS: 36415; 80053; 85652; 85025; 85610; 86140

== ENCOUNTER 2023-09-25 05:00 | Outpatient (RCR) | payer MEDICARE, SELFPAY | END 2023-10-19 23:59 | disposition home or self-care (01) | LOC: INF 05:00 | PROVIDERS: PCP Family Medicine; Visit Provider Family Medicine | DX: E83.119 Hemochromatosis, unspecified (principal) | CPT/HCPCS: 99195 ==

== ENCOUNTER 2023-09-25 05:04 | Outpatient (CLI) | payer MEDICARE, SELFPAY ==
[2023-09-25 09:29] LABS: Ferritin 105 ng/mL (26-388)
== END 2023-09-25 05:05 | disposition home or self-care (01) ==
PROVIDERS: PCP Family Medicine; Visit Provider Family Medicine
DX: E83.119 Hemochromatosis, unspecified (principal)
CPT/HCPCS: 36415; 99195; 82728

== ENCOUNTER 2023-10-22 02:34 | Outpatient (CLI) | payer MEDICARE, SELFPAY ==
[2023-10-22 08:46] LABS: Ferritin 80 ng/mL (26-388)
== END 2023-10-22 02:35 | disposition home or self-care (01) ==
PROVIDERS: PCP Family Medicine; Visit Provider Family Medicine
DX: E83.119 Hemochromatosis, unspecified (principal)
CPT/HCPCS: 36415; 82728

== ENCOUNTER 2023-11-20 03:41 | Outpatient (RCR) | payer MEDICARE, SELFPAY | END 2023-12-20 23:59 | disposition home or self-care (01) | LOC: INF 03:41 | PROVIDERS: PCP Family Medicine; Visit Provider Family Medicine | DX: E83.119 Hemochromatosis, unspecified (principal) | CPT/HCPCS: 99195 ==

== ENCOUNTER 2023-11-20 03:54 | Outpatient (CLI) | payer MEDICARE, SELFPAY ==
[2023-11-20 09:10] LABS: Ferritin 107 ng/mL (26-388)
== END 2023-11-20 03:55 | disposition home or self-care (01) ==
PROVIDERS: PCP Family Medicine; Visit Provider Family Medicine
DX: E83.119 Hemochromatosis, unspecified (principal)
CPT/HCPCS: 36415; 99195; 82728

== ENCOUNTER 2023-12-25 03:35 | Outpatient (CLI) | payer MEDICARE, SELFPAY ==
[2023-12-25 09:16] LABS: Ferritin 58 ng/mL (26-388)
== END 2023-12-25 03:36 | disposition home or self-care (01) ==
PROVIDERS: PCP Family Medicine; Visit Provider Family Medicine
DX: E83.119 Hemochromatosis, unspecified (principal)
CPT/HCPCS: 36415; 82728

== ENCOUNTER 2024-01-13 13:01 | Outpatient (REF) | payer MEDICARE, SELFPAY ==
[2024-01-13 21:19] LABS: Bilirubin Negative (Negative); Blood Moderate (Negative); Clarity Cloudy (Clear); Glucose Negative (Negative); Ketones Negative (Negative); Leukocyte Esterase Large (Negative); Nitrite Negative (Negative); pH 7.5 (5-8)
[2024-01-13 21:55] LABS: Bacteria Many HPF (Negative); C & S Indicated? Yes; WBC >50 HPF (0-5)
== END 2024-01-13 13:02 | disposition home or self-care (01) ==
LOC: LBN 13:01
PROVIDERS: PCP Family Medicine; Visit Provider Nurse Practitioner Family
DX: R39.9 Unspecified symptoms and signs involving the genitourinary system (principal); R82.89 Other abnormal findings on cytological and histological examination of urine
CPT/HCPCS: 87077; 81003; 81015; 87086; 87186

== ENCOUNTER 2024-01-22 01:52 | Outpatient (CLI) | payer MEDICARE, SELFPAY ==
[2024-01-22 09:04] LABS: Ferritin 116 ng/mL (26-388)
== END 2024-01-22 01:53 | disposition home or self-care (01) ==
PROVIDERS: PCP Family Medicine; Visit Provider Family Medicine
DX: E83.19 Other disorders of iron metabolism (principal)
CPT/HCPCS: 36415; 99195; 82728

== ENCOUNTER 2024-01-28 10:30 | Outpatient (REF) | payer MEDICARE, SELFPAY | END 2024-01-28 10:31 | disposition home or self-care (01) | LOC: LBN 10:30 | PROVIDERS: PCP Family Medicine; Visit Provider Physician Assistant | DX: N39.0 Urinary tract infection, site not specified (principal); B96.29 Other Escherichia coli [E. coli] as the cause of diseases classified elsewhere | CPT/HCPCS: 87077; 87086; 87186 ==

== ENCOUNTER 2024-02-09 11:38 | Emergency (ER) | payer MEDICARE, SELFPAY ==
[2024-02-09 11:40] VITALS: BP 136/77; PULSE 107; RESP 18; TEMP 36; O2SAT 92
[2024-02-09 13:07] LABS: Abs Immature Grans 0.01 10^3/uL (0.0-0.06); Absolute Basophil Count 0.05 10^3/uL (0.0-0.2); Absolute Eosinophil Count 0.08 10^3/uL (0.0-0.7); Absolute Lymphocyte Count 1.38 10^3/uL (1.2-3.4); Absolute Monocyte Count 0.47 10^3/uL (0.1-0.8); Eosinophils % 1.6 %; HCT 47.4 % (40.0-50.0); HGB 16.4 g/dL (13.5-17.5); Immature Grans % 0.2 %; Lactate 1.1 mmol/L (0.6-1.4); Lymphocytes % 27.1 %; MCH 38.1 pg (27.0-33.0); MCHC 34.6 % (32.0-36.0); MCV 110 fL (80-95); MPV 8.8 fL (8.0-11.0); Monocytes % 9.2 %; Neutrophils % 60.9 %; Platelet Count 201 10^3/uL (130-400); RBC 4.31 10^6/uL (4.36-5.78); RDW 12.3 % (11.8-14.1); RDW-SD 50.9 fL; WBC 5.09 10^3/uL (4.4-10.8)
--- NOTE | 2024-02-09 13:15 | DI.CT_ITS ---
Exam(s) CT RENAL COLIC WO EXAM: CT RENAL COLIC WO CLINICAL HISTORY: hematuria, resistant uti, left flank pain. TECHNIQUE: Imaging Protocol: Axial computed tomography images with coronal and sagittal reformatted images were created and reviewed. COMPARISON: CT CT ABDOMEN PELVIS W from 06/09/2020 FINDINGS: ABDOMEN: Lung Bases: Scar atelectasis is seen in the left lingula. Liver: There is diffuse decreased attenuation of the liver consistent with fatty infiltration. No me asurable mass. Gallbladder and biliary tract: No radiodense calculus or biliary ductal dilation. Pancreas: Normal density, no abnormal calcifications or inflammatory process. Spleen: Normal. Kidneys: Normal size, contour and axis.No radiodense stones or obstructive uropathy. No masses seen. Adrenal glands: No mass is seen. Lymph nodes: Within normal limits. Abdominal Aorta: Abdominal portion non-dilated. Atherosclerotic calcification is present. PELVIS: Bladder:Symmetric distention, no gross wall thickening. There is air seen within the urinary bladder. Please see the section under bowel. The urinary bladder is otherwise unremarkable. No bladder sto otilia are present. Bowel: There is diverticulosis of the colon. The bowel shows no evidence of obstruction. Appendix i s unremarkable. There is a 2.2 cm collection of air interposed between the sigmoid colon and the uri nary bladder. (Series 3, image 63). There also appears to be a small focus of air within the wall o f the urinary bladder this area. Very mild infiltration of the soft tissues surrounding the sigmoid colon in this area are noted. There is also mild wall thickening of the sigmoid colon. The findings are suspicious for colonic mass or diverticulitis. The air collection presence of air within the ur inary bladder raises a question of a fistula. Peritoneal cavity: No ascites, collection or mesenteric inflammatory response. No free air. Reproductive organs: Unremarkable as visualized. Bones: There are old healed rib fractures. There is grade 1 spondylolisthesis of L5 on S1. Age-appr opriate degenerative changes are present throughout the visualized lumbar spine. Soft Tissues: Within normal limits. IMPRESSION: 1. Mild bowel wall thickening seen in the mid sigmoid colon with minimal inflammatory edmundo stranding around the bowel. Differential considerations included neoplasm versus acute diverticulitis. 2. 2.2 cm air-fluid collection interposed between the urinary bladder and the abnormal sigmoid colon. There is air seen within the urinary bladder. The findings are suspicious for a colovesical fistul a. 3. Subtle area of decreased attenuation in the right lobe of the liver centrally liver (series 3, tiffany ge 10). This may be secondary to the patient's fatty infiltration. Underlying mass cannot be exclud ed. A CT scan of the abdomen only with IV contrast with arterial and venous images is recommended. 4. No evidence of nephrolithiasis or hydronephrosis. 5. Findings were discussed with the emergency department. RADIATION DOSE DELIVERED: 538.79mGy.cm Total DLP DATA REPOSITORY: All CT scans at this facility are submitted to the National Radiology Data Registry (NRDR) Dose Index Registry (DIR) with the [employer] ([employer]). RADIATION OPTIMIZATION: All CT scans at this facility use at least one of these dose optimization te chniques: automated exposure control; mA and/or kV adjustment per patient size (includes targeted exa ms where dose is matched to clinical indication); or iterative reconstruction.
[2024-02-09 13:21] LABS: Diff Comment RBC Morph Reviewed; Macrocytosis 2+
[2024-02-09 13:26] LABS: ALT 41 U/L (16-63); AST 37 U/L (15-37); Albumin 3.3 g/dL (3.4-5.0); Alkaline Phosphatase 109 U/L (46-116); Anion Gap 7.9 mmol/L (3-11); BUN 16 mg/dL (7-18); Bilirubin, Total 0.68 mg/dL (0.2-1.0); CO2 31.1 mmol/L (21.0-32.0); CREATININE 1.1 mg/dL (0.70-1.30); Calcium 9.8 mg/dL (8.5-10.1); Chloride 103 mmol/L (98-107); Estimated GFR 72.22 (mL/min/1.73m2); Glucose 98 mg/dL (74-106); Potassium 4.2 mmol/L (3.5-5.1); Sodium 142 mmol/L (136-145)
--- NOTE | 2024-02-09 15:19 | W.ED.GENAD ---
Discharge Plan Disposition Patient Disposition: Home Condition: Stable Discharge Details Clinical Impression: Colovesical fistula, Bowel wall thickening, Lesion of liver, Cellulitis of left leg Primary Care Provider: Frank Funk ED Provider: Len Martinez Home Meds and New Rx's Prescriptions: Continued hydrochlorothiazide 25 mg tablet 25 mg PO DAILY Qty: 90 3RF aspirin [Adult Aspirin Regimen] 81 mg tablet,delayed release (DR/EC) 81 mg PO DAILY Eliquis 5 mg tablet 5 mg PO BID Qty: 180 3RF Rx Instructions: 5 mg twice daily to prevent clots, due to unprovoked DVT losartan 25 mg tablet 25 mg PO DAILY Qty: 90 3RF No Action naltrexone 50 mg Tablet 50 mg PO DAILY Qty: 14 0RF thiamine mononitrate (vit B1) [Vitamin B-1 (mononitrate)] 100 mg Tablet 100 mg PO DAILY Qty: 30 0RF ertapenem 1 gram recon soln 1 g IV DAILY Qty: 1 0RF Discharge Instructions Instructions: Cellulitis (Skin Infection), Adult ED Additional Instructions: Please take antibiotic as prescribed. This antibiotic was chosen to maximize coverage against resistant bacteria. This antibiotic may interact with your prescribed antihypertensive medication losartan. Please be sure to discuss this interaction with your doctor for ongoing monitoring. Please contact your primary care physician to arrange follow-up. Call today. Given chronic nature of left lower leg skin inflammation, I recommend you follow-up with a hard metals hand engraver for further assessment. Please follow-up with Dr. Gao, general surgery. He is recommending colonoscopy this week for further diagnostics. Return to the ER immediately for any worsening or new concerning symptoms. Referrals: [facility] [Provider Group] Frank Funk DO [Primary Care Provider] - Discharge Data Discharge Date/Time-TO BE ENTERED AT DEPARTURE: 02/09/24 16:17 HPI General Mode of arrival: ambulatory. Date/Time Provider Initiated Documentation: 02/09/24 12:42. Limitations to Documentation: no limitations. Information obtained by: patient. HPI Narrative: 68yo male smoker here with recurrent UTI and now left flank pain. Patient notes intermittent hematuria and passage of other nance-colored material. Patient also with left lower leg erythema. Patient states chronic intermittent infections of the left lower leg. Current rash started a few weeks ago and has persisted. Related Data Home Medications ?Medication ?Instructions ?Recorded ?Confirmed aspirin 81 mg tablet,delayed 81 mg PO DAILY 07/26/20 02/12/24 release (Adult Aspirin Regimen) apixaban 5 mg tablet (Eliquis) 5 mg PO BID #180 tabs 02/27/23 02/12/24 hydrochlorothiazide 25 mg tablet 25 mg PO DAILY #90 tabs 03/17/23 02/12/24 losartan 25 mg tablet 25 mg PO DAILY #90 tabs 08/29/23 02/12/24 ertapenem 1 gram solution for 1 g IV DAILY #1 ea 02/14/24 injection naltrexone 50 mg tablet 50 mg PO DAILY #14 tabs 02/14/24 thiamine mononitrate (vit B1) 100 100 mg PO DAILY #30 tabs 02/14/24 mg tablet (Vitamin B-1 (mononitrate)) Previous Rx's ?Medication ?Instructions ?Recorded apixaban 5 mg tablet (Eliquis) 5 mg PO BID #180 tabs 02/27/23 hydrochlorothiazide 25 mg tablet 25 mg PO DAILY #90 tabs 03/17/23 losartan 25 mg tablet 25 mg PO DAILY #90 tabs 08/29/23 ertapenem 1 gram solution for 1 g IV DAILY #1 ea 02/14/24 injection naltrexone 50 mg tablet 50 mg PO DAILY #14 tabs 02/14/24 thiamine mononitrate (vit B1) 100 100 mg PO DAILY #30 tabs 02/14/24 mg tablet (Vitamin B-1 (mononitrate)) Allergies Allergy/AdvReac Type Severity Reaction Status Date / Time lisinopril AdvReac Intermediate COUGH Verified 02/12/24 11:48 terbinafine (From Lamisil) AdvReac Intermediate weight Verified 02/12/24 11:48 loss, loss of taste General Stated Complaint: Cellulitis MARIA EUGENIA: 3 Review of Systems All systems reviewed & are unremarkable except as noted in HPI and below Constitutional Constitutional: Denies fever(s) Cardiovascular Cardiovascular: Denies chest pain Genitourinary Genitourinary: Reports as per HPI Integumentary/Breasts Skin/Breast: Reports as per HPI Exam Const General: cooperative and no acute distress HENMT Mouth: moist mucous membranes Eyes Conjunctivae: normal conjunctivae Sclera: normal sclerae Neck Neck: trachea midline and supple Resp Auscultation: clear to auscultation bilaterally, no rales, no rhonchi and no wheezes Cardio Rate: regular rate and not tachycardic Rhythm: regular rhythm GI Palpation: soft, not firm, no guarding, no masses, not rigid and nontender Neuro General: patient alert, patient awake and tone normal Extrem General: edema Laterality: left (mild lower leg) Left lower extremity: lower leg Details: erythema (Distal to the knee extending to ankle near circumferential); no ecchymosis and foot Details: vascular exam Details: dorsalis pedis pulse present Other: Distal sensation and motor intact. 2+ DP. Course Vital Signs Vital signs: Vital Signs Temperature 36.0 C L 02/09/24 11:40 Pulse 107 H 02/09/24 11:40 Respiratory Rate 18 02/09/24 11:40 Blood Pressure 136/77 02/09/24 11:40 Pulse Oximetry 92 02/09/24 11:40 Temperature 36.0 C L 02/09/24 11:40 Pulse 107 H 02/09/24 11:40 Respiratory Rate 18 02/09/24 11:40 Blood Pressure 136/77 02/09/24 11:40 Pulse Oximetry 92 02/09/24 11:40 Oxygen Delivery Method Room Air 02/09/24 11:40 Oxygen Flow Rate 0 02/09/24 11:40 Pain Level 5 02/09/24 11:40 Lab/Test Results Lab/Test Results: Laboratory Tests Range/Units 02/09/24 13:00 WBC (4.4-10.8) 10^3/uL 5.09 RBC (4.36-5.78) 10^6/uL 4.31 L Hgb (13.5-17.5) g/dL 16.4 Hct (40.0-50.0) % 47.4 MCV (80-95) fL 110 H MCH (27.0-33.0) pg 38.1 H MCHC (32.0-36.0) % 34.6 RDW (11.8-14.1) % 12.3 Plt Count (130-400) 10^3/uL 201 MPV (8.0-11.0) fL 8.8 Immature Gran % % 0.2 Neutrophils % % 60.9 Lymphocytes % % 27.1 Monocytes % % 9.2 Eosinophils % % 1.6 Basophils % % 1.0 Nucleated RBC % (0.0-0.3) % 0.0 Absolute Neutrophils (1.2-6.7) 10^3/uL 3.10 Absolute Lymphocytes (1.2-3.4) 10^3/uL 1.38 Absolute Monocytes (0.1-0.8) 10^3/uL 0.47 Absolute Eosinophils (0.0-0.7) 10^3/uL 0.08 Absolute Basophils (0.0-0.2) 10^3/uL 0.05 RBC Morphology See Below Macrocytosis 2+ VBG Lactate (0.6-1.4) mmol/L 1.1 Sodium (136-145) mmol/L 142 Potassium (3.5-5.1) mmol/L 4.2 Chloride (98-107) mmol/L 103 Carbon Dioxide (21.0-32.0) mmol/L 31.1 Anion Gap (3-11) mmol/L 7.9 BUN (7-18) mg/dL 16 Creatinine (0.70-1.30) mg/dL 1.1 Est GFR (CKD-EPI 2020) (mL/min/1.73m2) 72.22 Glucose (74-106) mg/dL 98 Calcium (8.5-10.1) mg/dL 9.8 Total Bilirubin (0.2-1.0) mg/dL 0.68 AST (15-37) U/L 37 ALT (16-63) U/L 41 Alkaline Phosphatase (46-116) U/L 109 Total Protein (6.4-8.2) g/dL 8.0 Albumin (3.4-5.0) g/dL 3.3 L Medical Decision Making 68yo male here with recurrent UTI and now left flank pain. Patient tachycardic on arrival. Afebrile. Normal blood pressure. Consider pyelonephritis vs renal stone vs other. CT abd/pelv interpreted by radiology: 1. Mild bowel wall thickening seen in the mid sigmoid colon with minimal inflammatory edmundo stranding around the bowel. Differential considerations included neoplasm versus acute diverticulitis. 2. 2.2 cm air-fluid collection interposed between the urinary bladder and the abnormal sigmoid colon. There is air seen within the urinary bladder. The findings are suspicious for a colovesical fistula. 3. Subtle area of decreased attenuation in the right lobe of the liver centrally liver (series 3, image 10). This may be secondary to the patient's fatty infiltration. Underlying mass cannot be excluded. A CT scan of the abdomen only with IV contrast with arterial and venous images is recommended. 4. No evidence of nephrolithiasis or hydronephrosis. 5. Findings were discussed with the emergency department. Labs reviewed: No leukocytosis. Normal lactate. I spoke with Dr. Gao, general surgery and discussed ED presentation and course. We reviewed the CT findings. He will plan to see the patient in follow-up later this week for colonoscopy and additional diagnostics. Patient also with acute exacerbation of erythematous rash left lower leg concerning for cellulitis. Patient was recently on 10-day course of cefuroxime and doxycycline without improvement. Plan to initiate treatment with Bactrim. Superior border of rash marked. Patient reassessed and has remained stable. Heart rate improved without intervention. All results were discussed with the patient. Patient understands importance of timely follow-up this week. Disposition decision was made weighing the risks and benefits of hospitalization versus outpatient treatment, the risk for further decompensation, and the patient's wishes. Prior to discharge, my usual and customary return precautions were reviewed with the patient - this included follow-up instructions and reason to return to the emergency department if condition worsens, does not improve as expected, or other new concerns arise. Lab Data Lab results reviewed: Yes I reviewed the patient's lab results. Labs: Laboratory Tests Range/Units 02/09/24 13:00 WBC (4.4-10.8) 10^3/uL 5.09 RBC (4.36-5.78) 10^6/uL 4.31 L Hgb (13.5-17.5) g/dL 16.4 Hct (40.0-50.0) % 47.4 MCV (80-95) fL 110 H MCH (27.0-33.0) pg 38.1 H MCHC (32.0-36.0) % 34.6 RDW (11.8-14.1) % 12.3 Plt Count (130-400) 10^3/uL 201 MPV (8.0-11.0) fL 8.8 Immature Gran % % 0.2 Neutrophils % % 60.9 Lymphocytes % % 27.1 Monocytes % % 9.2 Eosinophils % % 1.6 Basophils % % 1.0 Nucleated RBC % (0.0-0.3) % 0.0 Absolute Neutrophils (1.2-6.7) 10^3/uL 3.10 Absolute Lymphocytes (1.2-3.4) 10^3/uL 1.38 Absolute Monocytes (0.1-0.8) 10^3/uL 0.47 Absolute Eosinophils (0.0-0.7) 10^3/uL 0.08 Absolute Basophils (0.0-0.2) 10^3/uL 0.05 RBC Morphology See Below Macrocytosis 2+ VBG Lactate (0.6-1.4) mmol/L 1.1 Sodium (136-145) mmol/L 142 Potassium (3.5-5.1) mmol/L 4.2 Chloride (98-107) mmol/L 103 Carbon Dioxide (21.0-32.0) mmol/L 31.1 Anion Gap (3-11) mmol/L 7.9 BUN (7-18) mg/dL 16 Creatinine (0.70-1.30) mg/dL 1.1 Est GFR (CKD-EPI 2020) (mL/min/1.73m2) 72.22 Glucose (74-106) mg/dL 98 Calcium (8.5-10.1) mg/dL 9.8 Total Bilirubin (0.2-1.0) mg/dL 0.68 AST (15-37) U/L 37 ALT (16-63) U/L 41 Alkaline Phosphatase (46-116) U/L 109 Total Protein (6.4-8.2) g/dL 8.0 Albumin (3.4-5.0) g/dL 3.3 L Quality:SDOH Health Related Social Needs: No Data to Display PFSH All Active Problems (Updated 02/15/24 @ 00:04 by LIBBY THOMPSON) Hypokalemia (Acute) Venous insufficiency of left lower extremity (Acute) Venous stasis dermatitis (Acute) Venous stasis (Acute) Atherosclerosis of arteries (Acute) Fatty liver disease, nonalcoholic (Acute) Coronary artery calcification seen on CAT scan (Acute) ETOH abuse (Chronic) Severe sepsis (Acute) UTI (urinary tract infection) (Acute) LUCILA (acute kidney injury) (Acute) Acute hypoxic respiratory failure (Acute) Hypoxemia (Acute) Venous insufficiency of both lower extremities (Acute) Alcohol dependence, daily use (Acute) Dehydration (Acute) Cellulitis of left leg (Acute) Lesion of liver (Acute) Bowel wall thickening (Acute) Colovesical fistula (Acute) Chronic from colovesical fistula Psoriasis (Chronic) 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 (Acute 12/31/16) Apixaban following DVT 09/22/16 R femoral Carotid occlusion, right (Acute 03/28/07) R carotid occluded per [facility] 03/2007 Candidate for statin therapy due to risk of future cardiovascular event (Acute 07/28/15) 07/28/15 labwork: 10-year ASCVD risk = ~14% --> sent letter to pt recommending we discuss cholesterol medication at f/u Atrial septal aneurysm (Acute 03/31/07) Medical History (Updated 02/15/24 @ 00:04 by LIBBY THOMPSON) Hypotension Peripheral edema (07/04/14) Acute deep vein thrombosis (DVT) of femoral vein of right lower extremity (09/26/16) Calculus of kidney (07/14/10) Hypertension Hemochromatosis Surgical History (Updated 02/12/24 @ 20:28 by Eugenia Addison DO) Arthroplasty of knee (10/19/08) [facility] [place] Patient had a knee arthroscopy not an arthroplasty Family History Mother , Stroke at age 75. Stroke Father , Liver Disease at age 68. No problems noted. Sister No problems noted. Sister No problems noted. Brother , motor cycle accident at age 20. No problems noted. Brother No problems noted. Brother No problems noted. Brother No problems noted. Social History Smoking/Tobacco Use Status: Current every day Tobacco Type: cigarettes Smoking packs per day: 1 Smoking cigarettes per day: 20.0 Tobacco: How many years used: 52 Quit status: has quit before Second Hand Exposure: Yes (As a child) Smoking risk assessment performed?: Yes Alcohol Intake: current Alcohol Intake frequency: 0-2 drinks per day Alcohol type: wine Drug use: Never Substance use type: does not use Adopted: No Caregiver/Support person: No Foster care: No Household members: significant other and children Housing: house Number of Children: 1 number of grandchildren: 10 Communication Needs: None Education Level: vocational Do you need help understanding health information?: Often 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 Pets and animals: Yes (3 cats; chicken) Pets and animals: cat(s) and farm animals Sexually active: No Do you think of yourself as: straight/heterosexual Current gender identity: male What is your relationship status?: living with partner How often do you talk on the phone with friends or family?: twice per week How often do you get together with friends or relatives?: once per week Do you belong to any clubs or organized social groups?: no Panel score (0-1 are the most socially isolated patients): 2 What type of physical activity do you participate in: other Details: 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; takes care of pellets for stove Duration: 15-30 minutes/day Frequency: daily Sandie/Mormonism: Mu-Ism Special sandei needs: No Seatbelt use: always Helmet use: No (N/A - no activities that require this) Drive intox or ride w/intox jitney driver: No Working smoke detector in home: Yes Carbon monox detector in home: Yes Do you feel safe at home: Yes Do you feel safe in your relationship?: Yes PAWSS Have you Been Recently Intoxicated or Drunk Within the Last 30 days?: Yes Have you Ever Experienced Previous Episodes of Alcohol Withdrawal?: No Have you ever Experienced Withdrawal Seizures?: No Have you ever Experienced Delirium Tremens(DT)s?: No Have you ever undergone Alcohol Rehabilitation Treatment (i.e, inpt ot outpatient treatment programs)?: No Have you ever Experienced Blackouts?: No Have you ever Combined Alcohol with other Downers within the last 90 days?: No Have you ever Combined Alcohol with any other Substance of Abuse during the last 90 days?: No Positive Blood Alcohol level on Presentation? [PCS.BAL]: No Evidence of Increased Autonomic Activity (i.e. HR>120, tremor, sweating, agitation, nausea)?: No Result: 1
[2024-02-09 16:08] VITALS: BP 145/88; PULSE 89; RESP 18; O2SAT 93
[2024-02-09] MEDS: Sulfameth/Trimeth DS TAB 1 TAB PO (16:08)
[2024-02-09 16:15] VITALS: BP 145/88; PULSE 89; RESP 18; O2SAT 93
== END 2024-02-09 16:17 | disposition home or self-care (01) ==
PROVIDERS: Emergency Provider Student in an Organized Health Care Education/Training Program; PCP Family Medicine
DX: R10.32 Left lower quadrant pain (principal); L03.116 Cellulitis of left lower limb; K63.9 Disease of intestine, unspecified; N32.1 Vesicointestinal fistula; K76.9 Liver disease, unspecified
CPT/HCPCS: 80053; 99284; 74176; 83605; 85025; 99283

== ENCOUNTER 2024-02-09 19:36 | Outpatient (REF) | payer MEDICARE, SELFPAY | END 2024-02-09 19:37 | disposition home or self-care (01) | LOC: NCHCN 19:36 | PROVIDERS: PCP Family Medicine; Visit Provider Physician Assistant | DX: N39.0 Urinary tract infection, site not specified (principal); R82.89 Other abnormal findings on cytological and histological examination of urine | CPT/HCPCS: 87086 ==

== ENCOUNTER → 2024-02-12 10:43 | Outpatient (BNVA) | payer MEDICARE, SELFPAY | PROVIDERS: PCP Family Medicine; Referring Provider Family Medicine; Visit Provider Surgery | DX: L03.116 Cellulitis of left lower limb (principal); N32.1 Vesicointestinal fistula; E83.119 Hemochromatosis, unspecified; I82.411 Acute embolism and thrombosis of right femoral vein | CPT/HCPCS: 99214 ==

== ENCOUNTER 2024-02-12 11:38 | Inpatient (IN) | payer MEDICARE, SELFPAY ==
[2024-02-12] VITALS (164 sets, daily range): BP systolic 85–127; BP diastolic 54–85; PULSE 74–116; RESP 16–22; TEMP 36.9–37.1; O2SAT 89–100
--- NOTE | 2024-02-12 11:30 | RT.EKG_ITS ---
APPROVED REPORT Exam: Resting ECG Reason for Exam: Hypotension Patient Location: E HR:116 bpm ECG Measurements Heart Rate 116 AXIS OR 161 P 73 QRSd 128 QRS -69 QT 336 T 37 QTc 468 Conclusion Sinus tachycardia...rate> 99 Multiform ventricular premature complexes...short R-R, variable morphology Right bundle branch block...QRSd>120, terminal axis(90,270) Inferior infarct, old...Q >35mS, II III aVF motion artifact, no stemi
--- NOTE | 2024-02-12 11:51 | ED.GENADUL_ITS ---
Discharge Plan Discharge Details Chief Complaint: Cellulitis Primary Care Provider: Frank Funk ED Provider: Marcela Krueger Home Meds and New Rx's Prescriptions: No Action hydrochlorothiazide 25 mg tablet 25 mg PO DAILY Qty: 90 3RF aspirin [Adult Aspirin Regimen] 81 mg tablet,delayed release (DR/EC) 81 mg PO DAILY Eliquis 5 mg tablet 5 mg PO BID Qty: 180 3RF Rx Instructions: 5 mg twice daily to prevent clots, due to unprovoked DVT losartan 25 mg tablet 25 mg PO DAILY Qty: 90 3RF sulfamethoxazole-trimethoprim [Bactrim DS] 800-160 mg tablet 1 tab PO BID Qty: 23 0RF HPI General Date/Time Provider Initiated Documentation: 02/12/24 11:41 . HPI Narrative: Parviz is a 68-year-old male with h/o HTN and hypothyroidism (no longer on meds) who presents to the emergency department today for evaluation of left lower extremity cellulitis. He reports that has been on and off since the spring, but recently became worse 4 weeks ago. 3 days ago he began feeling unwell, with chills, fatigue, and generalized weakness with increasing pain to the leg. He has a history of recurrent DVT bilaterally, is on chronic anticoagulation with Eliquis for this. Does admit to daily tobacco and alcohol use. 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 Has colonoscopy scheduled tmrw. He admits that he had a low O2 saturation last time he went to [facility], says he has not been told this before and has no history of lung disease. No other rashes noted. Says he has been taking meds as prescribed, including antihypertensives and eliquis. Physical exam remarkable for erythematous rash to the left lower extremity from the knee to ankle, margins delineated in black marker. Leg is tender to palpation. Multiple excoriations noted, no open ulcers or wounds. +CMS to toes. Faint pulses palpable. Easy work of breathing, lung sounds clear bilaterally. Normal heart sounds. Vital signs significant for tachycardia and hypotension, BP 82/63. O2 sat in low 90s at rest. DDx includes but is not limited to:arterial or vascular occlusion, cellulitis, stasis or contact dermatitis, hypersensitivity vasculitis/hyperergic ictus reaction. Patient does not meet SIRS criteria. Low suspicion for DVT or PE based on current anticoagulation, however, must consider eliquis failure if cause of VS abnormalities not identified. I independently interpreted the following tests: Sed rate and CRP both modestly elevated. CBC, lactate, procalcitonin, VBG, and TSH all reassuring. CMP notable for elevated creatinine and BUN, 1.7 and 25 today versus 1.1 and 16 on 02/09/2024. CXR reassuring, no new infiltrates noted by radiologist- some unchanged L lateral lung base scarring noted. EKG performed, NSR rate 79, RBBB (incomplete RBBB noted in previous on 06/09/20), normal intervals. While in the emergency department Parviz received 1.5L lactated Ringer's bolus to help support blood pressure and kidney function; BP after third fluid bolus improved to 110s systolic. Pt has been asymptomatic and well feeling throughout ED stay. O2 via NC given to maintain sats >93%. Handoff report given to Ericka Vela NP evening BENEDICT. Awaiting CTA results, spoke with Dr. Singleton radiologist, we are waiting on second opinion on read from [facility]. Related Data Home Medications ?Medication ?Instructions ?Recorded ?Confirmed aspirin 81 mg tablet,delayed 81 mg PO DAILY 07/26/20 02/12/24 release (Adult Aspirin Regimen) apixaban 5 mg tablet (Eliquis) 5 mg PO BID #180 tabs 02/27/23 02/12/24 hydrochlorothiazide 25 mg tablet 25 mg PO DAILY #90 tabs 03/17/23 02/12/24 losartan 25 mg tablet 25 mg PO DAILY #90 tabs 08/29/23 02/12/24 sulfamethoxazole 800 1 tab PO BID #23 tabs 02/09/24 02/12/24 mg-trimethoprim 160 mg tablet (Bactrim DS) Previous Rx's ?Medication ?Instructions ?Recorded apixaban 5 mg tablet (Eliquis) 5 mg PO BID #180 tabs 02/27/23 hydrochlorothiazide 25 mg tablet 25 mg PO DAILY #90 tabs 03/17/23 losartan 25 mg tablet 25 mg PO DAILY #90 tabs 08/29/23 sulfamethoxazole 800 1 tab PO BID #23 tabs 02/09/24 mg-trimethoprim 160 mg tablet (Bactrim DS) Allergies Allergy/AdvReac Type Severity Reaction Status Date / Time lisinopril AdvReac Intermediate COUGH Verified 02/12/24 11:48 terbinafine (From Lamisil) AdvReac Intermediate weight Verified 02/12/24 11:48 loss, loss of taste General Stated Complaint: Cellulitis MARIA EUGENIA: 3 Exam Const General: cooperative, healthy appearing, comfortable, no acute distress, well developed and well groomed Nutritional Appearance: average body habitus Orientation: alert and oriented x3 Resp Effort & Inspection: normal respiratory effort and able to speak in complete sentences Auscultation: clear to auscultation bilaterally Cardio Jugular venous pressure: no JVD Rate: regular rate and tachycardic Rhythm: regular rhythm Pulses: dorsalis pedis present Skin Rashes: rashes noted (L Lower extremity erythema w/ excoriations) Other: Extrem Right lower extremity: normal to inspection Left lower extremity: normal capillary refill, knee Details: normal to inspection, lower leg Details: erythema and tenderness and foot Details: normal to inspection and toes with normal ROM; no edema Course Vital Signs Vital signs: Vital Signs Temperature 37.1 C 02/12/24 11:41 Pulse 116 H 02/12/24 11:41 Respiratory Rate 20 02/12/24 11:41 Blood Pressure 100/62 02/12/24 11:41 Pulse Oximetry 91 L 02/12/24 11:41 Temperature 37.1 C 02/12/24 11:41 Pulse 116 H 02/12/24 11:41 Respiratory Rate 20 02/12/24 11:41 Blood Pressure 100/62 02/12/24 11:41 Pulse Oximetry 91 L 02/12/24 11:41 Pain Level 5 02/12/24 11:41 Medical Decision Making Imaging Data Radiologic Study: Radiologist's impression: Exam(s) XR CHEST 2V PA LATERAL EXAM: XR CHEST 2V PA LATERAL CLINICAL HISTORY: low O2 sat. TECHNIQUE: 2D digital imaging was performed. COMPARISON: No exams were available for comparison FINDINGS: 2 views: Heart size is normal. The mediastinum is not widened. Scarring lateral left lung base is unchanged. There are no new infiltrates nor pleural effusions. No evidence of pulmonary edema. No fractures. IMPRESSION: No acute pulmonary findings. Quality:SDOH Health Related Social Needs: 2 No Data to Display PFSH All Active Problems (Updated 02/12/24 @ 13:08 by Eugenia Addison DO) Venous insufficiency of both lower extremities (Acute) Alcohol dependence, daily use (Acute) Dehydration (Acute) Hypotension (Acute) Cellulitis of left leg (Acute) Lesion of liver (Acute) Bowel wall thickening (Acute) Colovesical fistula (Acute) Non-pressure ulcer of right lower extremity (Acute) Psoriasis (Chronic) 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/16) Apixaban following DVT 09/22/16 R femoral Carotid occlusion, right (Acute 03/28/07) R [facility] Candidate for statin therapy due to risk of future cardiovascular event (Acute 07/28/15) 07/28/15 labwork: 10-year ASCVD risk = ~14% --> sent letter to pt recommending we discuss cholesterol medication at f/u Atrial septal aneurysm (Acute 03/31/07) Medical History Peripheral edema (07/04/14) Acute deep vein thrombosis (DVT) of femoral vein of right lower extremity (09/26/16) Calculus of kidney (07/14/10) Hypertension Hemochromatosis Surgical History Arthroplasty of knee (10/19/08) YOLA [facility] Family History Mother , Stroke at age 75. Stroke Father , Liver Disease at age 68. No problems noted. Sister No problems noted. Sister No problems noted. Brother , motor cycle accident at age 20. No problems noted. Brother No problems noted. Brother No problems noted. Brother No problems noted. Social History Smoking/Tobacco Use Status: Current every day Tobacco Type: cigarettes Smoking packs per day: 1 Smoking cigarettes per day: 20.0 Tobacco: How many years used: 52 Quit status: has quit before Second Hand Exposure: Yes (As a child) Smoking risk assessment performed?: Yes Alcohol Intake: current Alcohol Intake frequency: 0-2 drinks per day Alcohol type: wine Drug use: Never Substance use type: does not use Adopted: No Caregiver/Support person: No Foster care: No Household members: significant other and children Housing: house Number of Children: 1 number of grandchildren: 10 Communication Needs: None Education Level: vocational Do you need help understanding health information?: Often 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 Pets and animals: Yes (3 cats; chicken) Pets and animals: cat(s) and farm animals Sexually active: No Do you think of yourself as: straight/heterosexual Current gender identity: male What is your relationship status?: living with partner How often do you talk on the phone with friends or family?: twice per week How often do you get together with friends or relatives?: once per week Do you belong to any clubs or organized social groups?: no Panel score (0-1 are the most socially isolated patients): 2 What type of physical activity do you participate in: other Details: 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
--- NOTE | 2024-02-12 12:00 | DI.CT_ITS ---
Exam(s) CT ABD AORTA CTA W RUNOFF EXAM: CT ABD AORTA CTA W RUNOFF CLINICAL HISTORY: chronic LLE cellulitis. TECHNIQUE: Imaging Protocol: Axial computed tomography images with coronal and sagittal reformatted images were created and reviewed CONTRAST MATERIAL: Intravenous: Omnipaque 350 Contrast volume:100 ml Oral: None COMPARISON: No exams were available for comparison FINDINGS: There is no evidence of abdominal aortic aneurysm. The abdominal aorta is calcified but not enlarged . There is calcified plaque but no critical stenosis in the common iliac arteries nor at the junctions with the external iliac arteries. Calcified plaque is seen throughout the external iliac arteries bu t without significant focal stenosis. Both internal iliac arteries are patent. Common femoral arter ies are calcified but without prominent stenosis. Both SFA arteries in the thighs exhibit no significant stenosis proximally nor at their mid aspects. There is some calcified plaque in these vessels in Kendall's canal but no hemodynamically significant stenosis and both SFA arteries are continuous with patent bilateral popliteal arteries. There is no evidence of popliteal artery aneurysms. Right calf runoff: Right popliteal artery exhibits mild stenosis. The right tibioperoneal trunk is patent with some dis rupesh eccentric calcified plaque but no critical stenosis. There is no stenosis at the origin of the r ight anterior tibial artery. There is three-vessel runoff in the right calf. The right anterior tib ial artery is continuous into the foot as the dorsalis pedis artery. The right posterior tibial bob ry is opacified to the medial malleolus level where it becomes the plantar vessels. The right perone al artery is opacified to the distal calf level. Left calf runoff: Interpretation of left calf runoff is somewhat difficult because of venous contamination possibly fro m AV communication. There is circumferential narrowing of the left popliteal artery, approximately 50 percent. ABDOMEN: There is no evidence of abdominal aortic aneurysm nor dissection.There is no aneurysmal dilatation of the common iliac arteries.The celiac and superior mesenteric arteries are patent. There is no ascites. LIVER: There are no focal hepatic lesions nor dilatation of intrahepatic ducts. GALLBLADDER/BILIARY: No obvious gallbladder pathology. CBD is not dilated. PANCREAS: No evidence of pancreatic mass nor dilatation of the pancreatic duct. SPLEEN: Spleen is not enlarged. There are no intrasplenic lesions. Splenic and portal veins are barrera nt. ADRENALS: There are no significant adrenal masses. KIDNEYS: No cysts evident. No calculi nor hydronephrosis. No solid renal masses. ABDOMINAL AORTA: The abdominal aorta is not enlarged. LYMPH NODES: There is no retroperitoneal nor para-aortic adenopathy. No obvious mesenteric masses. ABDOMINAL WALL: No evidence of significant anterior abdominal wall hernia. GI: There is extensive sigmoid diverticulosis. There is a dominant inferior diverticulum coming off t he inferior wall of the sigmoid and intimately associated with the adjacent roof of the urinary bladd er which appears thickened. This may be related to prior or subacute diverticulitis. There is no gas in the urinary bladder lumen. PELVIS: LYMPH NODES: There is no intrapelvic nor inguinal adenopathy. GI: No evidence of appendicitis.No evidence of sigmoid diverticulitis. URINARY BLADDER: Normally thickened wall. REPRODUCTIVE: Prostate size normal. OSSEOUS: No significant osseous lesions. Cannot assess for compression fractures as there are no sagittal images. IMPRESSION: 1. There is multilevel calcified plaque in the aortoiliac segments without hemodynamically significan t stenosis. 2. Also no significant stenosis in the SFA arteries in both thighs. 3. There is three-vessel runoff in the right calf. 4. There is venous contamination in the left calf vessels. This may be related to asymmetric inflamma tory process in the left calf. This makes assessment of the arteries difficult to differentiate from the veins. Please note that this case was sent off to [facility] for 2nd opinion reading because of the f indings in the left calf. Please refer to that separate report RADIATION DOSE DELIVERED: 771.85mGy.cm Total DLP DATA REPOSITORY: All CT scans at this facility are submitted to the National Radiology Data Registry (NRDR) Dose Index Registry (DIR) with the [employer] (ACR). RADIATION OPTIMIZATION: All CT scans at this facility use at least one of these dose optimization te chniques: automated exposure control; mA and/or kV adjustment per patient size (includes targeted exa ms where dose is matched to clinical indication); or iterative reconstruction.
[2024-02-12 12:17] LABS: Abs Immature Grans 0.03 10^3/uL (0.0-0.06); Absolute Basophil Count 0.05 10^3/uL (0.0-0.2); Absolute Eosinophil Count 0.18 10^3/uL (0.0-0.7); Absolute Lymphocyte Count 1.12 10^3/uL (1.2-3.4); Absolute Monocyte Count 0.64 10^3/uL (0.1-0.8); Absolute Neutrophil Count 4.11 10^3/uL (1.2-6.7); Basophils % 0.8 %; Eosinophils % 2.9 %; HCT 49.1 % (40.0-50.0); HGB 16.9 g/dL (13.5-17.5); Immature Grans % 0.5 %; Lymphocytes % 18.3 %; MCH 38.2 pg (27.0-33.0); MCHC 34.4 % (32.0-36.0); MCV 111 fL (80-95); MPV 9.1 fL (8.0-11.0); Monocytes % 10.4 %; Neutrophils % 67.1 %; Platelet Count 191 10^3/uL (130-400); RBC 4.42 10^6/uL (4.36-5.78); RDW 12.5 % (11.8-14.1); RDW-SD 52.1 fL; WBC 6.13 10^3/uL (4.4-10.8)
[2024-02-12 12:24] LABS: ESR 26 mm/hr (0-20)
[2024-02-12] MEDS: Lactated Ringers 1,000 ML 1000 ML IV (12:32)
[2024-02-12 12:36] LABS: ALT 29 U/L (16-63); AST 34 U/L (15-37); Albumin 3.5 g/dL (3.4-5.0); Alkaline Phosphatase 96 U/L (46-116); Anion Gap 9.4 mmol/L (3-11); BUN 25 mg/dL (7-18); Bilirubin, Total 0.78 mg/dL (0.2-1.0); C-Reactive Protein 8.97 mg/dL (<or=0.5); CO2 28.6 mmol/L (21.0-32.0); CREATININE 1.7 mg/dL (0.70-1.30); Calcium 9.9 mg/dL (8.5-10.1); Chloride 98 mmol/L (98-107); Estimated GFR 42.83 (mL/min/1.73m2); Glucose 94 mg/dL (74-106); Potassium 3.5 mmol/L (3.5-5.1); Sodium 136 mmol/L (136-145); Total Protein 9.2 g/dL (6.4-8.2)
[2024-02-12 12:54] LABS: Lactate 1.5 mmol/L (0.6-1.4)
[2024-02-12 13:00] LABS: Procalcitonin < 0.1 ng/mL
--- NOTE | 2024-02-12 13:00 | DI.RAD_ITS ---
Exam(s) XR CHEST 2V PA LATERAL EXAM: XR CHEST 2V PA LATERAL CLINICAL HISTORY: low O2 sat. TECHNIQUE: 2D digital imaging was performed. COMPARISON: No exams were available for comparison FINDINGS: 2 views: Heart size is normal. The mediastinum is not widened. Scarring lateral left lung base is unchanged. There are no new infiltrates nor pleural effusions. N o evidence of pulmonary edema. No fractures. IMPRESSION: No acute pulmonary findings. DATA REPOSITORY: RADIATION DOSE DELIVERED:
--- NOTE | 2024-02-12 13:07 | SCONE_ITS ---
Date of service: 02/12/24 Time of Service: 13:07 Assessment and Plan Assessment and plan (1) Alcohol dependence, daily use: Status: Acute (2) Hypotension: Status: Acute Assessment and plan: Secondary to dehydration from diarrhea and pain associated with eating due to probable colovesical fistula (3) Essential hypertension: Status: Acute (4) Atrial septal aneurysm: Status: Acute (5) Carotid occlusion, right: Status: Acute (6) Candidate for statin therapy due to risk of future cardiovascular event: Status: Acute (7) Recurrent acute deep vein thrombosis (DVT) of right lower extremity: Status: Acute (8) HX: 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: Status: Acute (9) Hypothyroidism: Status: Acute (10) Hepatic steatosis: Status: Acute (11) Hemochromatosis: Status: Acute (12) Dehydration: Status: Acute (13) Colovesical fistula: Status: Acute Assessment and plan: hold ellequis today flex sig in am Probable from reviewing CT from when the patient was in the ER on Friday Will consult with urology as well Zosyn PT 45 mins spent in direct pt care and 50 in non face to face time (14) Cellulitis of left leg: Status: Acute Assessment and plan: Also significant degree of arterial insufficiency present as well contributing to nonhealing Also poor local wound care and poor psychosocial factors Unna boot once infection is under control (15) Non-pressure ulcer of right lower extremity: Status: Acute Assessment and plan: Will address wounds in AM. May require debridement in OR (16) Status post CVA: Status: Acute (17) Psoriasis: Status: Chronic (18) Tobacco use disorder: Status: Acute (19) Venous insufficiency of both lower extremities: Status: Acute (20) Coronary artery calcification seen on CAT scan: Status: Acute (21) Fatty liver disease, nonalcoholic: Status: Acute (22) Atherosclerosis of arteries: Status: Acute (23) Venous stasis: Status: Acute (24) Venous stasis dermatitis: Status: Acute (25) Venous insufficiency of left lower extremity: Status: Acute History of Present Illness Narrative: Patient is a 68-year-old male who was seen in the ER on Friday. He has been in and out of the urgent cares for the last 6 weeks and being treated for a UTI and cellulitis of the left lower extremity. He is a smoker and drinks alcohol daily. He has a history of a carotid occlusion on the right resulting in a left-sided stroke. He has a history of coronary disease and hemochromatosis. He was in the ER [facility] with symptoms of UTI and flank pain. He was seen by my partner Dr. Gao who was current concern for a colovesical fistula. He had changes on his CT that is highly suspect. He has a persistent UTI. He passes blood/sediment when urinating. He also persistently passes gas when urinating. Patient has been having severe left lower quadrant and suprapubic pain. He is actually been having more constipation than diarrhea. He has not been able to eat or drink anything for the past 48 hours. He has been on multiple rounds of antibiotics and still has a pretty significant cellulitis of the left leg. I did review his notes from [facility] vascular. He has severe venous stasis in that leg and was recommended several years ago that he have saphenous ablation and stab phlebectomy. He should also cut down his alcohol and continue to wear support stockings on that left leg, which she is never done. He does not have palpable pulses in the left leg but this may be due to edema. We will be checking CTA she has Review of Systems All systems reviewed & are unremarkable except as noted in HPI and below PFSH All Active Problems (Updated 02/12/24 @ 20:01 by Eugenia Addison DO) Venous insufficiency of left lower extremity (Acute) Venous stasis dermatitis (Acute) Venous stasis (Acute) Atherosclerosis of arteries (Acute) Fatty liver disease, nonalcoholic (Acute) Coronary artery calcification seen on CAT scan (Acute) ETOH abuse (Chronic) Severe sepsis (Acute) UTI (urinary tract infection) (Acute) LUCILA (acute kidney injury) (Acute) Acute hypoxic respiratory failure (Acute) Hypoxemia (Acute) Venous insufficiency of both lower extremities (Acute) Alcohol dependence, daily use (Acute) Dehydration (Acute) Hypotension (Acute) Cellulitis of left leg (Acute) Lesion of liver (Acute) Bowel wall thickening (Acute) Colovesical fistula (Acute) Non-pressure ulcer of right lower extremity (Acute) Psoriasis (Chronic) 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 03/2007 Candidate for statin therapy due to risk of future cardiovascular event (Acute 07/28/15) 07/28/15 labwork: 10-year ASCVD risk = ~14% --> sent letter to pt recommending we discuss cholesterol medication at f/u Atrial septal aneurysm (Acute 03/31/07) Medical History Peripheral edema (07/04/14) Acute deep vein thrombosis (DVT) of femoral vein of right lower extremity (09/26/16) Calculus of kidney (07/14/10) Hypertension Hemochromatosis Surgical History Arthroplasty of knee (10/19/08) [place], [place] Family History Mother , Stroke at age 75. Stroke Father , Liver Disease at age 68. No problems noted. Sister No problems noted. Sister No problems noted. Brother , motor cycle accident at age 20. No problems noted. Brother No problems noted. Brother No problems noted. Brother No problems noted. Social History Smoking/Tobacco Use Status: Current every day Tobacco Type: cigarettes Smoking packs per day: 1 Smoking cigarettes per day: 20.0 Tobacco: How many years used: 52 Quit status: has quit before Second Hand Exposure: Yes (As a child) Smoking risk assessment performed?: Yes Alcohol Intake: current Alcohol Intake frequency: 0-2 drinks per day Alcohol type: wine Drug use: Never Substance use type: does not use Adopted: No Caregiver/Support person: No Foster care: No Household members: significant other and children Housing: house Number of Children: 1 number of grandchildren: 10 Communication Needs: None Education Level: vocational Do you need help understanding health information?: Often 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 Pets and animals: Yes (3 cats; chicken) Pets and animals: cat(s) and farm animals Sexually active: No Do you think of yourself as: straight/heterosexual Current gender identity: male What is your relationship status?: living with partner How often do you talk on the phone with friends or family?: twice per week How often do you get together with friends or relatives?: once per week Do you belong to any clubs or organized social groups?: no Panel score (0-1 are the most socially isolated patients): 2 What type of physical activity do you participate in: other Details: 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; takes care of pellets for stove Duration: 15-30 minutes/day Frequency: daily Sandie/Gnosticism: Synagogue Special sandie needs: No Seatbelt use: always Helmet use: No (N/A - no activities that require this) Drive intox or ride 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 ?Dentitio- poor LUNGS: normal respiration/normal chest excursion. ?Clear to auscultation bilaterally. ?No wheeze. ?HEART: Regular rate and rhythm. no murmurs EXTREMITY: No edema or cyanosis.? no leg pain, redness, swelling.? ABDOMEN: soft and non-tender to palpation.? Normal bowel sounds.? No hernias.? Const General: No well groomed, in distress, disheveled and ill appearing HENMT Other: hinophyma Resp Effort & Inspection: able to speak in complete sentences Auscultation: clear to auscultation bilaterally Cardio Rate: tachycardic Rhythm: regular rhythm GI Palpation: soft Auscultation: hypoactive bowel sounds Other: mild tenderness no peritonitis Extrem General: cyanosis, edema, dysmorphic, muscle atrophy and pedal edema Left lower extremity: edema Other: LLE severe erythema/edema/venous dermatitis. pulses are not palpable, but this could be do to edema. Results Last Vital Signs Temp 37.1 C 02/12/24 11:41 Pulse 94 H 02/12/24 12:09 Resp 22 02/12/24 12:00 BP 90/63 L 02/12/24 12:09 Pulse Ox 92 02/12/24 12:10 Labs 02/12/24 12:05 02/12/24 12:05 Labs: Laboratory Results - last 24 hr 02/12/24 02/12/24 12:05 12:48 WBC 6.13 RBC 4.42 Hgb 16.9 Hct 49.1 MCV 111 H MCH 38.2 H MCHC 34.4 RDW 12.5 Plt Count 191 MPV 9.1 Immature Gran % 0.5 Neutrophils % 67.1 Lymphocytes % 18.3 Monocytes % 10.4 Eosinophils % 2.9 Basophils % 0.8 Nucleated RBC % 0.0 Absolute Neutrophils 4.11 Absolute Lymphocytes 1.12 L Absolute Monocytes 0.64 Absolute Eosinophils 0.18 Absolute Basophils 0.05 ESR 26 H VBG Lactate 1.5 H Sodium 136 Potassium 3.5 Chloride 98 Carbon Dioxide 28.6 Anion Gap 9.4 BUN 25 H Creatinine 1.7 H Est GFR (CKD-EPI 2020) 42.83 Glucose 94 Calcium 9.9 Magnesium 2.0 Total Bilirubin 0.78 AST 34 ALT 29 Alkaline Phosphatase 96 C-Reactive Protein 8.97 H Total Protein 9.2 H Albumin 3.5 Procalcitonin < 0.1
[2024-02-12] MEDS: Omnipaque 350 MG/ML 500 ML BTL-Imaging package IJ (13:22)
[2024-02-12] MEDS: Normal Saline - Diluent 50 ML VIAL IJ (13:36)
[2024-02-12 14:04] LABS: Bilirubin Negative (Negative); Blood Moderate (Negative); Clarity Clear (Clear); Glucose Negative (Negative); Ketones Negative (Negative); Leukocyte Esterase Trace (Negative); Nitrite Negative (Negative); pH 6.5 (5-8)
[2024-02-12 14:12] LABS: Bacteria Rare HPF (Negative); C & S Indicated? Yes; Casts Negative LPF (Negative); Crystals Negative HPF (Negative); Epithelial Cells Rare HPF (Negative); Mucus Negative (Negative)
[2024-02-12] MEDS: Lactated Ringers 500 ML IV (14:27)
[2024-02-12 14:32] LABS: BE (Venous) 3 mmol/L (-2-3); HCO3 (Venous) 28 mmol/L (23-28); O2 Sat (Venous) 49 %; TCO2 (Venous) 25 mmol/L (24-29); pCO2 (Venous) 46 mmHg (41-51); pO2 (Venous) 27 mmHg
--- NOTE | 2024-02-12 14:45 | DI.US_ITS ---
Exam(s) US LOWER EXTREMITY VENOUS LT EXAM: US LOWER EXTREMITY VENOUS LT CLINICAL HISTORY: r/o DVT TECHNIQUE: Left lower extremity venous ultrasound performed using grayscale, color-flow, and spectra l Doppler analysis. COMPARISON: No exams were available for comparison FINDINGS: The left common femoral, femoral and popliteal veins demonstrate normal compressibility, augmentation , and color Doppler. The posterior tibial and peroneal veins are patent. The saphenofemoral junction is unremarkable. There is no evidence of a Cowan cyst. The soft tissues are unremarkable. IMPRESSION: No evidence of a left lower extremity DVT. DATA REPOSITORY:
--- NOTE | 2024-02-12 14:45 | RT.EKG_ITS ---
APPROVED REPORT Exam: Resting ECG Reason for Exam: hypotension Patient Location: E HR:79 bpm ECG Measurements Heart Rate 79 AXIS ND 193 P 68 QRSd 130 QRS -44 QT 394 T 43 QTc 451 Conclusion Sinus rhythm...normal P axis, V-rate 60- 99 Right bundle branch block...QRSd>120, terminal axis(90,270) Inferior infarct, old...Q >35mS, II III aVF Normal sinus rhythm right bundle branch block
[2024-02-12 14:52] LABS: TSH (W/Ref FT4) 3.11 uIU/mL (0.36-3.74)
--- NOTE | 2024-02-12 16:19 | W.EDPROG ---
Date of service: 02/12/24 Time of Service: 16:19 Medical Decision Making Care assumed from provider (Marcela WHEELCHAIR VAN OPERATOR FIRST RESPONDER) Please see their initial HPI, PE, and documentation. Discussed patient details and case and pending workup and disposition. Patient is hemodynamically stable, and alert and oriented. At the time of signout awaiting CTA,and US of extremity and disposition, most likely admission versus transfer. Venous ultrasound lower extremity negative for DVT per networking technician. Dr. Addison here inquiring about patient, requests admission and recommends Ceftriaxone and Flagyl for the cellulitis, orders placed. Hospitalist ludwig. Spoke with Merlyn WHEELCHAIR VAN OPERATOR FIRST RESPONDER with hospitalist team, discussed patient case in detail she agrees to accept patient for admission we will write admission orders. Patient is a DNR/DNI which was added to his chart. He also reports that he is a daily drinker usually has a glass of wine around 4 PM last drink was last night. He is alert and oriented, discussed plan of care with patient who verbalized understanding. This text was generated using Blockboard dictation system, please disregard any oddities of phrase or misspellings. Medical Records Medical records reviewed: Yes I reviewed the patient's medical records. Lab Data Lab results reviewed: Yes I reviewed the patient's lab results. Labs: 02/12/24 13:55 Urine - Reflex from Ua Urine Culture - Pending 02/12/24 12:48 Blood Blood Culture - Pending 02/12/24 12:05 Blood Blood Culture - Pending Laboratory Tests Range/Units 02/12/24 02/12/24 02/12/24 12:05 12:48 13:55 WBC (4.4-10.8) 10^3/uL 6.13 RBC (4.36-5.78) 10^6/uL 4.42 Hgb (13.5-17.5) g/dL 16.9 Hct (40.0-50.0) % 49.1 MCV (80-95) fL 111 H MCH (27.0-33.0) pg 38.2 H MCHC (32.0-36.0) % 34.4 RDW (11.8-14.1) % 12.5 Plt Count (130-400) 10^3/uL 191 MPV (8.0-11.0) fL 9.1 Immature Gran % % 0.5 Neutrophils % % 67.1 Lymphocytes % % 18.3 Monocytes % % 10.4 Eosinophils % % 2.9 Basophils % % 0.8 Nucleated RBC % (0.0-0.3) % 0.0 Absolute Neutrophils (1.2-6.7) 10^3/uL 4.11 Absolute Lymphocytes (1.2-3.4) 10^3/uL 1.12 L Absolute Monocytes (0.1-0.8) 10^3/uL 0.64 Absolute Eosinophils (0.0-0.7) 10^3/uL 0.18 Absolute Basophils (0.0-0.2) 10^3/uL 0.05 ESR (0-20) mm/hr 26 H VBG pH (7.31-7.41) 7.40 VBG pCO2 (41-51) mmHg 46 VBG pO2 mmHg 27 VBG HCO3 (23-28) mmol/L 28 VBG Total CO2 (24-29) mmol/L 25 VBG O2 Saturation % 49 VBG Base Excess (-2-3) mmol/L 3 VBG Lactate (0.6-1.4) mmol/L 1.5 H Sodium (136-145) mmol/L 136 Potassium (3.5-5.1) mmol/L 3.5 Chloride (98-107) mmol/L 98 Carbon Dioxide (21.0-32.0) mmol/L 28.6 Anion Gap (3-11) mmol/L 9.4 BUN (7-18) mg/dL 25 H Creatinine (0.70-1.30) mg/dL 1.7 H Est GFR (CKD-EPI 2020) (mL/min/1.73m2) 42.83 Glucose (74-106) mg/dL 94 Calcium (8.5-10.1) mg/dL 9.9 Magnesium (1.8-2.4) mg/dL 2.0 Total Bilirubin (0.2-1.0) mg/dL 0.78 AST (15-37) U/L 34 ALT (16-63) U/L 29 Alkaline Phosphatase (46-116) U/L 96 C-Reactive Protein (<or=0.5) mg/dL 8.97 H Total Protein (6.4-8.2) g/dL 9.2 H Albumin (3.4-5.0) g/dL 3.5 Procalcitonin ng/mL < 0.1 TSH (0.36-3.74) uIU/mL 3.11 Urine Color (Yellow) Yellow Urine Clarity (Clear) Clear Urine pH (5-8) 6.5 Ur Specific [place] (1.005-1.025) 1.010 Urine Protein (Neg-Trace) mg/dL Negative Urine Ketones (Negative) mg/dL Negative Urine Blood (Negative) Moderate H Urine Nitrite (Negative) Negative Urine Bilirubin (Negative) Negative Urine Urobilinogen (Up to 0.2) mg/dL 1.0 H Ur Leukocyte Esterase (Negative) Trace H Urine RBC (0-2) HPF 10-20 H Urine WBC (0-5) HPF 10-20 H Ur Epithelial Cells (Negative) HPF Rare Urine Crystals (Negative) HPF Negative Urine Bacteria (Negative) HPF Rare Urine Casts (Negative) LPF Negative Urine Mucus (Negative) Negative Ur Culture Indicated? Yes Urine Glucose (Negative) mg/dL Negative Range/Units 02/12/24 14:21 WBC (4.4-10.8) 10^3/uL RBC (4.36-5.78) 10^6/uL Hgb (13.5-17.5) g/dL Hct (40.0-50.0) % MCV (80-95) fL MCH (27.0-33.0) pg MCHC (32.0-36.0) % RDW (11.8-14.1) % Plt Count (130-400) 10^3/uL MPV (8.0-11.0) fL Immature Gran % % Neutrophils % % Lymphocytes % % Monocytes % % Eosinophils % % Basophils % % Nucleated RBC % (0.0-0.3) % Absolute Neutrophils (1.2-6.7) 10^3/uL Absolute Lymphocytes (1.2-3.4) 10^3/uL Absolute Monocytes (0.1-0.8) 10^3/uL Absolute Eosinophils (0.0-0.7) 10^3/uL Absolute Basophils (0.0-0.2) 10^3/uL ESR (0-20) mm/hr VBG pH (7.31-7.41) Cancelled VBG pCO2 (41-51) mmHg Cancelled VBG pO2 mmHg Cancelled VBG HCO3 (23-28) mmol/L Cancelled VBG Total CO2 (24-29) mmol/L Cancelled VBG O2 Saturation % Cancelled VBG Base Excess (-2-3) mmol/L Cancelled VBG Lactate (0.6-1.4) mmol/L Sodium (136-145) mmol/L Potassium (3.5-5.1) mmol/L Chloride (98-107) mmol/L Carbon Dioxide (21.0-32.0) mmol/L Anion Gap (3-11) mmol/L BUN (7-18) mg/dL Creatinine (0.70-1.30) mg/dL Est GFR (CKD-EPI 2020) (mL/min/1.73m2) Glucose (74-106) mg/dL Calcium (8.5-10.1) mg/dL Magnesium (1.8-2.4) mg/dL Total Bilirubin (0.2-1.0) mg/dL AST (15-37) U/L ALT (16-63) U/L Alkaline Phosphatase (46-116) U/L C-Reactive Protein (<or=0.5) mg/dL Total Protein (6.4-8.2) g/dL Albumin (3.4-5.0) g/dL Procalcitonin ng/mL TSH (0.36-3.74) uIU/mL Urine Color (Yellow) Urine Clarity (Clear) Urine pH (5-8) Ur Specific [place] (1.005-1.025) Urine Protein (Neg-Trace) mg/dL Urine Ketones (Negative) mg/dL Urine Blood (Negative) Urine Nitrite (Negative) Urine Bilirubin (Negative) Urine Urobilinogen (Up to 0.2) mg/dL Ur Leukocyte Esterase (Negative) Urine RBC (0-2) HPF Urine WBC (0-5) HPF Ur Epithelial Cells (Negative) HPF Urine Crystals (Negative) HPF Urine Bacteria (Negative) HPF Urine Casts (Negative) LPF Urine Mucus (Negative) Ur Culture Indicated? Urine Glucose (Negative) mg/dL Quality:SDOH Health Related Social Needs: No Data to Display Sign Out Sign Out Data: Sign Out Comment: 68 y/o male presented to ED today from surgical clinic for evaluation of painful erythematous LLE rash and hypotension. Labs all reassuring, only mild elevation in inflammatory markers. Awaiting CTA read. Pt on NC to maintain sats >93%. 1500 mL LR given for blood pressure support. US ordered to r/o DVT; may consider CTA chest to r/o PE Last updated by Marcela Krueger at 02/12/24 15:56 Discharge Plan Disposition Patient Disposition: Admit to [facility] Condition: Stable Discharge Details Clinical Impression: Cellulitis of left leg, Hypotension, Hypoxemia Admit Date/Time: 02/12/24 17:30 Admit Provider: Gigi Haq Attending Provider: Gigi Haq Primary Care Provider: Frank Funk ED Provider: Ericka Garcia Discharge Data Discharge Date/Time-TO BE ENTERED AT DEPARTURE: 02/12/24 17:55
[2024-02-12] MEDS: cefTRIAXone 2 GM/50 ML BAG IVPB (16:57)
[2024-02-12] MEDS: metroNIDAZOLE 500 MG/100 ML BAG 100 MG IVPB (16:58)
--- NOTE | 2024-02-12 17:20 | W.PM.HP.N ---
Date of service: 02/12/24 Time of Service: 17:31 Assessment and Plan Assessment and plan (1) Severe sepsis: Status: Acute Assessment and plan: Sepsis criteria met with presentation including heart rate at 116 and respiratory rate at 22 with probable source left lower extremity cellulitis versus UTI Severe sepsis criteria met as patient SBP was 82 and responding to IV crystalloid replacement Urinalysis showed leukocyte esterase Blood cultures and urine culture results are pending Treated with IV ceftriaxone and IV Flagyl?was on oral Bactrim at home (2) UTI (urinary tract infection): Status: Acute Assessment and plan: As above (3) Cellulitis of left leg: Status: Acute Assessment and plan: As above (4) Acute hypoxic respiratory failure: Status: Acute Assessment and plan: On 3 L of O2 via nasal cannula with sat in the 90s (5) LUCILA (acute kidney injury): Status: Acute Assessment and plan: Creatinine 1.7 from baseline 1.1 Continue IV fluid Labs in the morning (6) Colovesical fistula: Status: Acute Assessment and plan: Followed by surgery Surgical consultation As evidenced by CT completed on 02/09/2024 NPO at midnight oral prep as per Dr. 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 Haq History of Present Illness History of Present Illness Chief Complaint: left leg cellulitis, fatigue Narrative: This 68 years old male patient with a past medical history of recurrent DVT on Eliquis, chronic UTI's, chronic left lower extremity cellulitis, current tobacco abuse and daily EtOH intake of red wine resented to the ED at [facility] H status post surgical clinic encounter with Dr. Addison with complaints of tiredness x 3 days, left lower back pain and worsening left lower extremity cellulitis. In the clinic notes, Dr. Addison mentioned the possibility of colonoscopy in the morning for colovesical fistula as well as hypotension with systolic blood pressure around 82 mmHg and is recommending admission and treatment with IV Rocephin and Flagyl. On arrival to the ED the patient was found to be hypoxic with oxygen saturation in the 80s on room air with resolution upon the administration of 3l/min of oxygen via nasal cannula; the patient does not use oxygen at home. Also presented with elevated respiratory rate at 22, heart rate around 116, and initial blood pressure 82/63. Workup in the ED was significant for the absence of leukocytosis, lactic acid at 1.5, a BUN of 25 with a creatinine of 1.7 with baseline around 1.1, ESR of 26 and CRP of 8.97; urine showed trace leukocyte esterase. Imaging completed today were negative for any acute findings except for CTA runoff with the following impressions as per report: IMPRESSION: There is multilevel calcified plaque in the aortoiliac segments without hemodynamically significant stenosis. Also no significant stenosis in the SFA arteries in both thighs. There is three-vessel runoff in the right calf. There is venous contamination in the left calf vessels. This may be related to asymmetric inflammatory process in the left calf. This makes assessment of the arteries difficult to differentiate from the veins. The hospitalist was consulted and the patient was admitted to the medical surgical floor for evaluation and management of severe sepsis, LUCILA, UTI, and hypoxic respiratory failure. Surgical consult has been placed for the ongoing management of colovesical fistula. When met in the ED, the patient reported tiredness increasing over the past 3 days and ongoing left lower back pain with concerns for his left kidney, also reported hematuria 3 days ago but not since then. The patient denied dizziness, fever, cough, nausea, vomiting, diarrhea, hematochezia. The patient mention daily intake of half a glass to a glass of red wine daily and smoking about 10 cigarettes a day from age 14. The patient denied cardiac history, respiratory illness history. The patient mentioned that is a DNR/DNI and that he has advanced directives. Review of Systems All systems reviewed & are unremarkable except as noted in HPI and below PFSH All Active Problems (Updated 02/12/24 @ 18:53 by Honey Adams APRN) ETOH abuse (Chronic) Severe sepsis (Acute) UTI (urinary tract infection) (Acute) LUCILA (acute kidney injury) (Acute) Acute hypoxic respiratory failure (Acute) Hypoxemia (Acute) Venous insufficiency of both lower extremities (Acute) Alcohol dependence, daily use (Acute) Dehydration (Acute) Hypotension (Acute) Cellulitis of left leg (Acute) Lesion of liver (Acute) Bowel wall thickening (Acute) Colovesical fistula (Acute) Non-pressure ulcer of right lower extremity (Acute) Psoriasis (Chronic) 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 (Acute 12/31/16) Apixaban following DVT 09/22/16 R femoral Carotid occlusion, right (Acute 03/28/07) R carotid occluded per [facility] 03/2007 Candidate for statin therapy due to risk of future cardiovascular event (Acute 07/28/15) 07/28/15 labwork: 10-year ASCVD risk = ~14% --> sent letter to pt recommending we discuss cholesterol medication at f/u Atrial septal aneurysm (Acute 03/31/07) Medical History Peripheral edema (07/04/14) Acute deep vein thrombosis (DVT) of femoral vein of right lower extremity (09/26/16) Calculus of kidney (07/14/10) Hypertension Hemochromatosis Surgical History Arthroplasty of knee (10/19/08) [place], [place] Family History Mother , Stroke at age 75. Stroke Father , Liver Disease at age 68. No problems noted. Sister No problems noted. Sister No problems noted. Brother , motor cycle accident at age 20. No problems noted. Brother No problems noted. Brother No problems noted. Brother No problems noted. Social History Smoking/Tobacco Use Status: Current every day Tobacco Type: cigarettes Smoking packs per day: 1 Smoking cigarettes per day: 20.0 Tobacco: How many years used: 52 Quit status: has quit before Second Hand Exposure: Yes (As a child) Smoking risk assessment performed?: Yes Alcohol Intake: current Alcohol Intake frequency: 0-2 drinks per day Alcohol type: wine Drug use: Never Substance use type: does not use Adopted: No Caregiver/Support person: No Foster care: No Household members: significant other and children Housing: house Number of Children: 1 number of grandchildren: 10 Communication Needs: None Education Level: vocational Do you need help understanding health information?: Often 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 Pets and animals: Yes (3 cats; chicken) Pets and animals: cat(s) and farm animals Sexually active: No Do you think of yourself as: straight/heterosexual Current gender identity: male What is your relationship status?: living with partner How often do you talk on the phone with friends or family?: twice per week How often do you get together with friends or relatives?: once per week Do you belong to any clubs or organized social groups?: no Panel score (0-1 are the most socially isolated patients): 2 What type of physical activity do you participate in: other Details: 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; takes care of pellets for stove Duration: 15-30 minutes/day Frequency: daily Sandie/Mormonism: Baptist Special sandie needs: No Seatbelt use: always Helmet use: No (N/A - no activities that require this) Drive intox or ride w/intox lokie driver: No Working smoke detector in home: Yes Carbon monox detector in home: Yes Do you feel safe at home: Yes Do you feel safe in your relationship?: Yes Meds Allergies and Home Medications Allergies Allergy/AdvReac Type Severity Reaction Status Date / Time lisinopril AdvReac Intermediate COUGH Verified 02/12/24 11:48 terbinafine (From Lamisil) AdvReac Intermediate weight Verified 02/12/24 11:48 loss, loss of taste Home Medications ?Medication ?Instructions ?Recorded ?Confirmed ?Type aspirin 81 mg tablet,delayed 81 mg PO DAILY 07/26/20 02/12/24 History release (Adult Aspirin Regimen) apixaban 5 mg tablet (Eliquis) 5 mg PO BID #180 tabs 02/27/23 02/12/24 Rx hydrochlorothiazide 25 mg tablet 25 mg PO DAILY #90 tabs 03/17/23 02/12/24 Rx losartan 25 mg tablet 25 mg PO DAILY #90 tabs 08/29/23 02/12/24 Rx sulfamethoxazole 800 1 tab PO BID #23 tabs 02/09/24 02/12/24 Rx mg-trimethoprim 160 mg tablet (Bactrim DS) Exam Narrative Exam Narrative: Constitutional The patient is without acute distress Neuro:alert and oriented X4; non focal Resp: Speaks in full sentences, unlabored breathing, clear upper lung bilaterally- decreased bases- low air flow Cardio: regular rhythm, S1, S2, no murmur, bilateral radial and dorsalis pedis pulses are positive, palpable GI: Abdomen is not distended, soft and non tender, bowel sounds are present : Negative Costovertebral angle tenderness Back/spine/Pelvis: Left lower back tenderness, normal alignment Integumentary:LLE is red, swollen and warm- and small excoriated loclaized areas, w/o profuse drainage Extremities: strength 5/5 to bilateral lower and upper extremities Psych: RASS 0, congruent mood and normal affect. Results Labs 02/12/24 12:05 02/12/24 12:05 Labs: Laboratory Results - last 24 hr 02/12/24 02/12/24 02/12/24 12:05 12:48 13:55 WBC 6.13 RBC 4.42 Hgb 16.9 Hct 49.1 MCV 111 H MCH 38.2 H MCHC 34.4 RDW 12.5 Plt Count 191 MPV 9.1 Immature Gran % 0.5 Neutrophils % 67.1 Lymphocytes % 18.3 Monocytes % 10.4 Eosinophils % 2.9 Basophils % 0.8 Nucleated RBC % 0.0 Absolute Neutrophils 4.11 Absolute Lymphocytes 1.12 L Absolute Monocytes 0.64 Absolute Eosinophils 0.18 Absolute Basophils 0.05 ESR 26 H VBG pH 7.40 VBG pCO2 46 VBG pO2 27 VBG HCO3 28 VBG Total CO2 25 VBG O2 Saturation 49 VBG Base Excess 3 VBG Lactate 1.5 H Sodium 136 Potassium 3.5 Chloride 98 Carbon Dioxide 28.6 Anion Gap 9.4 BUN 25 H Creatinine 1.7 H Est GFR (CKD-EPI 2020) 42.83 Glucose 94 Calcium 9.9 Magnesium 2.0 Total Bilirubin 0.78 AST 34 ALT 29 Alkaline Phosphatase 96 C-Reactive Protein 8.97 H Total Protein 9.2 H Albumin 3.5 Procalcitonin < 0.1 TSH 3.11 Urine Color Yellow Urine Clarity Clear Urine pH 6.5 Ur Specific [place] 1.010 Urine Protein Negative Urine Ketones Negative Urine Blood Moderate H Urine Nitrite Negative Urine Bilirubin Negative Urine Urobilinogen 1.0 H Ur Leukocyte Esterase Trace H Urine RBC 10-20 H Urine WBC 10-20 H Ur Epithelial Cells Rare Urine Crystals Negative Urine Bacteria Rare Urine Casts Negative Urine Mucus Negative Ur Culture Indicated? Yes Urine Glucose Negative 02/12/24 14:21 WBC RBC Hgb Hct MCV MCH MCHC RDW Plt Count MPV Immature Gran % Neutrophils % Lymphocytes % Monocytes % Eosinophils % Basophils % Nucleated RBC % Absolute Neutrophils Absolute Lymphocytes Absolute Monocytes Absolute Eosinophils Absolute Basophils ESR VBG pH Cancelled VBG pCO2 Cancelled VBG pO2 Cancelled VBG HCO3 Cancelled VBG Total CO2 Cancelled VBG O2 Saturation Cancelled VBG Base Excess Cancelled VBG Lactate Sodium Potassium Chloride Carbon Dioxide Anion Gap BUN Creatinine Est GFR (CKD-EPI 2020) Glucose Calcium Magnesium Total Bilirubin AST ALT Alkaline Phosphatase C-Reactive Protein Total Protein Albumin Procalcitonin TSH Urine Color Urine Clarity Urine pH Ur Specific [place] Urine Protein Urine Ketones Urine Blood Urine Nitrite Urine Bilirubin Urine Urobilinogen Ur Leukocyte Esterase Urine RBC Urine WBC Ur Epithelial Cells Urine Crystals Urine Bacteria Urine Casts Urine Mucus Ur Culture Indicated? Urine Glucose Last Vital Signs Temp 37.1 C 02/12/24 11:41 Pulse 87 02/12/24 14:01 Resp 22 02/12/24 12:00 BP 110/70 02/12/24 14:04 Pulse Ox 95 02/12/24 14:03 PAWSS Have you Been Recently Intoxicated or Drunk Within the Last 30 days?: No Have you Ever Experienced Previous Episodes of Alcohol Withdrawal?: No Have you ever Experienced Withdrawal Seizures?: No Have you ever Experienced Delirium Tremens(DT)s?: No Have you ever undergone Alcohol Rehabilitation Treatment (i.e, inpt ot outpatient treatment programs)?: No Have you ever Experienced Blackouts?: No Have you ever Combined Alcohol with other Downers within the last 90 days?: No Have you ever Combined Alcohol with any other Substance of Abuse during the last 90 days?: No Positive Blood Alcohol level on Presentation? [PCS.BAL]: No Evidence of Increased Autonomic Activity (i.e. HR>120, tremor, sweating, agitation, nausea)?: No Result: 0 Time Spent Time spent with Patient: >75 minutes Time was spent: preparing to see the patient(eg.review tests), obtaining and/or reviewing separately otained hiistory, ordering medications,tests, procedures, referring, communicating with other health day care aide, indepentently interpreting results, counseling the patient and care coordination
[2024-02-12 17:33] LABS: INR 1.2 (0.9-1.1); PTT Activated 32.3 sec (23.6-32.8); Prothrombin Time 11.8 sec (9.1-11.1)
--- NOTE | 2024-02-12 18:14 | W.PC.ACHO ---
Registration Status: Primary Language: Preferred Language: ED Information & Data Chief Complaint Cellulitis 02/12/24 12:16 Triage Note patient was referred from 02/12/24 11:41 the surgeon office due to redness to the left leg and low blood pressure. Patient reported that he has extremely exhausted and having SOB periodically since the past 4 days Medical / Surgical History (Last Reviewed 02/10/24 @ 11:28 by BRIDGETT Bhardwaj) Peripheral edema (07/04/14) Acute deep vein thrombosis (DVT) of femoral vein of right lower extremity (09/26/16) Calculus of kidney (07/14/10) Hypertension Hemochromatosis (Last Reviewed 02/10/24 @ 11:28 by BRIDGETT Bhardwaj) Arthroplasty of knee (10/19/08) Most Recent Vital Signs Temperature 37.1 C 02/12/24 11:41 Pulse 86 02/12/24 17:46 Pulse 103 H 02/12/24 12:00 Respiratory Rate 22 02/12/24 12:00 Respiratory Effort Short of Breath 02/12/24 12:01 Blood Pressure 104/84 02/12/24 17:46 Blood Pressure Mean 83 02/12/24 14:04 Pulse Oximetry 95 02/12/24 17:50 Oxygen Delivery Method Nasal Cannula 02/12/24 13:58 Oxygen Flow Rate 2 02/12/24 13:58 Pain Level 5 02/12/24 11:41 Allergies lisinopril Adverse Reaction (Intermediate, Verified 02/12/24 11:48) COUGH 08/2015 terbinafine (From Lamisil) Adverse Reaction (Intermediate, Verified 02/12/24 11:48) weight loss, loss of taste Precautions Isolation Standard precaution 02/12/24 12:01 Active Medications Generic Name Dose Route Start Last Admin Trade Name Freq PRN Reason Stop Dose Admin Iohexol 500 ml 02/12/24 13:30 02/12/24 13:22 Omnipaque 350 Mg/Ml 500 Ml Btl-Imaging Package IJ 03/13/24 23:59 150 ml DIRECTED PALLAVI Administration Sodium Chloride 50 ml 02/12/24 13:45 02/12/24 13:36 Normal Saline - Diluent 50 Ml Vial IJ 100 ml .FOR DI USE PALLAVI Administration IV IV Catheter Type [Right Peripheral IV Forearm] IV Catheter Gauge [Right 18 Forearm] Diet Orders Category Date Time Status Heart Healthy Eating [DIET] Nutrition 02/12/24 Dinner Ordered npo [Nothing Per Oral] [DIET] Nutrition 02/13/24 Breakfast Ordered Diagnostics 02/12/24 02/12/24 02/12/24 Range/Units Unknown 17:14 14:21 WBC (4.4-10.8) 10^3/uL RBC (4.36-5.78) 10^6/uL Hgb (13.5-17.5) g/dL Hct (40.0-50.0) % MCV (80-95) fL MCH (27.0-33.0) pg MCHC (32.0-36.0) % RDW (11.8-14.1) % Plt Count (130-400) 10^3/uL MPV (8.0-11.0) fL Immature Gran % % Neutrophils % % Lymphocytes % % Monocytes % % Eosinophils % % Basophils % % Nucleated RBC % (0.0-0.3) % Absolute Neutrophils (1.2-6.7) 10^3/uL Absolute Lymphocytes (1.2-3.4) 10^3/uL Absolute Monocytes (0.1-0.8) 10^3/uL Absolute Eosinophils (0.0-0.7) 10^3/uL Absolute Basophils (0.0-0.2) 10^3/uL ESR (0-20) mm/hr PT 11.8 H (9.1-11.1) sec INR 1.2 H (0.9-1.1) APTT 32.3 (23.6-32.8) sec VBG pH Cancelled (7.31-7.41) VBG pCO2 Cancelled (41-51) mmHg VBG pO2 Cancelled mmHg VBG HCO3 Cancelled (23-28) mmol/L VBG Total CO2 Cancelled (24-29) mmol/L VBG O2 Saturation Cancelled % VBG Base Excess Cancelled (-2-3) mmol/L VBG Lactate (0.6-1.4) mmol/L Sodium (136-145) mmol/L Potassium (3.5-5.1) mmol/L Chloride (98-107) mmol/L Carbon Dioxide (21.0-32.0) mmol/L Anion Gap (3-11) mmol/L BUN (7-18) mg/dL Creatinine (0.70-1.30) mg/dL Est GFR (CKD-EPI 2020) (mL/min/1.73m2) Glucose (74-106) mg/dL Calcium (8.5-10.1) mg/dL Magnesium (1.8-2.4) mg/dL Total Bilirubin (0.2-1.0) mg/dL AST (15-37) U/L ALT (16-63) U/L Alkaline Phosphatase (46-116) U/L C-Reactive Protein (<or=0.5) mg/dL Total Protein (6.4-8.2) g/dL Albumin (3.4-5.0) g/dL Procalcitonin ng/mL TSH (0.36-3.74) uIU/mL Urine Color (Yellow) Urine Clarity (Clear) Urine pH (5-8) Ur Specific [place] (1.005-1.025) Urine Protein (Neg-Trace) mg/dL Urine Ketones (Negative) mg/dL Urine Blood (Negative) Urine Nitrite (Negative) Urine Bilirubin (Negative) Urine Urobilinogen (Up to 0.2) mg/dL Ur Leukocyte Esterase (Negative) Urine RBC (0-2) HPF Urine WBC (0-5) HPF Ur Epithelial Cells (Negative) HPF Urine Crystals (Negative) HPF Urine Bacteria (Negative) HPF Urine Casts (Negative) LPF Urine Mucus (Negative) Ur Culture Indicated? Urine Glucose (Negative) mg/dL Add-On Test Request Pending 02/12/24 02/12/24 02/12/24 Range/Units 13:55 12:48 12:15 WBC (4.4-10.8) 10^3/uL RBC (4.36-5.78) 10^6/uL Hgb (13.5-17.5) g/dL Hct (40.0-50.0) % MCV (80-95) fL MCH (27.0-33.0) pg MCHC (32.0-36.0) % RDW (11.8-14.1) % Plt Count (130-400) 10^3/uL MPV (8.0-11.0) fL Immature Gran % % Neutrophils % % Lymphocytes % % Monocytes % % Eosinophils % % Basophils % % Nucleated RBC % (0.0-0.3) % Absolute Neutrophils (1.2-6.7) 10^3/uL Absolute Lymphocytes (1.2-3.4) 10^3/uL Absolute Monocytes (0.1-0.8) 10^3/uL Absolute Eosinophils (0.0-0.7) 10^3/uL Absolute Basophils (0.0-0.2) 10^3/uL ESR (0-20) mm/hr PT (9.1-11.1) sec INR (0.9-1.1) APTT (23.6-32.8) sec VBG pH 7.40 (7.31-7.41) VBG pCO2 46 (41-51) mmHg VBG pO2 27 mmHg VBG HCO3 28 (23-28) mmol/L VBG Total CO2 25 (24-29) mmol/L VBG O2 Saturation 49 % VBG Base Excess 3 (-2-3) mmol/L VBG Lactate 1.5 H (0.6-1.4) mmol/L Sodium (136-145) mmol/L Potassium (3.5-5.1) mmol/L Chloride (98-107) mmol/L Carbon Dioxide (21.0-32.0) mmol/L Anion Gap (3-11) mmol/L BUN (7-18) mg/dL Creatinine (0.70-1.30) mg/dL Est GFR (CKD-EPI 2020) (mL/min/1.73m2) Glucose (74-106) mg/dL Calcium (8.5-10.1) mg/dL Magnesium (1.8-2.4) mg/dL Total Bilirubin (0.2-1.0) mg/dL AST (15-37) U/L ALT (16-63) U/L Alkaline Phosphatase (46-116) U/L C-Reactive Protein (<or=0.5) mg/dL Total Protein (6.4-8.2) g/dL Albumin (3.4-5.0) g/dL Procalcitonin ng/mL TSH 3.11 (0.36-3.74) uIU/mL Urine Color Yellow (Yellow) Urine Clarity Clear (Clear) Urine pH 6.5 (5-8) Ur Specific [place] 1.010 (1.005-1.025) Urine Protein Negative (Neg-Trace) mg/dL Urine Ketones Negative (Negative) mg/dL Urine Blood Moderate H (Negative) Urine Nitrite Negative (Negative) Urine Bilirubin Negative (Negative) Urine Urobilinogen 1.0 H (Up to 0.2) mg/dL Ur Leukocyte Esterase Trace H (Negative) Urine RBC 10-20 H (0-2) HPF Urine WBC 10-20 H (0-5) HPF Ur Epithelial Cells Rare (Negative) HPF Urine Crystals Negative (Negative) HPF Urine Bacteria Rare (Negative) HPF Urine Casts Negative (Negative) LPF Urine Mucus Negative (Negative) Ur Culture Indicated? Yes Urine Glucose Negative (Negative) mg/dL Add-On Test Request Pending 02/12/24 Range/Units 12:05 WBC 6.13 (4.4-10.8) 10^3/uL RBC 4.42 (4.36-5.78) 10^6/uL Hgb 16.9 (13.5-17.5) g/dL Hct 49.1 (40.0-50.0) % MCV 111 H (80-95) fL MCH 38.2 H (27.0-33.0) pg MCHC 34.4 (32.0-36.0) % RDW 12.5 (11.8-14.1) % Plt Count 191 (130-400) 10^3/uL MPV 9.1 (8.0-11.0) fL Immature Gran % 0.5 % Neutrophils % 67.1 % Lymphocytes % 18.3 % Monocytes % 10.4 % Eosinophils % 2.9 % Basophils % 0.8 % Nucleated RBC % 0.0 (0.0-0.3) % Absolute Neutrophils 4.11 (1.2-6.7) 10^3/uL Absolute Lymphocytes 1.12 L (1.2-3.4) 10^3/uL Absolute Monocytes 0.64 (0.1-0.8) 10^3/uL Absolute Eosinophils 0.18 (0.0-0.7) 10^3/uL Absolute Basophils 0.05 (0.0-0.2) 10^3/uL ESR 26 H (0-20) mm/hr PT (9.1-11.1) sec INR (0.9-1.1) APTT (23.6-32.8) sec VBG pH (7.31-7.41) VBG pCO2 (41-51) mmHg VBG pO2 mmHg VBG HCO3 (23-28) mmol/L VBG Total CO2 (24-29) mmol/L VBG O2 Saturation % VBG Base Excess (-2-3) mmol/L VBG Lactate (0.6-1.4) mmol/L Sodium 136 (136-145) mmol/L Potassium 3.5 (3.5-5.1) mmol/L Chloride 98 (98-107) mmol/L Carbon Dioxide 28.6 (21.0-32.0) mmol/L Anion Gap 9.4 (3-11) mmol/L BUN 25 H (7-18) mg/dL Creatinine 1.7 H (0.70-1.30) mg/dL Est GFR (CKD-EPI 2020) 42.83 (mL/min/1.73m2) Glucose 94 (74-106) mg/dL Calcium 9.9 (8.5-10.1) mg/dL Magnesium 2.0 (1.8-2.4) mg/dL Total Bilirubin 0.78 (0.2-1.0) mg/dL AST 34 (15-37) U/L ALT 29 (16-63) U/L Alkaline Phosphatase 96 (46-116) U/L C-Reactive Protein 8.97 H (<or=0.5) mg/dL Total Protein 9.2 H (6.4-8.2) g/dL Albumin 3.5 (3.4-5.0) g/dL Procalcitonin < 0.1 ng/mL TSH (0.36-3.74) uIU/mL Urine Color (Yellow) Urine Clarity (Clear) Urine pH (5-8) Ur Specific [place] (1.005-1.025) Urine Protein (Neg-Trace) mg/dL Urine Ketones (Negative) mg/dL Urine Blood (Negative) Urine Nitrite (Negative) Urine Bilirubin (Negative) Urine Urobilinogen (Up to 0.2) mg/dL Ur Leukocyte Esterase (Negative) Urine RBC (0-2) HPF Urine WBC (0-5) HPF Ur Epithelial Cells (Negative) HPF Urine Crystals (Negative) HPF Urine Bacteria (Negative) HPF Urine Casts (Negative) LPF Urine Mucus (Negative) Ur Culture Indicated? Urine Glucose (Negative) mg/dL Add-On Test Request 02/12/24 13:55 Urine Culture - Pending Urine - Reflex from Ua 02/12/24 12:48 Blood Culture - Pending Blood 02/12/24 12:05 Blood Culture - Pending Blood Intake and Output - 24 Hour Total 02/12/24 11:38 thru 02/12/24 16:42 Intake Total 1500 Output Total 400 Balance 1100 Weight 83.461 kg Intake: IV 1500 Output: Urine 400 Falls Risk Assessment History of Falls No History 02/12/24 11:51 Contributing Factors Unstable 02/12/24 11:51 Ambulatory Aids Uses ambulatory device 02/12/24 11:51 Tubes/Lines W/no contributing factors 02/12/24 11:51 Gait Evaluation No gait disturbance 02/12/24 11:51 Cognition No cognitive impairment 02/12/24 11:51 Fall Total Score 28 02/12/24 11:51 Level of Risk Moderate Risk 02/12/24 11:51 Problems (Last Reviewed 02/10/24 @ 11:28 by BRIDGETT Bhardwaj) Venous insufficiency of both lower extremities (Acute) Alcohol dependence, daily use (Acute) Dehydration (Acute) Hypotension (Acute) Cellulitis of left leg (Acute) Colovesical fistula (Acute) Non-pressure ulcer of right lower extremity (Acute) Psoriasis (Chronic) Recurrent acute deep vein thrombosis (DVT) of right lower extremity (Acute) Tobacco use disorder (Acute 07/28/15) Status post CVA (Acute 03/28/07) Hypothyroidism (Acute 07/04/14) Hepatic steatosis (Acute 07/29/14) Hemochromatosis (Acute) Essential hypertension (Acute 07/04/14) 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 Information / Comments: pt arrives to unit via stretcher, to room 209 Report received from: Latonya Nelson
--- NOTE | 2024-02-12 19:10 | DI.VRAD_ITS ---
PROCEDURE INFORMATION: Exam: CTA Abdominal Aorta and Bilateral Lower Extremities (Run-off) With Contrast Exam date and time: 02/12/2024 1:11 PM Age: 68 years old Clinical indication: Chronic LLE cellulitis TECHNIQUE: Imaging protocol: Computed tomographic angiography of the of the abdominal aorta, pelvis and bilateral lower extremities with contrast. 3D rendering (Not supervised by radiologist): MIP and/or 3D reconstructed images were created by the technologist. Contrast material: OMNIPAQUE 350; Contrast volume: 100 ml; Contrast route: INTRAVENOUS (IV); COMPARISON: CT RENAL COLIC WO 02/09/2024 1:45 PM FINDINGS: Aorta: The abdominal aorta is normal in caliber without aneurysm or dissection. Celiac trunk and mesenteric arteries: No occlusion or significant stenosis. Renal arteries: No occlusion or significant stenosis. Right iliac arteries: Scattered calcific plaque within the patent right iliac arteries. Right femoral/popliteal arteries: Patent right common femoral artery, right PFA, right SFA, and right popliteal artery. Right infrapopliteal arteries: Patent right tibioperoneal trunk, right peroneal artery, right [employer], and right LAUREL / DPA. Left iliac arteries: Scattered calcific plaque within the patent left iliac arteries. Left femoral/popliteal arteries: Patent left common femoral artery, left PFA, left SFA, and left popliteal artery. Left infrapopliteal arteries: Patent left tibioperoneal trunk, left peroneal artery, left [employer], and left LAUREL / DPA. Veins: Left knee / left tib-fib / left ankle region numerous subcutaneous venous collaterals. Lungs: On axial image 1, series 4, incompletely-imaged 6.5 mm right lower lobe nodule. Liver: No mass. Gallbladder and biliary ducts: Unremarkable. No calcified stones. No ductal dilation. Pancreas: Unremarkable. No mass. No ductal dilation. Spleen: Normal. No splenomegaly. Adrenal glands: Normal. No mass. Kidneys and ureters: No hydronephrosis. No calcified renal or ureteral stones. No perinephric stranding or perinephric fluid. Stomach and bowel: No bowel obstruction. Acute diverticulitis of the junction of the proximal / mid sigmoid colon. Associated 2.4 x 2.6 x 3.0 cm abscess, the inferior aspect of which is closely applied to the right posterior / superior urinary bladder with adjacent bladder wall thickening which indicate reactive edema. Air within the urinary bladder lumen - if patient has not had recent urinary bladder catheterization then colovesical fistula and/or emphysematous cystitis must be considered. Appendix: Normal appendix. Urinary bladder: Acute diverticulitis of the junction of the proximal / mid sigmoid colon. Associated 2.4 x 2.6 x 3.0 cm abscess, the inferior aspect of which is closely applied to the right posterior / superior urinary bladder with adjacent bladder wall thickening which indicate reactive edema. Air within the urinary bladder lumen - if patient has not had recent urinary bladder catheterization then colovesical fistula and/or emphysematous cystitis must be considered. Reproductive: Unremarkable as visualized. Intraperitoneal space: No free air. No significant fluid collection. Lymph nodes: No lymphadenopathy. Bones/joints: Spinal degenerative changes. Soft tissues: Fat-containing inguinal and umbilical hernias. IMPRESSION: 1. Acute diverticulitis of the junction of the proximal / mid sigmoid colon. Associated 2.4 x 2.6 x 3.0 cm abscess, the inferior aspect of which is closely applied to the right posterior / superior urinary bladder with adjacent bladder wall thickening which indicate reactive edema. Air within the urinary bladder lumen - if patient has not had recent urinary bladder catheterization then colovesical fistula and/or emphysematous cystitis must be considered. 2. Normal three-vessel runoff to each ankle / each foot region. No arterial occlusion or significant focal stenosis. 3. Left knee / left tib-fib / left ankle region numerous subcutaneous venous collaterals. 4. On axial image 1, series 4, incompletely-imaged 6.5 mm right lower lobe nodule. Dictated and Authenticated by: Khoi Deluna MD. Ordering:PAULINA Medrano MD
[2024-02-12] MEDS: Bisacodyl 5 MG TABEC 10 MG PO ×2 (19:20→21:48)
[2024-02-12] MEDS: Normal Saline Flush 10 ML SYR IVP ×2 (19:29)
[2024-02-12] MEDS: Lactated Ringers 1,000 ML 125 ML IV (19:29)
[2024-02-12 20:26] LABS: Lab Add On Test DONE
[2024-02-12] MEDS: PIPERACILLIN/TAZO 3.375 GM in Normal Saline 50 ML IVPB (20:31)
[2024-02-12 21:05] LABS: Ferritin 257 ng/mL (26-388); Folate 3.8 ng/mL (8.6-20.0); Vitamin B12 573 pg/mL (193-986)
[2024-02-12 21:10] LABS: GGT 56 U/L (15-85)
[2024-02-12 21:50] LABS: MRSA PCR Negative (Negative)
[2024-02-13] VITALS (27 sets, daily range): BP systolic 81–130; BP diastolic 45–88; PULSE 68–106; RESP 11–21; TEMP 36.5–38.9; O2SAT 89–97; BMI 27.9
--- NOTE | 2024-02-13 00:57 | NUR.NOTE ---
Pt drank over half of bowel prep medication up to midnight. Now NPO. Pt states that he cannot drink anymore prep. Stool is now dark archie in color and is liquid. Nursing Note:
[2024-02-13] MEDS: Acetaminophen 325 MG TAB 1000 MG PO (02:59)
[2024-02-13] MEDS: PIPERACILLIN/TAZO 3.375 GM in Normal Saline 50 ML IVPB ×3 (04:13→20:10)
[2024-02-13 07:04] LABS: Abs Immature Grans 0.02 10^3/uL (0.0-0.06); Absolute Basophil Count 0.03 10^3/uL (0.0-0.2); Absolute Eosinophil Count 0.07 10^3/uL (0.0-0.7); Absolute Lymphocyte Count 0.91 10^3/uL (1.2-3.4); Absolute Monocyte Count 0.58 10^3/uL (0.1-0.8); Absolute Neutrophil Count 3.59 10^3/uL (1.2-6.7); Basophils % 0.6 %; Eosinophils % 1.3 %; HCT 41.1 % (40.0-50.0); HGB 14.2 g/dL (13.5-17.5); Immature Grans % 0.4 %; Lymphocytes % 17.5 %; MCHC 34.5 % (32.0-36.0); MCV 110 fL (80-95); MPV 9.2 fL (8.0-11.0); Monocytes % 11.2 %; Platelet Count 169 10^3/uL (130-400); RBC 3.74 10^6/uL (4.36-5.78); RDW 12.5 % (11.8-14.1); RDW-SD 51.2 fL
[2024-02-13 07:28] LABS: ALT 19 U/L (16-63); AST 30 U/L (15-37); Albumin 2.8 g/dL (3.4-5.0); Alkaline Phosphatase 74 U/L (46-116); Anion Gap 12.6 mmol/L (3-11); BUN 21 mg/dL (7-18); Bilirubin, Total 0.61 mg/dL (0.2-1.0); CO2 24.4 mmol/L (21.0-32.0); CREATININE 1.2 mg/dL (0.70-1.30); Calcium 8.9 mg/dL (8.5-10.1); Chloride 103 mmol/L (98-107); Estimated GFR 65.06 (mL/min/1.73m2); Glucose 86 mg/dL (74-106); Potassium 3.4 mmol/L (3.5-5.1); Sodium 140 mmol/L (136-145); Total Protein 7.1 g/dL (6.4-8.2)
[2024-02-13 07:48] LABS: Ferritin 231 ng/mL (26-388); Folate 5.3 ng/mL (8.6-20.0); Vitamin B12 619 pg/mL (193-986)
[2024-02-13 07:53] LABS: GGT 46 U/L (15-85)
--- NOTE | 2024-02-13 08:33 | INITIAL_ITS ---
Date of service: 02/13/24 Time of Service: 08:34 Care Management Initial Assmt Initial Assessment Reason for Hospitalization: LUCILA Functional Status/Living Situation Patient Presentation: Parviz was awake and watching TV when CM met with him. He easily engages in conversation and shares with CM that he's has been fatigued since Friday and recently started using his cane. Parviz is planning on going to the OR sometime today for a colonoscopy. Parviz is a current smoker and is aware that nicotine replacement is available, if needed. 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) Instrumental Activities of Daily Living (ADLs): Independent Medications Medication Management: No Issues/Barriers identified Physical Functioning/Mobility Assistive Device: Cane Advance Directives Advance Directives: Do you have an Advance Directive: Y 10/23/21 15:15 AD On File at [facility]: Y 10/23/21 15:15 Date Asked 02/12/24 02/12/24 11:52 AD Date Reviewed 02/09/24 02/09/24 11:48 COLST On File at [facility] COLST Date Scanned Code Status Resuscitation Status DNR/DNI Insurance Coverage/Financial Issues Insurance: A[employer] Medicare Financial Issues: None identified Care Team Visit Care Team Role Provider Type Frank Funk, Primary Care Provider OSTEOPATHIC DOCTOR Eugenia Addison, DO Other Providers OSTEOPATHIC DOCTOR Singh Shabazz Other Providers OTHER Ericka Garcia NP Emergency Provider NURSE PRACTITIONER Gigi Haq MD Admit Provider [facility] STAFF PHYSICIAN Attending Provider Discharge Potential Discharge Needs: PCP F/U Appt and Surgical F/U Appt Anticipated Barriers to Discharge: Medical Status Patient/Family Education Needs: Review discharge instructions, discuss Ask Me Three Transportation: Private vehicle Plan: Parviz is being treated with IV ABX and requires additional medical workup and testing. Surgical is consulted and a colonoscopy is planned for today. Also, awaiting PT recommendations. Anticipate, Parviz will discharge home when medically ready with a plan to follow up with community providers. CM will follow. PFSH All Active Problems (Updated 02/13/24 @ 09:18 by Honey Adams APRN) Hypokalemia (Acute) Venous insufficiency of left lower extremity (Acute) Venous stasis dermatitis (Acute) Venous stasis (Acute) Atherosclerosis of arteries (Acute) Fatty liver disease, nonalcoholic (Acute) Coronary artery calcification seen on CAT scan (Acute) ETOH abuse (Chronic) Severe sepsis (Acute) UTI (urinary tract infection) (Acute) LUCILA (acute kidney injury) (Acute) Acute hypoxic respiratory failure (Acute) Hypoxemia (Acute) Venous insufficiency of both lower extremities (Acute) Alcohol dependence, daily use (Acute) Dehydration (Acute) Hypotension (Acute) Cellulitis of left leg (Acute) Lesion of liver (Acute) Bowel wall thickening (Acute) Colovesical fistula (Acute) Non-pressure ulcer of right lower extremity (Acute) Psoriasis (Chronic) 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 (Acute 12/31/16) Apixaban following DVT 09/22/16 R femoral Carotid occlusion, right (Acute 03/28/07) R carotid occluded per hospital [place] 03/2007 Candidate for statin therapy due to risk of future cardiovascular event (Acute 07/28/15) 07/28/15 labwork: 10-year ASCVD risk = ~14% --> sent letter to pt recommending we discuss cholesterol medication at f/u Atrial septal aneurysm (Acute 03/31/07) Medical History (Updated 02/13/24 @ 09:18 by Honey Adams APRN) Peripheral edema (07/04/14) Acute deep vein thrombosis (DVT) of femoral vein of right lower extremity (09/26/16) Calculus of kidney (07/14/10) Hypertension Hemochromatosis Surgical History (Updated 02/12/24 @ 20:28 by Eugenia Addison DO) Arthroplasty of knee (10/19/08) [place], [place] Patient had a knee arthroscopy not an arthroplasty Family History Mother , Stroke at age 75. Stroke Father , Liver Disease at age 68. No problems noted. Sister No problems noted. Sister No problems noted. Brother , motor cycle accident at age 20. No problems noted. Brother No problems noted. Brother No problems noted. Brother No problems noted. Social History Smoking/Tobacco Use Status: Current every day Tobacco Type: cigarettes Smoking packs per day: 1 Smoking cigarettes per day: 20.0 Tobacco: How many years used: 52 Quit status: has quit before Second Hand Exposure: Yes (As a child) Smoking risk assessment performed?: Yes Alcohol Intake: current Alcohol Intake frequency: 0-2 drinks per day Alcohol type: wine Drug use: Never Substance use type: does not use Adopted: No Caregiver/Support person: No Foster care: No Household members: significant other and children Housing: house Number of Children: 1 number of grandchildren: 10 Communication Needs: None Education Level: vocational Do you need help understanding health information?: Often 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 Pets and animals: Yes (3 cats; chicken) Pets and animals: cat(s) and farm animals Sexually active: No Do you think of yourself as: straight/heterosexual Current gender identity: male What is your relationship status?: living with partner How often do you talk on the phone with friends or family?: twice per week How often do you get together with friends or relatives?: once per week Do you belong to any clubs or organized social groups?: no Panel score (0-1 are the most socially isolated patients): 2 What type of physical activity do you participate in: other Details: 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; takes care of pellets for stove Duration: 15-30 minutes/day Frequency: daily Sandie/Taoist: Congregational Special sandie needs: No Seatbelt use: always Helmet use: No (N/A - no activities that require this) Drive intox 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: No Working smoke detector in home: Yes Carbon monox detector in home: Yes Do you feel safe at home: Yes Do you feel safe in your relationship?: Yes SDOH(Care Management) Screening Will the Patient Participate in the Screening?: Yes Do you worry about having a steady place to live?: no Problems where you live: no known problems In the past 12 months, have you had to go without electric, gas, oil or water in your home?: no Have you or anyone in your house had to go without enough food to eat?: no Has lack of transportation kept you from medical appointments or from doing things needed for daily living?: no Has anyone in your support network made you feel unsafe for any reason?: no
[2024-02-13] MEDS: Normal Saline Flush 10 ML SYR IVP ×3 (08:36→20:12)
--- NOTE | 2024-02-13 09:14 | PGE_ITS ---
Date of Service Date of service: 02/13/24 Time of Service: 09:14 Assessment and Plan Assessment and plan (1) Severe sepsis: Status: Acute Assessment and plan: On admission sepsis criteria were met with presentation including heart rate at 116 and respiratory rate at 22 with probable source left lower extremity cellulitis versus UTI -Severe sepsis criteria met as patient SBP was 82 and responding to IV crystalloid replacement Urinalysis showed leukocyte esterase Blood cultures and urine culture no significant growth in 24 hours Initially treated with IV ceftriaxone and IV Flagyl?was on oral Bactrim at home. This therapy was stopped Patient started piperacillin tazobactam (2) Cellulitis of left leg: Status: Acute Assessment and plan: As per point 1 Wound consult ordered As per surgical note:UNNA boot for LLE once infection is starting to clear. Wound care plan written for hospital care. -Surgery also ordered Silvadene cream This might be due to decreased perfusion to the left lower extremity, EtOH use and daily smoking. CRP in a.m. (3) UTI (urinary tract infection): Status: Acute Assessment and plan: Resolved positive UA pointing to contaminant as per urine culture No further need of antibiotic for UTI treatment As above (4) Acute hypoxic respiratory failure: Status: Acute Assessment and plan: Resolved now on room air Initially on 3 L of O2 via nasal cannula with sat in the 90s (5) LUCILA (acute kidney injury): Status: Acute Assessment and plan: Initially creatinine at 1.7 from baseline 1.1 Now creatinine 1.2 We will stop IV fluid initiated on 02/12/2024?encourage oral intake of fluids Labs in the morning (6) Colovesical fistula: Status: Acute Assessment and plan: Followed by surgery Surgical consultation ongoing As evidenced by CT completed on 02/09/2024. Today Dr. Singleton, radiologist, made an addendum to the note from the CTA runoff completed on 02/12/2024 stating that the patient had diverticulitis with abscess. Dr. Addison was notified via with the [employer], and will look into it. Resume regular diet Colonoscopy completed by Dr. 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 TEDS (8) Tobacco use disorder: Status: Acute Assessment and plan: As needed nicotine patch ordered Now nicotine patch scheduled (9) ETOH abuse: Status: Chronic Assessment and plan: CIWA every 4 while awake-no significant scoring Last drink on 02/11/2024?after glass of red wine With naltrexone initiated by Dr. Addison (10) Hypokalemia: Status: Acute Assessment and plan: K3.4 Supplementation ordered BMP in the morning Discussed with Dr. Haq Exam Narrative Exam Narrative: Constitutional The patient is without acute distress Neuro:alert and oriented X4; non focal Resp: , clear upper lung bilaterally Cardio: regular rhythm, S1, S2,bilateral radial and dorsalis pedis pulses are positive, palpable GI: Abdomen is not distended, soft and non tender, bowel sounds are present : Negative Costovertebral angle tenderness Back/spine/Pelvis: Left lower hip posterior area tenderness to palpation, normal alignment Integumentary:LLE is red, swollen and warm- and small excoriated loclaized areas, w/o profuse drainage- improving Extremities: strength 5/5 to bilateral lower and upper extremities Psych: RASS 0, congruent mood and normal affect. Objective Last Vital Signs Temp 36.9 C 02/13/24 07:49 Pulse 74 02/13/24 07:49 Resp 16 02/13/24 07:49 BP 107/64 02/13/24 07:49 Pulse Ox 97 02/13/24 08:25 Laboratory Results - last 24 hr 02/12/24 02/12/24 02/12/24 12:05 12:15 12:48 WBC 6.13 RBC 4.42 Hgb 16.9 Hct 49.1 MCV 111 H MCH 38.2 H MCHC 34.4 RDW 12.5 Plt Count 191 MPV 9.1 Immature Gran % 0.5 Neutrophils % 67.1 Lymphocytes % 18.3 Monocytes % 10.4 Eosinophils % 2.9 Basophils % 0.8 Nucleated RBC % 0.0 Absolute Neutrophils 4.11 Absolute Lymphocytes 1.12 L Absolute Monocytes 0.64 Absolute Eosinophils 0.18 Absolute Basophils 0.05 ESR 26 H PT INR APTT VBG pH 7.40 VBG pCO2 46 VBG pO2 27 VBG HCO3 28 VBG Total CO2 25 VBG O2 Saturation 49 VBG Base Excess 3 VBG Lactate 1.5 H Sodium 136 Potassium 3.5 Chloride 98 Carbon Dioxide 28.6 Anion Gap 9.4 BUN 25 H Creatinine 1.7 H Est GFR (CKD-EPI 2020) 42.83 Glucose 94 Calcium 9.9 Magnesium 2.0 Ferritin 257 Total Bilirubin 0.78 GGT 56 AST 34 ALT 29 Alkaline Phosphatase 96 C-Reactive Protein 8.97 H Total Protein 9.2 H Albumin 3.5 Vitamin B12 573 Folate 3.8 L Procalcitonin < 0.1 TSH 3.11 Urine Color Urine Clarity Urine pH Ur Specific Mellott Urine Protein Urine Ketones Urine Blood Urine Nitrite Urine Bilirubin Urine Urobilinogen Ur Leukocyte Esterase Urine RBC Urine WBC Ur Epithelial Cells Urine Crystals Urine Bacteria Urine Casts Urine Mucus Ur Culture Indicated? Urine Glucose MRSA (TEM-PCR) Add-On Test Request TNP 02/12/24 02/12/24 02/12/24 13:55 14:21 17:14 WBC RBC Hgb Hct MCV MCH MCHC RDW Plt Count MPV Immature Gran % Neutrophils % Lymphocytes % Monocytes % Eosinophils % Basophils % Nucleated RBC % Absolute Neutrophils Absolute Lymphocytes Absolute Monocytes Absolute Eosinophils Absolute Basophils ESR PT 11.8 H INR 1.2 H APTT 32.3 VBG pH Cancelled VBG pCO2 Cancelled VBG pO2 Cancelled VBG HCO3 Cancelled VBG Total CO2 Cancelled VBG O2 Saturation Cancelled VBG Base Excess Cancelled VBG Lactate Sodium Potassium Chloride Carbon Dioxide Anion Gap BUN Creatinine Est GFR (CKD-EPI 2020) Glucose Calcium Magnesium Ferritin Total Bilirubin GGT AST ALT Alkaline Phosphatase C-Reactive Protein Total Protein Albumin Vitamin B12 Folate Procalcitonin TSH Urine Color Yellow Urine Clarity Clear Urine pH 6.5 Ur Specific Mellott 1.010 Urine Protein Negative Urine Ketones Negative Urine Blood Moderate H Urine Nitrite Negative Urine Bilirubin Negative Urine Urobilinogen 1.0 H Ur Leukocyte Esterase Trace H Urine RBC 10-20 H Urine WBC 10-20 H Ur Epithelial Cells Rare Urine Crystals Negative Urine Bacteria Rare Urine Casts Negative Urine Mucus Negative Ur Culture Indicated? Yes Urine Glucose Negative MRSA (TEM-PCR) Add-On Test Request 10/02/12/24 02/13/24 20:20 Unknown 06:34 WBC 5.20 RBC 3.74 L Hgb 14.2 D Hct 41.1 MCV 110 H MCH 38.0 H MCHC 34.5 RDW 12.5 Plt Count 169 MPV 9.2 Immature Gran % 0.4 Neutrophils % 69.0 Lymphocytes % 17.5 Monocytes % 11.2 Eosinophils % 1.3 Basophils % 0.6 Nucleated RBC % 0.0 Absolute Neutrophils 3.59 Absolute Lymphocytes 0.91 L Absolute Monocytes 0.58 Absolute Eosinophils 0.07 Absolute Basophils 0.03 ESR PT INR APTT VBG pH VBG pCO2 VBG pO2 VBG HCO3 VBG Total CO2 VBG O2 Saturation VBG Base Excess VBG Lactate Sodium 140 Potassium 3.4 L Chloride 103 Carbon Dioxide 24.4 Anion Gap 12.6 H BUN 21 H Creatinine 1.2 Est GFR (CKD-EPI 2020) 65.06 Glucose 86 Calcium 8.9 Magnesium Ferritin 231 Total Bilirubin 0.61 GGT 46 AST 30 ALT 19 Alkaline Phosphatase 74 C-Reactive Protein Total Protein 7.1 Albumin 2.8 L Vitamin B12 619 Folate 5.3 L Procalcitonin TSH Urine Color Urine Clarity Urine pH Ur Specific Mellott Urine Protein Urine Ketones Urine Blood Urine Nitrite Urine Bilirubin Urine Urobilinogen Ur Leukocyte Esterase Urine RBC Urine WBC Ur Epithelial Cells Urine Crystals Urine Bacteria Urine Casts Urine Mucus Ur Culture Indicated? Urine Glucose MRSA (TEM-PCR) Negative Add-On Test Request DONE PAW Have you Been Recently Intoxicated or Drunk Within the Last 30 days?: No Have you Ever Experienced Previous Episodes of Alcohol Withdrawal?: No Have you ever Experienced Withdrawal Seizures?: No Have you ever Experienced Delirium Tremens(DT)s?: No Have you ever undergone Alcohol Rehabilitation Treatment (i.e, inpt ot outpatient treatment programs)?: No Have you ever Experienced Blackouts?: No Have you ever Combined Alcohol with other Downers within the last 90 days?: No Have you ever Combined Alcohol with any other Substance of Abuse during the last 90 days?: No Positive Blood Alcohol level on Presentation? [PCS.BAL]: No Evidence of Increased Autonomic Activity (i.e. HR>120, tremor, sweating, agitation, nausea)?: No Result: 0 Time Spent with Patient Time Spent with Patient: >50 minutes Time was spent: preparing to see the patient(eg.review tests), obtaining and/or reviewing separately otained hiistory, ordering medications,tests, procedures, referring, communicating with other health geriatric care manager, indepentently interpreting results, counseling the patient and care coordination
[2024-02-13] MEDS: POTASSIUM CHLORIDE 20 MEQ/100 ML BAG 50 MEQ IV_INF (10:05)
[2024-02-13] MEDS: Lactated Ringers 1,000 ML 125 ML IV (10:06)
--- NOTE | 2024-02-13 12:37 | W.PM.PROGNOT ---
Date of Service Date of service: 02/13/24 Time of Service: 12:38 Assessment and Plan Assessment and plan (1) Cellulitis of left leg: Status: Acute (2) Colovesical fistula: Status: Acute Assessment and plan: I did review his CT scan today. From the CT scan, it is pretty obvious that he has a colovesical fistula at this point. He has never had a colonoscopy before so doing a colonoscopy but would probably be advisable to rule out that there is no tumor involved in this area and is strictly from diverticular disease. He still partially anticoagulated from Eliquis. His condition has stabilized/improved after resuscitation with fluids. His kidney function is significantly improved since we stopped the Bactrim and hydrated him. This diverticulitis/fistula looks like it has been on- going for the past 6 weeks and has been incompletely treated, since he is only been on Bactrim and Keflex-because he was only going to urgent cares and telling them about the cellulitis and the UTI and they did not have a clear picture of the etiology of the UTI. He also smokes a pack a day cigarettes for the past 55 years and is dependent on alcohol. He has lost a lot of muscle mass and protein and is nutritionally replete. (albumin is 2.9) I think a prolonged course strong antibiotics and nutritional support would significantly help improve his condition for surgery. Although I do not know if he is going to be able to completely abstain from alcohol and cigarettes. But as he stands right now, he is not a great candidate for surgery and at risk for complications for healing. I would not attempt complete resection at this time and would recommend diversion and in antibiotics. However even with diversion he would continue to have urinary infections/problems. plan Ce today cont IV abx- zosyn. MRSA screen- neg PICC for 2 wks IV abx- invanz for daily dosing. pt can come in daily and have done in infusion UNNA boot for LLE once infection is starting to clear. Wound care plan written for hospital care. etoh counseling consider using naltrexone for abstinence. 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: Acute (8) Recurrent acute deep vein thrombosis (DVT) of right lower extremity: Status: Acute (9) Venous insufficiency of left lower extremity: Status: Acute (10) Venous stasis dermatitis: Status: Acute (11) Atherosclerosis of arteries: Status: Acute (12) Venous insufficiency of both lower extremities: Status: Acute (13) Coronary artery calcification seen on CAT scan: Status: Acute (14) Essential hypertension: Status: Acute (15) Alcohol dependence, daily use: Status: Acute (16) ETOH abuse: Status: Chronic (17) Tobacco use disorder: Status: Acute (18) Psoriasis: Status: Chronic Subjective Subjective Interval history since last seen: Pt is doing better. no headaches. No CP or SOB. no productive cough. Is able to get up/stand, and walk a few steps. Minimal abdominal pain. He still having extensive diarrhea with good control. He is still having pneumaturia. There is no open sores on either leg. He still has extensive cellulitis on his left lower extremity which has not made much improvement in the past 24 hours. There is some maceration to the anterior wilks, but there is not an open wound. THere is also extensive excoriation to the LLE. risk for CE: Informed consent is obtained for the procedural (explained in simple layman's terms that the pt. and/or family could understand) explaining risks vs benefits and alternatives to the procedure and consequences if we do not do the procedure and need/rational for the procedure. Risks include but are not limited to: bleeding, infection, perforation of colon. This would necessitate emergency surgery to repair the damage w/ possible ostomy; and other associated complications w/ the required surgery. Also complications of anesthesia including aspiration, OR/CVA/. There is a change of dislodging the fistula and causing an tear in the bladder or the colon resulting in need for emergent surgery and colostomy. Pt is also partial anti-coagulated on elliquis and is at risk for bleeding. Exam Narrative Exam Narrative: PHYSICAL EXAM GENERAL APPEARANCE: Alert, healthy appearance, oriented, x 3,? in no acute distress HYDRATION: Well hydrated HEAD, EYES, EARS, NECK, THROAT: Head is normocephalic, pupils equal, round, reactive to light and accommodation, ocular movement intact, sclera clear and no jaundice. ?edentualous. rhinophyma LUNGS: normal respiration/normal chest excursion. ?Clear to auscultation bilaterally. ?No wheeze. ?HEART: Regular rate and rhythm. no murmurs EXTREMITY: b/l venous stasis and dermatitis. signif venous insuff of LLE. edema/erythema of LLE - not signif improved since yesterday. maceration and drainage over L ant. wilks ABDOMEN: soft and non-tender to palpation.? Normal bowel sounds.? Objective Last Vital Signs Temp 36.5 C 02/13/24 11:31 Pulse 74 02/13/24 11:31 Resp 15 02/13/24 11:31 BP 126/79 02/13/24 11:31 Pulse Ox 94 02/13/24 11:31 Laboratory Results - last 24 hr 02/12/24 02/12/24 02/12/24 12:05 12:15 12:48 WBC RBC Hgb Hct MCV MCH MCHC RDW Plt Count MPV Immature Gran % Neutrophils % Lymphocytes % Monocytes % Eosinophils % Basophils % Nucleated RBC % Absolute Neutrophils Absolute Lymphocytes Absolute Monocytes Absolute Eosinophils Absolute Basophils PT INR APTT VBG pH 7.40 VBG pCO2 46 VBG pO2 27 VBG HCO3 28 VBG Total CO2 25 VBG O2 Saturation 49 VBG Base Excess 3 VBG Lactate 1.5 H Sodium 136 Potassium 3.5 Chloride 98 Carbon Dioxide 28.6 Anion Gap 9.4 BUN 25 H Creatinine 1.7 H Est GFR (CKD-EPI 2020) 42.83 Glucose 94 Calcium 9.9 Magnesium 2.0 Ferritin 257 Total Bilirubin 0.78 GGT 56 AST 34 ALT 29 Alkaline Phosphatase 96 C-Reactive Protein 8.97 H Total Protein 9.2 H Albumin 3.5 Vitamin B12 573 Folate 3.8 L Procalcitonin < 0.1 TSH 3.11 Urine Color Urine Clarity Urine pH Ur Specific [place] Urine Protein Urine Ketones Urine Blood Urine Nitrite Urine Bilirubin Urine Urobilinogen Ur Leukocyte Esterase Urine RBC Urine WBC Ur Epithelial Cells Urine Crystals Urine Bacteria Urine Casts Urine Mucus Ur Culture Indicated? Urine Glucose MRSA (TEM-PCR) Add-On Test Request TNP 02/12/24 02/12/24 02/12/24 13:55 14:21 17:14 WBC RBC Hgb Hct MCV MCH MCHC RDW Plt Count MPV Immature Gran % Neutrophils % Lymphocytes % Monocytes % Eosinophils % Basophils % Nucleated RBC % Absolute Neutrophils Absolute Lymphocytes Absolute Monocytes Absolute Eosinophils Absolute Basophils PT 11.8 H INR 1.2 H APTT 32.3 VBG pH Cancelled VBG pCO2 Cancelled VBG pO2 Cancelled VBG HCO3 Cancelled VBG Total CO2 Cancelled VBG O2 Saturation Cancelled VBG Base Excess Cancelled VBG Lactate Sodium Potassium Chloride Carbon Dioxide Anion Gap BUN Creatinine Est GFR (CKD-EPI 2020) Glucose Calcium Magnesium Ferritin Total Bilirubin GGT AST ALT Alkaline Phosphatase C-Reactive Protein Total Protein Albumin Vitamin B12 Folate Procalcitonin TSH Urine Color Yellow Urine Clarity Clear Urine pH 6.5 Ur Specific [place] 1.010 Urine Protein Negative Urine Ketones Negative Urine Blood Moderate H Urine Nitrite Negative Urine Bilirubin Negative Urine Urobilinogen 1.0 H Ur Leukocyte Esterase Trace H Urine RBC 10-20 H Urine WBC 10-20 H Ur Epithelial Cells Rare Urine Crystals Negative Urine Bacteria Rare Urine Casts Negative Urine Mucus Negative Ur Culture Indicated? Yes Urine Glucose Negative MRSA (TEM-PCR) Add-On Test Request 02/12/24 02/12/24 02/13/24 20:20 Unknown 06:34 WBC 5.20 RBC 3.74 L Hgb 14.2 D Hct 41.1 MCV 110 H MCH 38.0 H MCHC 34.5 RDW 12.5 Plt Count 169 MPV 9.2 Immature Gran % 0.4 Neutrophils % 69.0 Lymphocytes % 17.5 Monocytes % 11.2 Eosinophils % 1.3 Basophils % 0.6 Nucleated RBC % 0.0 Absolute Neutrophils 3.59 Absolute Lymphocytes 0.91 L Absolute Monocytes 0.58 Absolute Eosinophils 0.07 Absolute Basophils 0.03 PT INR APTT VBG pH VBG pCO2 VBG pO2 VBG HCO3 VBG Total CO2 VBG O2 Saturation VBG Base Excess VBG Lactate Sodium 140 Potassium 3.4 L Chloride 103 Carbon Dioxide 24.4 Anion Gap 12.6 H BUN 21 H Creatinine 1.2 Est GFR (CKD-EPI 2020) 65.06 Glucose 86 Calcium 8.9 Magnesium Ferritin 231 Total Bilirubin 0.61 GGT 46 AST 30 ALT 19 Alkaline Phosphatase 74 C-Reactive Protein Total Protein 7.1 Albumin 2.8 L Vitamin B12 619 Folate 5.3 L Procalcitonin TSH Urine Color Urine Clarity Urine pH Ur Specific [place] Urine Protein Urine Ketones Urine Blood Urine Nitrite Urine Bilirubin Urine Urobilinogen Ur Leukocyte Esterase Urine RBC Urine WBC Ur Epithelial Cells Urine Crystals Urine Bacteria Urine Casts Urine Mucus Ur Culture Indicated? Urine Glucose MRSA (TEM-PCR) Negative Add-On Test Request DONE [facility] Have you Been Recently Intoxicated or Drunk Within the Last 30 days?: No Have you Ever Experienced Previous Episodes of Alcohol Withdrawal?: No Have you ever Experienced Withdrawal Seizures?: No Have you ever Experienced Delirium Tremens(DT)s?: No Have you ever undergone Alcohol Rehabilitation Treatment (i.e, inpt ot outpatient treatment programs)?: No Have you ever Experienced Blackouts?: No Have you ever Combined Alcohol with other Downers within the last 90 days?: No Have you ever Combined Alcohol with any other Substance of Abuse during the last 90 days?: No Positive Blood Alcohol level on Presentation? [PCS.BAL]: No Evidence of Increased Autonomic Activity (i.e. HR>120, tremor, sweating, agitation, nausea)?: No Result: 0 Time Spent with Patient Time Spent with Patient: >50 minutes Time was spent: preparing to see the patient(eg.review tests), obtaining and/or reviewing separately otained hiistory, ordering medications,tests, procedures, referring, communicating with other health hearing healthcare practitioner, indepentently interpreting results, counseling the patient, care coordination and other
--- NOTE | 2024-02-13 12:40 | ANES.PREOP_ITS ---
General Info Date of Service Date Performed: 02/13/24 Height: 5 ft 8 in Weight: 83.461 kg Body Mass Index (BMI): 27.9 Surgical Procedure: Operation Date: 02/13/24 12:20 Proposed Procedure Side Surgeon jose Addison, DO Meds Allergies and Home Medications Allergies Allergy/AdvReac Type Severity Reaction Status Date / Time lisinopril AdvReac Intermediate COUGH Verified 02/12/24 11:48 terbinafine (From Lamisil) AdvReac Intermediate weight Verified 02/12/24 11:48 loss, loss of taste Home Medication ?Medication ?Instructions ?Recorded aspirin 81 mg tablet,delayed 81 mg PO DAILY 07/26/20 release (Adult Aspirin Regimen) apixaban 5 mg tablet (Eliquis) 5 mg PO BID #180 tabs 02/27/23 hydrochlorothiazide 25 mg tablet 25 mg PO DAILY #90 tabs 03/17/23 losartan 25 mg tablet 25 mg PO DAILY #90 tabs 08/29/23 sulfamethoxazole 800 1 tab PO BID #23 tabs 02/09/24 mg-trimethoprim 160 mg tablet (Bactrim DS) Current Visit Medications: Current Medications Generic Name Dose Route Start Last Admin Trade Name Freq PRN Reason Stop Dose Admin Acetaminophen 1,000 mg 02/13/24 10:37 Acetaminophen 500 Mg Tab PO Q8H PRN PRN Albuterol/Ipratropium 3 ml 02/12/24 18:13 Albuterol/Ipratropium 3 Ml Upd Vial UPD Q6H PRN PRN Hydrochlorothiazide 25 mg 02/13/24 08:30 Hydrochlorothiazide 25 Mg Tab PO DAILY PALLAVI Ringer's Solution 1,000 mls @ 125 mls/hr 02/12/24 17:59 02/13/24 12:34 IV 0 mls/hr INFUSION PALLAVI Infusion Piperacillin Sod/Tazobactam 50 mls @ 12.5 mls/hr 02/12/24 20:00 02/13/24 12:12 Sod 3.375 gm/ Sodium Chloride IVPB 12.5 mls/hr Q8H PALLAVI Administration IV Miscellaneous Supplies 1 each 02/12/24 18:13 Iv Access IV DIRECTED PALLAVI Losartan Potassium 25 mg 02/13/24 08:30 Losartan 25 Mg Tab PO DAILY PALLAVI Nicotine 14 mg 02/12/24 18:13 Nicotine 14 Mg/24 Hr Patch TD DAILY PRN PRN Sodium Chloride 0 ml 02/12/24 18:13 02/13/24 12:14 Normal Saline Flush 10 Ml Syr IVP 10 ml PRN PRN Administration Sodium Chloride 0 ml 02/12/24 20:00 02/13/24 08:36 Normal Saline Flush 10 Ml Syr IVP 10 ml BID PALLAVI Administration Sodium Chloride 0 ml 02/12/24 18:13 Normal Saline 10 Ml Vial IJ DIRECTED PRN [place]/Glycerin 1 each 02/12/24 18:52 [place]/Glycerin 100 Each Box [place] PRN PRN PFSH Active Problems Active Problems: Problem Status Onset Code Hypokalemia Acute E87.6 Venous insufficiency of left lower extremity Acute I87.2 Venous stasis dermatitis Acute I87.2 Venous stasis Acute I87.8 Atherosclerosis of arteries Acute I70.90 Fatty liver disease, nonalcoholic Acute K76.0 Coronary artery calcification seen on CAT scan Acute I25.10 ETOH abuse Chronic F10.10 Severe sepsis Acute A41.9, R65.20 UTI (urinary tract infection) Acute N39.0 LUCILA (acute kidney injury) Acute N17.9 Acute hypoxic respiratory failure Acute J96.01 Hypoxemia Acute R09.02 Venous insufficiency of both lower extremities Acute I87.2 Alcohol dependence, daily use Acute F10.20 Dehydration Acute E86.0 Hypotension Acute I95.9 Cellulitis of left leg Acute L03.116 Lesion of liver Acute K76.9 Bowel wall thickening Acute K63.9 Colovesical fistula Acute N32.1 Non-pressure ulcer of right lower extremity Acute L97.919 Psoriasis Chronic L40.9 Recurrent acute deep vein thrombosis (DVT) of right lower extremity Acute I82.401 Tobacco use disorder Acute 07/28/15 F17.200 Status post CVA Acute 03/28/07 Z86.73 Hypothyroidism Acute 07/04/14 E03.9 Hepatic steatosis Acute 07/29/14 K76.0 Hemochromatosis Acute E83.119 Essential hypertension Acute 07/04/14 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 Acute 12/31/16 Z92.29 Carotid occlusion, right Acute 03/28/07 I65.21 Candidate for statin therapy due to risk of future cardiovascular event Acute 07/28/15 Z91.89 Atrial septal aneurysm Acute 03/31/07 I25.3 Medical History Medical History (Updated 02/13/24 @ 09:18 by Honey Adams APRN) Peripheral edema (07/04/14) Acute deep vein thrombosis (DVT) of femoral vein of right lower extremity (09/26/16) Calculus of kidney (07/14/10) Hypertension Hemochromatosis Surgical History Surgical History (Updated 02/12/24 @ 20:28 by Eugenia Addison DO) Arthroplasty of knee (10/19/08) [place], [place] Patient had a knee arthroscopy not an arthroplasty Tobacco Smoking/Tobacco Use Status: Current every day Tobacco Type: cigarettes Smoking packs per day: 1 Smoking cigarettes per day: 20.0 Passive smoking exposure: Yes Second hand exposure: Yes (As a child) Alcohol Alcohol Intake: current Alcohol intake frequency: 0-2 drinks per day Alcohol type: wine Substance Use Substance use: Never Substance use type: does not use Vital Signs and Lab Results Vital Signs Most Recent Vital Signs in EMR: Most Recent Vital Signs Temp Pulse Resp BP Pulse Ox 36.5 C 74 15 126/79 94 02/13/24 11:31 02/13/24 11:31 02/13/24 11:31 02/13/24 11:31 02/13/24 11:31 Lab Results 02/13/24 06:34 02/13/24 06:34 Blood Type / Crossmatch: 2 No Data to Display Complete Blood Count: 2 White Blood Count 5.20 10^3/uL (4.4-10.8) 02/13/24 06:34 Red Blood Count 3.74 10^6/uL (4.36-5.78) L 02/13/24 06:34 Hemoglobin 14.2 g/dL (13.5-17.5) 02/13/24 06:34 Hematocrit 41.1 % (40.0-50.0) 02/13/24 06:34 Platelet Count 169 10^3/uL (130-400) 02/13/24 06:34 Venous Blood Lactate 1.5 mmol/L (0.6-1.4) H 02/12/24 12:48 Complete Metabolic Panel: 2 Sodium 140 mmol/L (136-145) 02/13/24 06:34 Potassium 3.4 mmol/L (3.5-5.1) L 02/13/24 06:34 Chloride 103 mmol/L (98-107) 02/13/24 06:34 Carbon Dioxide 24.4 mmol/L (21.0-32.0) 02/13/24 06:34 BUN 21 mg/dL (7-18) H 02/13/24 06:34 Creatinine 1.2 mg/dL (0.70-1.30) 02/13/24 06:34 Est GFR (CKD-EPI 2020) 65.06 (mL/min/1.73m2) 02/13/24 06:34 Magnesium 2.0 mg/dL (1.8-2.4) 02/12/24 12:05 Calcium 8.9 mg/dL (8.5-10.1) 02/13/24 06:34 Albumin 2.8 g/dL (3.4-5.0) L 02/13/24 06:34 Glucose 86 mg/dL (74-106) 02/13/24 06:34 C-Reactive Protein 8.97 mg/dL (<or=0.5) H 02/12/24 12:05 Liver Function Panel: 2 Alanine Aminotransferase (ALT/SGPT) 19 U/L (16-63) 02/13/24 06: 34 Aspartate Amino Transf (AST/SGOT) 30 U/L (15-37) 02/13/24 06:34 Gamma Glutamyl Transpeptidase 46 U/L (15-85) 02/13/24 06:34 Coagulation Panel: 2 INR International Normalized Ratio 1.2 (0.9-1.1) H 02/12/24 17 :14 Prothrombin Time 11.8 sec (9.1-11.1) H 02/12/24 17:14 Activated Partial Thromboplast Time 32.3 sec (23.6-32.8) 17:14 Cardiac Panel: 2 No Data to Display Arterial Blood Gas: 2 No Data to Display Venous Blood Gas: 2 Venous Blood pH 7.40 (7.31-7.41) 02/12/24 12:48 Venous Blood Partial Pressure O2 27 mmHg 02/12/24 12:48 Venous Blood Partial Pressure CO2 46 mmHg (41-51) 02/12/24 12:4 8 Venous Blood Oxygen Saturation 49 % 02/12/24 12:48 Venous Blood HCO3 28 mmol/L (23-28) 02/12/24 12:48 Venous Blood Base Excess 3 mmol/L (-2-3) 02/12/24 12:48 Venous Blood Total Carbon Dioxide 25 mmol/L (24-29) 02/12/24 12 :48 Pancreas Panel: 2 No Data to Display Thyroid Panel: 2 Thyroid Stimulating Hormone (TSH) 3.11 uIU/mL (0.36-3.74) 02/11 12:48 Infectious Disease: 2 No Data to Display Blood Cultures: 2 No Data to Display Toxicology Panel: 2 No Data to Display Anesthesia Assessment and Plan Anesthesia History Personal History: No History of Anesthesia Complications Family History: No Family History of Anesthesia Complications Exercise Tolerance Exercise Tolerance: Metabolic Equivalents>4 Pertinent Negatives Pertinent Negatives: No Symptoms of GERD Cardiac & Pulmonary Exam Cardiac Exam: Normal S1/S2 Heart Sounds Pulmonary Exam: Clear Bilateral Breath Sounds Implantable Cardiac Device Does patient have a Pacemaker or an ICD?: No Airway Exam Known Difficult Airway: No Mallampati Class: 2 Mouth Opening: Normal (> 3cm) Thyromental Distance: Greater than 3 cm Neck Range of Motion: Full ROM Neck Circumference: Normal Teeth Condition: Edentulous ASA Classification ASA Score: ASA 3 Emergency Case?: No NPO Status NPO Status: NPO Clears >2 hours, Solids >8 hours Anesthesia Plan Resuscitation Status: Full Code Anesthesia Technique: General Anesthesia Airway Planned: Natural Airway Monitors Used: Standard Monitors
--- NOTE | 2024-02-13 13:16 | BOWEL_PTH ---
PATIENT: Parviz Elise LOC: U#:[id number] AGE/SX: 68/M ROOM: 209 RE02/12/[address]: Gigi Haq MD : 1955 BED: A DIS: 02/14/2024 SPEC #: [id number] RECD: 02/13/24 15:25 STATUS: LATHA REQ #: [id number] ABHAY: 02/13/24 13:[address]: Gigi Haq DEPT: Surgical Specimen RECD BY: Liz Kim ENTERED: 02/13/24 15:26 SP TYPE: Bowel OTHR DR: DO Cyn Gutierrez Laura M InPatient Dan Wyand Tissues: 1 - BIOPSY BOWEL 2 - BIOPSY BOWEL Procedures: GROSS AND MICRO LEVEL 4 Comments: [id number]
--- NOTE | 2024-02-13 13:26 | IN_ITS ---
PT Notes Visit Reasons: LE cellulitis,SevereSepsis,UTI,LUCILA,Hypoxixrespfail Physical Therapy Inpatient Initial Evaluation Date: 02/13/2024 Referring Doctor: honey Adams NP PT Orders: PT CONSULT: Safety Consult for D/C Precautions: Fall. Standard. Activity as tolerated. Patient Profile/Admitting Diagnosis: Parviz is a 68-year-old male admitted to the ED on for with complaints of left lower extremity pain redness and swelling as well as chills fatigue and generalized weakness. Patient is admitted f for or management of severe sepsis, cellulitis of left leg, acute hypoxic respiratory failure, LUCILA, colovesicular fistula, and recurrent acute DVT. 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 Phlebotomy (remove 500 mL blood) weekly until Hgb <12-13 or ferritin <100, then recheck every 3 months once at goal (see 08/18/14 [facility] [place] 08/2015 chk Ferritin monthly Essential hypertension (Acute 07/04/14) [id number] x 20 minutes, 60209 x 13 minutes X: retirement anticoagulant use (Acute 12/31/16) Apixaban following DVT 09/22/16 R femoral Carotid occlusion, right (Acute 03/28/07) R carotid occluded per [facility] 03/2007 Candidate for statin therapy due to risk of future cardiovascular event (Acute 07/28/15) 07/28/15 labwork: 10-year ASCVD risk = ~14% --> sent letter to pt recommending we discuss cholesterol medication at f/u Atrial septal aneurysm (Acute 03/31/07) Medical History Peripheral edema (07/04/14) Acute deep vein thrombosis (DVT) of femoral vein of right lower extremity (09/26/16) Calculus of kidney (07/14/10) Hypertension Hemochromatosis Surgical History Arthroplasty of knee (10/19/08) [place], [place] Social History/Home Situation: Lives with SO in a priavte home with 1-2 steps to enter with one rail. Independent with all aspects of ADLs and ADLs prior to admission. Equipment Owned/DME: [facility] Subjective: Eager to participate in PT. Awaiting colonoscopy procedure. Objective: General Observation: Resting in bed. Iv through left UE. Mental Status: Alert and oriented as to person, place, time, and purpose. Able to pay attention, focus, and respond appropriately. Pain: 1-2 /10 in L leg and foot that did not increase with mobility performance Vital Signs: [] ROM: Right Upper Extremity: Shoulder Flexion WFL. Shoulder abduction WFL. Elbow flexion WFL. Wrist flexion WFL. Functional opening and closing of hand WFL. Left Upper Extremity: Shoulder Flexion WFL. Shoulder abduction WFL. Elbow flexion WFL. Wrist flexion WFL. Functional opening and closing of hand WFL. Right Lower Extremity: Hip flexion WFL. Hip abduction WFL. Knee flexion WFL. Ankle dorsiflexion WFL. Ankle plantarflexion WFL. Left Lower Extremity: Hip flexion WFL. Hip abduction WFL. Knee flexion WFL. Ankle dorsiflexion WFL. Ankle plantarflexion WFL. Strength: Right Upper Extremity: Shoulder flexors 4-/5. Shoulder abductors 4-/5. Elbow flexors 4-/5. Elbow extensors 4-/5. Drawer Hardware Worker strong. Left Upper Extremity: Shoulder flexors 4-/5. Shoulder abductors 4-/5. Elbow flexors 4-/5. Elbow extensors 4-/5. Drawer Hardware Worker strong. Right Lower Extremity: Hip flexors 4-/5. Hip abductors 4-/5. Knee flexors 4-/5. Knee extensors 4-/5. Ankle dorsiflexors 4-/5. Ankle plantarflexors 4-/5. Left Lower Extremity: Hip flexors 4-/5. Hip abductors 4-/5. Knee flexors 4-/5. Knee extensors 4-/5. Ankle dorsiflexors 4-/5. Ankle plantarflexors 4-/5. Bed Mobility/Transfers: Rolling independent Supine to sit independent Sit to supine independent Sit to stand independent Stand to sit independent Bed to reclining chair independent Reclining chair to bed independent Gait: Supervised patient with level surface ambulation covering a distance of 150 feet +150 feet using no assistive devices with standby assist only and minimal cueing for directions only. No report of increased pain in B legs. No SOB. No LOB. Stairs: Supervised patient with negotiation 6 x 4 inch steps for 6 inch steps home step over step pattern during ascending and step to gait pattern during descent with no report of increased pain in B LE. Balance: Static Sitting: Normal Dynamic Sitting: Normal Static Standing: Good Dynamic Standing: Good 4-Stage Balance test: Feet together 10 seconds Semi-tandem 10 seconds Full tandem 10 seconds One-legged stance <10 seconds Special Tests: Mobility Limitations Standardized Measure [facility] AM-PAC 6 clicks Basic Mobility Inpatient Short Form: Raw Score: 24 CMS Score: 0% deficit Informed Consent/Education: Patient was instructed in purpose of PT consult and plan of care. Agreeable to proceed with established PT POC to achieve personal goals. Assessment: Patient presents with clinical signs and symptoms consistent with current/admitting diagnoses that have resulted to mobility limitations as demonstrated by the following impairment level findings: 1. Impaired activity tolerance Impairments are contributing to the following functional limitations:ce 4. Increased completion time for mobility ADL performance Patient is assessed as a 43870 low complexity based on the following: History: 68-year-old male with past medical history as indicated above Examination: Demonstrable impairment in strength, balance, and mobility level with underlying impairments and functional limitations as exhibited above Presentation: Stable Decision Makin low complexity Goals: Goals X1 week 1. Independent gait on level surface with use of no assistive device for at least 300 feet without report of pain nor dyspnea 2. Independent stair negotiation while holding onto 5 rails for at least 2 steps without report of pain nor dyspnea Plan of Care/Treatment Plan: 1-2x/day, 7 days/week x 1 week. See patient 1-2 more times today to assess readiness for upgrade to modified independent without AD for all mobility ADL performance in the hallway. DISCHARGE RECOMMENDATIONS: [X] Home with no service. Home when medically cleared by hospitalist. No assistive device needed. No PT services needed. [] Home with services [specify] [] Home with outpatient PT [] [] SNF for continued rehabilitation [] [] Communications Electrician Supervisor Care [] [] SNF versus LTC based on ability to participate and progress [] TREATMENT CODE/TIME: 64642 x 20 minutes for 1 unit, 97225 x 13 minutes for 1 unit space (8:48?9:21). Thank you for the opportunity to participate in the care of this patient. Lauren Brunner PT, DPT, CLT [facility] [place], [place]
--- NOTE | 2024-02-13 13:40 | W.ANESPOSTOP ---
Postoperative Evaluation Date, Time and Location Date Performed: 02/13/24 Time Performed: 13:40 Patient Location: PACU Vital Signs Most Recent Imported Vital Signs: Most Recent Vital Signs Temp Pulse Resp BP Pulse Ox 37.3 C 72 18 89/45 L 97 02/13/24 13:34 02/13/24 13:34 02/13/24 13:34 02/13/24 13:34 02/13/24 13:34 Pain Score Most Recent Pain Score: Most Recent Pain Score Pain Level [Left Calf] 4 02/12/24 18:39 Pain Level 0 02/13/24 11:31 Assessment Mental Status: Awake (Alert & Oriented to Patient Baseline) Airway and Respiratory Function: Patent airway with normal (patient baseline) respiratory exam Cardiovascular Function: Hemodynamically Stable Hydration Status: Adequately Hydrated Nausea & Vomiting: No Nausea or Vomiting Pain: Pt. Denies Any Pain Peripheral Nerve Block: Patient did not receive a nerve block
[2024-02-13] MEDS: Protein Nutritional Supplement 16 GM 1 OUNCE PACKET PO ×2 (14:27→20:11)
--- NOTE | 2024-02-13 16:01 | PTTR_ITS ---
PT Notes Visit Reasons: LE cellulitis,SevereSepsis,UTI,LUCILA,Hypoxixrespfail Date: 02/13/24 PRECAUTIONS: Standard, fall precaution SUBJECTIVE: Pt sitting at the EOB eating a snack. pt just got back from colonoscopy exam, pt agrees to participate after finishing his snack. OBJECTIVE: ?Right antecubital IV line ? PAIN: Denies VITALS: monitored by nursing Therapeutic Activities 16558: Direct one-on-one instruction in dynamic activi ties to improve functional performance. ?? BED MOBILITY/TRANSFERS? Rolling L/R: Independent Supine-sit: ?Independent ? Sit-supine: ?Independent? Sit-stand: ?Independent? Stand-sit: ?Independent? Bed-Chair:? Independent ? Chair-bed: Independent Provided skilled cues and instruction on performance and technique throughout. Gait Training 11018: Direct one-on-one instruction and skilled instruction in: Employing an assistive device Modified weight-bearing status Movement sequencing Turning and movement with proper form Provided verbal cues for equipment management and technique Provided instruction in gait pattern Patient education regarding pacing and breathing techniques to maximize activity tolerance? GAIT? Assistive Device: ?No AD ? Weight bearing: FWB Assist: ?supervision ? Distance:??600'? Deviation: ?unremarkable ? ASSESSMENT:?Pt allowed to rest after gait training to recover from this afternoons events. pt situated in bed post session, setup A for toney keller. PLAN: Continue with balance training, global strengthening and general conditioning for improved safety, mobility and activity tolerance until pt is ready for DC. TREATMENT CODE/TIME: [id number] 15mins (3:45-4:00pm)
--- NOTE | 2024-02-13 16:40 | CHAPLAIN ---
Parviz was resting in bed when I visited. He is NPO waiting to have a colonoscopy later today, and is hungry. 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 [place]. He usually is very active he said and is frustrated that he hasn't been able to work in his garden and help close it up for the winter. He was able to help with some henna, he said. I explained my role and offered support.
--- NOTE | 2024-02-13 17:15 | DI.RAD_ITS ---
Exam(s) XR PORTABLE CHEST AP EXAM: XR PORTABLE CHEST AP CLINICAL HISTORY: Confirm PICC line placement TECHNIQUE: 2D digital imaging was performed of the chest. One image was obtained. An AP view was ob tained. COMPARISON: CR XR CHEST 2V PA LATERAL from 02/12/2024 FINDINGS: There has been interval placement of a left PICC line. The tip is in good position at the junction of the superior vena cava and right atrium. MEDIASTINUM: Normal. HEART: Normal. PULMONARY VASCULATURE: Normal. LUNGS: No focal consolidating infiltrates are seen. PLEURAL SPACE: No pleural effusion or pneumothorax. BONE:Within normal limits for the patient's age. OTHER FINDINGS:Normal. IMPRESSION: The tip of the PICC line is in good position at the cavoatrial junction. Findings were discussed wit h the primary care team on the date of the examination at 5:50 p.m. on 02/13/2024. DATA REPOSITORY: RADIATION DOSE DELIVERED:
[2024-02-13] MEDS: Apixaban 5 MG TAB PO (20:09)
[2024-02-13] MEDS: Thiamine 100 MG TAB PO (20:10)
[2024-02-14 02:49] VITALS: BP 126/83; PULSE 75; RESP 14; TEMP 37.1; O2SAT 94
[2024-02-14] MEDS: PIPERACILLIN/TAZO 3.375 GM in Normal Saline 50 ML IVPB (03:57)
[2024-02-14 07:01] LABS: ALT 23 U/L (16-63); AST 33 U/L (15-37); Albumin 2.5 g/dL (3.4-5.0); Alkaline Phosphatase 66 U/L (46-116); Anion Gap 9.6 mmol/L (3-11); BUN 21 mg/dL (7-18); Bilirubin, Total 0.47 mg/dL (0.2-1.0); C-Reactive Protein 4.38 mg/dL (<or=0.5); CO2 26.4 mmol/L (21.0-32.0); Calcium 8.6 mg/dL (8.5-10.1); Chloride 107 mmol/L (98-107); Estimated GFR 80.97 (mL/min/1.73m2); Glucose 81 mg/dL (74-106); Potassium 3.6 mmol/L (3.5-5.1); Sodium 143 mmol/L (136-145); Total Protein 7.1 g/dL (6.4-8.2)
[2024-02-14 07:24] VITALS: BP 121/71; PULSE 77; RESP 18; TEMP 37.2; O2SAT 91
[2024-02-14] MEDS: Naltrexone 50 MG TAB PO (08:20)
[2024-02-14] MEDS: Protein Nutritional Supplement 16 GM 1 OUNCE PACKET PO (08:20)
[2024-02-14] MEDS: Lactobacillus Acidophilus CAP 1 CAP PO (08:21)
[2024-02-14] MEDS: Apixaban 5 MG TAB PO (08:21)
[2024-02-14] MEDS: Thiamine 100 MG TAB PO (08:21)
[2024-02-14] MEDS: Folic Acid 1 MG TAB PO (08:21)
[2024-02-14] MEDS: Normal Saline Flush 10 ML SYR IVP (08:22)
[2024-02-14 08:43] VITALS: O2SAT 93
--- NOTE | 2024-02-14 09:21 | W.PM.PROGNOT ---
Date of Service Date of service: 02/14/24 Time of Service: 11:00 Assessment and Plan Assessment and plan (1) Colovesical fistula: Status: Acute Assessment and plan: 68-year-old man has a colovesicular fistula clinically as well as on CT scan. This is secondary to complicated diverticular disease. This is a pretty common and classic scenario. He has been on oral antibiotics in the outpatient setting - which is adequate for UTI, but inadequate coverage of the underlying culprit which is complicated diverticular disease. He is hemodynamically stable and has a benign abdominal exam and has really no subjective symptoms of concern. He does not have any obstructive symptoms. His colonoscopy yesterday did not find any other problems beyond what we already know. #1. I think he can be discharged home today. We really have source control of the colon infection (it's exiting thru his bladder). I think he needs to be on broad-spectrum antibiotic therapy through a PICC line that covers anaerobes for the next 6-8 weeks. #2. He should have a laparoscopic takedown of colovesicular fistula/LAR 6-8 weeks from now once the inflammation has off. I had a long and detailed discussion with him at the bedside about the following: # During the 6-8 weeks he needs to abstain completely from smoking in preparation for his surgery. This will also help his leg heal. He then needs to maintain not smoking in the few weeks that follow during the acute healing phase of his necessary colon surgery. # He needs to cut back/minimize his daily alcohol intake over the next 6-8 weeks. It is okay for him to have 1 glass of wine a day, but no more than that. I then want him to completely stop alcohol about 7-10 days before his procedure. # He needs to have protein milkshakes 3 times a day all the way up to and through his surgical procedure. Because of his hemochromatosis, he needs to have protein milkshakes that do AND not have iron or vitamin C in them. He would probably benefit from a ehs engineer consult. # He really needs to stay anticoagulated because of his DVT history and his aspirin 81 MUST be continued throughout the preop and perioperative and postop procedure. He should be hospitalized and bridged with heparin a day or 2 before his surgery. He should then restart his anticoagulation fairly aggressively after his surgery. # I explained to him that he would have an indwelling urinary catheter for 10 days after his surgical procedure. # He is very high?risk for perioperative surgical complications because of his underlying comorbidities and social habits. Surgery signing off at this time. He can follow-up with us in the office for planning purposes. Subjective Subjective Interval history since last seen: Patient endorses feeling quite a bit better. He denies abdominal pain. In fact, he says he really has not had any abdominal pain all along. He is hoping to be discharged home today. He admits to smoking about 10-15 cigarettes a day. He says he has quit for more than a year on a couple of different occasions and it is fairly easy to do. He says he drinks about 2 glasses of wine on any given day. That is all he drinks. He has hemochromatosis - he blames this is part of the reason that he is somewhat under nourished. He says he has to be very careful with what he eats. He needs to avoid red meat. His complaint is urinary frequency and urgency and seeing flecks of stool, as well as air, in his urine. He is on blood thinners chronically because of DVT history Exam Narrative Exam Narrative: Gen: Non-toxic, comfortable and interactive. He does not appear acutely ill in any way. He does appear somewhat poorly nourished. Neuro: Alert and oriented x3 Psych: Good mood and affect. Good insight and understanding into condition. Chest: Non-labored breathing, no wheezing, no visible shortness of breath. Heart: Regular Abdomen: Soft, nondistended and nontender. Objective Last Vital Signs Temp 99.0 F 02/14/24 07:24 Pulse 77 02/14/24 07:24 Resp 18 02/14/24 07:24 BP 121/71 02/14/24 07:24 Pulse Ox 93 02/14/24 08:43 Laboratory Results - last 24 hr 02/14/24 05:43 Sodium 143 Potassium 3.6 Chloride 107 Carbon Dioxide 26.4 Anion Gap 9.6 BUN 21 H Creatinine 1.0 Est GFR (CKD-EPI 2020) 80.97 Glucose 81 Calcium 8.6 Total Bilirubin 0.47 AST 33 ALT 23 Alkaline Phosphatase 66 C-Reactive Protein 4.38 H Total Protein 7.1 Albumin 2.5 L PAWSS Have you Been Recently Intoxicated or Drunk Within the Last 30 days?: No Have you Ever Experienced Previous Episodes of Alcohol Withdrawal?: No Have you ever Experienced Withdrawal Seizures?: No Have you ever Experienced Delirium Tremens(DT)s?: No Have you ever undergone Alcohol Rehabilitation Treatment (i.e, inpt ot outpatient treatment programs)?: No Have you ever Experienced Blackouts?: No Have you ever Combined Alcohol with other Downers within the last 90 days?: No Have you ever Combined Alcohol with any other Substance of Abuse during the last 90 days?: No Positive Blood Alcohol level on Presentation? [PCS.BAL]: No Evidence of Increased Autonomic Activity (i.e. HR>120, tremor, sweating, agitation, nausea)?: No Result: 0 Time Spent with Patient Time Spent with Patient: >50 minutes Time was spent: preparing to see the patient(eg.review tests), obtaining and/or reviewing separately otained hiistory, ordering medications,tests, procedures, referring, communicating with other health healthcare administration internship, indepentently interpreting results, counseling the patient and care coordination
--- NOTE | 2024-02-14 10:56 | DSE_ITS ---
Date of service: 02/14/24 Time of Service: 10:56 DS: Diagnosis Discharge Diagnosis (1) Severe sepsis: Status: Acute (2) Cellulitis of left leg: Status: Acute (3) UTI (urinary tract infection): Status: Acute (4) Acute hypoxic respiratory failure: Status: Acute (5) LUCILA (acute kidney injury): Status: Acute (6) Colovesical fistula: Status: Acute (7) Recurrent acute deep vein thrombosis (DVT) of right lower extremity: Status: Acute (8) Tobacco use disorder: Status: Acute (9) ETOH abuse: Status: Chronic (10) Hypokalemia: Status: Acute Discharge Plan Disposition Patient Disposition: Home Condition: Stable Discharge Details Reason For Visit: LE cellulitis,SevereSepsis,UTI,LUCILA,Hypoxixrespfail Admit Date/Time: 02/12/24 17:30 Admit Provider: Gigi Haq Attending Provider: Gigi Haq Primary Care Provider: Frank Funk [facility] Course Hospital Course: This is a 68 years old male patient with a past medical history of recurrent DVT on Eliquis, chronic UTI's, chronic left lower extremity cellulitis, current tobacco abuse and daily EtOH intake of red wine who was referred to the ED here by Dr. Addison for hypotension and tachycardia in the setting of a 3 day history of fatigue, left lower back pain and worsening left lower extremity cellulitis. His ED work up shows severe sepsis with source of left lower cellulitis, acute kidney injury. He was placed on broad spectrum antibiotics, was fluid responsive with normalization of blood pressure after bolus. He has been in and out of urgent cares for the last 6 weeks being treated for both UTI and cellulitis. his urine did reflex for culture but results are less the 10k colony of gram pos vidya. He was at surgical appointment for concern of a colovesical fistula and surgery was consulted here and he did undergo a colonoscopy on 02/12. surgical recommendations: PICC was placed for 2 weeks IV antibiotics- invanz for daily dosing. has been arranged in outpatient infusion clinic UNNA boot for LLE once infection is starting to clear. Wound care plan written for hospital care. will be followed by outpatient provider for which he has an appointment on Friday Alcohol counseling, patient has been started on naltrexone for abstinence. will provide 2 weeks supply with outpatient provider to review for ongoing treatment or adjustment as needed. patient is stable for discharge to home with close outpatient follow up. discussed with DR Haq. Home Meds and New Rx's Prescriptions: New naltrexone 50 mg Tablet 50 mg PO DAILY Qty: 14 0RF thiamine mononitrate (vit B1) [Vitamin B-1 (mononitrate)] 100 mg Tablet 100 mg PO DAILY Qty: 30 0RF ertapenem 1 gram recon soln 1 g IV DAILY Qty: 1 0RF Continued Eliquis 5 mg tablet 5 mg PO BID Qty: 180 3RF Rx Instructions: 5 mg twice daily to prevent clots, due to unprovoked DVT Held hydrochlorothiazide 25 mg tablet 25 mg PO DAILY Qty: 90 3RF Hold Instructions: until discussed with outpatient team losartan 25 mg tablet 25 mg PO DAILY Qty: 90 3RF Hold Instructions: until discussed with outpatient team Discontinued sulfamethoxazole-trimethoprim [Bactrim DS] 800-160 mg tablet 1 tab PO BID Qty: 23 0RF No Action aspirin [Adult Aspirin Regimen] 81 mg tablet,delayed release (DR/EC) 81 mg PO DAILY Discharge Instructions Instructions: Cellulitis (skin infection) in adults - Discharge instructions Additional Instructions: Present to outpatient clinic daily for your infusion of antibiotics as directed. PICC line care as instructed, do not get wet. keep dressing clean dry and intact, protect to avoid pulling line out. if line is disrupted, present to ED or outpatient clinic for evaluation. hold your hydrochlorothiazide and losartan until you discuss with your doctor at your appointment on Friday. if you are able check you blood pressure every other morning and bring log to your appointment for review. Your medications were placed on hold for kidney injury that has resolved. your blood pressure has been well controlled and is 119/68 on discharge. Stand Alone Forms: Nursing Discharge Form Referrals: Frank Funk DO [Primary Care Provider] - 02/17/24 (keep scheduled appointment on Friday, call sooner for new or worsening symptoms) Eugenia Addison DO [OSTEOPATHIC DOCTOR] - (Please call Friday to make an appointment.) Activity:: Activity as Tolerated Equipment/Supplies:: No Equipment Needed Diet:: As Tolerated Discharge Orders Discharge Orders: Discharge Order (Routine); Ordered 02/14/24 Ordered By: Luly Brar DS: Summary Time Spent with Patient providing and/or coordinating discharge services: Greater than 30 minutes Status at Discharge Functional status at discharge: uses cane/walker Overall status at discharge: patient is progressing back to baseline Mental Status: mental status grossly normal Speech and Movement: speech and movement normal Mood: congruent mood Affect: normal affect Quality:SDOH Health Related Social Needs: No Data to Display Exam Const General: cooperative and ill appearing (older than stated age) chronically Nutritional Appearance: average body habitus Orientation: alert, awake and oriented x3 HENMT Head: normal to inspection, normocephalic and atraumatic General nose exam: external nose normal Face and sinus: normal facial exam Mouth: oral mucosae normal Eyes General: appearance normal, both eyes and all related structures Neck Neck: normal visual inspection Resp Effort & Inspection: normal respiratory effort Auscultation: clear to auscultation bilaterally Cardio Rate: regular rate Rhythm: regular rhythm Skin General skin exam: other (complexion joan) Rashes: rashes noted (redness within markings just above dressing to LLE, no edema, dressing C/D/) Neuro General: patient alert, patient awake, patient oriented x3 and no focal motor deficits Extrem General: full ROM and edema (unna boot with kong wrap clean dry and intact) Laterality: left Psych Mental Status: mental status grossly normal Speech and Movement: speech and movement normal Mood: congruent mood Affect: normal affect Attitude: cooperative Thought Process: normal Thought Content: normal Insight: insight good Judgment: judgment good DS: Data Vitals/I&O Vitals and I&O: Vital Signs Temperature 37.2 C 02/14/24 07:24 Temperature Source Temporal Artery Scan 02/14/24 07:24 Pulse 77 02/14/24 07:24 Pulse Rhythm Irregular 02/12/24 18:16 Pulse 69 02/13/24 14:01 Respiratory Rate 18 02/14/24 07:24 Respiratory Effort Normal 02/12/24 18:16 Respiratory Depth Normal 02/12/24 18:16 Respiratory Pattern Normal 02/12/24 18:16 Blood Pressure 121/71 02/14/24 07:24 Blood Pressure Mean 97 02/13/24 14:01 Pulse Oximetry 93 02/14/24 08:43 Respiratory End-tidal CO2 30 02/13/24 14:01 Oxygen Delivery Method Room Air 02/14/24 07:24 Oxygen Flow Rate 0 02/14/24 07:24 Pain Level 0 02/14/24 02:49 Comment post-op vitals 02/13/24 14:28 Intake & Output 02/13/24 02/13/24 02/14/24 11:59 23:59 11:59 Intake Total 980.833 / 2310.833 1330.000 / 2310.833 610 / 610 Balance 980.833 / 2310.833 1330.000 / 2310.833 610 / 610 Weight 83.461 kg Intake: IV 980.833 / 2160.833 1180.000 / 2160.833 110 / 110 Oral 150 / 150 500 / 500 Other: Urine Color Yellow Comment Patient voided unmeasured amount into toilet. voided unmeasured amount into toilet Patient voided unmeasured amount into toilet. Reported solid fecal material in urine. Stool Characteristics Liquid Emesis Description None Data Completed and Pending Labs on day of discharge: Labs from last 24 hours 02/14/24 05:43 Sodium 143 Potassium 3.6 Chloride 107 Carbon Dioxide 26.4 Anion Gap 9.6 BUN 21 H Creatinine 1.0 Est GFR (CKD-EPI 2020) 80.97 Glucose 81 Calcium 8.6 Total Bilirubin 0.47 AST 33 ALT 23 Alkaline Phosphatase 66 C-Reactive Protein 4.38 H Total Protein 7.1 Albumin 2.5 L Preliminary micro results at discharge 02/12/24 12:48 Blood Culture - Preliminary Blood NO GROWTH 24 HOURS 02/12/24 12:05 Blood Culture - Preliminary Blood NO GROWTH 24 HOURS PFSH All Active Problems (Updated 02/13/24 @ 12:41 by Eugenia Addison DO) Hypokalemia (Acute) Venous insufficiency of left lower extremity (Acute) Venous stasis dermatitis (Acute) Venous stasis (Acute) Atherosclerosis of arteries (Acute) Fatty liver disease, nonalcoholic (Acute) Coronary artery calcification seen on CAT scan (Acute) ETOH abuse (Chronic) Severe sepsis (Acute) UTI (urinary tract infection) (Acute) LUCILA (acute kidney injury) (Acute) Acute hypoxic respiratory failure (Acute) Hypoxemia (Acute) Venous insufficiency of both lower extremities (Acute) Alcohol dependence, daily use (Acute) Dehydration (Acute) Cellulitis of left leg (Acute) Lesion of liver (Acute) Bowel wall thickening (Acute) Colovesical fistula (Acute) Chronic from colovesical fistula Psoriasis (Chronic) 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 Phlebotomy (remove 500 mL blood) weekly until Hgb <12-13 or ferritin <100, then recheck every 3 months once at goal (see 08/18/14 [facility] Hematology note); 08/2015 chk Ferritin monthly Essential hypertension (Acute 07/04/14) HX: correction anticoagulant use (Acute 12/31/16) Apixaban following DVT 09/22/16 R femoral Carotid occlusion, right (Acute 03/28/07) R carotid occluded per [facility] 03/2007 Candidate for statin therapy due to risk of future cardiovascular event (Acute 07/28/15) 07/28/15 labwork: 10-year ASCVD risk = ~14% --> sent letter to pt recommending we discuss cholesterol medication at f/u Atrial septal aneurysm (Acute 03/31/07) Medical History (Updated 02/13/24 @ 12:41 by Eugenia Addison DO) Hypotension Peripheral edema (07/04/14) Acute deep vein thrombosis (DVT) of femoral vein of right lower extremity (09/26/16) Calculus of kidney (07/14/10) Hypertension Hemochromatosis Surgical History (Updated 02/12/24 @ 20:28 by Eugenia Addison DO) Arthroplasty of knee (10/19/08) [place], [place] Patient had a knee arthroscopy not an arthroplasty Family History Mother , Stroke at age 75. Stroke Father , Liver Disease at age 68. No problems noted. Sister No problems noted. Sister No problems noted. Brother , motor cycle accident at age 20. No problems noted. Brother No problems noted. Brother No problems noted. Brother No problems noted. Social History Smoking/Tobacco Use Status: Current every day Tobacco Type: cigarettes Smoking packs per day: 1 Smoking cigarettes per day: 20.0 Tobacco: How many years used: 52 Quit status: has quit before Second Hand Exposure: Yes (As a child) Smoking risk assessment performed?: Yes Alcohol Intake: current Alcohol Intake frequency: 0-2 drinks per day Alcohol type: wine Drug use: Never Substance use type: does not use Adopted: No Caregiver/Support person: No Foster care: No Household members: significant other and children Housing: house Number of Children: 1 number of grandchildren: 10 Communication Needs: None Education Level: vocational Do you need help understanding health information?: Often 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 Pets and animals: Yes (3 cats; chicken) Pets and animals: cat(s) and farm animals Sexually active: No Do you think of yourself as: straight/heterosexual Current gender identity: male What is your relationship status?: living with partner How often do you talk on the phone with friends or family?: twice per week How often do you get together with friends or relatives?: once per week Do you belong to any clubs or organized social groups?: no Panel score (0-1 are the most socially isolated patients): 2 What type of physical activity do you participate in: other Details: 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; takes care of pellets for stove Duration: 15-30 minutes/day Frequency: daily Sandie/Jain: [employer] Special sandie needs: No Seatbelt use: always Helmet use: No (N/A - no activities that require this) Drive intox or ride w/intox inventory associate and driver: No Working smoke detector in home: Yes Carbon monox detector in home: Yes Do you feel safe at home: Yes Do you feel safe in your relationship?: Yes Time Spent with Patient Time Spent with Patient: 45-69 minutes Time was spent: preparing to see the patient(eg.review tests), obtaining and/or reviewing separately otained hiistory, ordering medications,tests, procedures, indepentently interpreting results and counseling the patient
--- NOTE | 2024-02-14 12:00 | PDOC.CMDIS ---
Date of service: 02/14/24 Time of Service: 12:01 LACE Index Scoring Tool Questions: Length of Stay (in days): 2 Was the patient admitted via the E.D.?: Yes E.D. Visits: 2 Answers: Total Score: 7 Risk of Readmission: Low Risk Care Management Discharge Plan Reason for Hospitalization: Sepsis, UTI, LUCILA Discharge Plan: Discharge home via private vehicle with family. Follow up with community providers and discharge plan as directed. Follow up with Dermatology on Friday and PCP on Friday, as previously scheduled. Daily Infusions to be coordinated at [facility]. Wound care recommendations to be provided by Dermatology or PCP, per pt. No [facility] services are indicated or ordered at the time of discharge. Patient/Family Education Needs: Review discharge instructions, limitations, medications and plan to follow up with community providers and outpatient infusion. Discuss ask me three. [facility] Health Related Social Needs: No Data to Display
--- NOTE | 2024-02-14 13:42 | PT.INTREAT ---
PT Notes Visit Reasons: LE cellulitis,SevereSepsis,UTI,LUCILA,Hypoxixrespfail Inpatient Physical Therapy Treatment Note [facility] Date: 02/14/24 PRECAUTIONS: LLE ELISA wrapped but WBAT SUBJECTIVE: Pt states that he hopes to be going home today. He feels ready. OBJECTIVE: ? PAIN: minimal in LLE VITALS: monitored by nursing Therapeutic Activities (08706p5): Direct one-on-one instruction in dynamic activities to improve functional performance. ? BED MOBILITY/TRANSFERS? Rolling L/R: independent Supine-sit: independent ? Sit-supine: independent ? Sit-stand: independent ? Stand-sit: independent ? Bed-Chair: independent ? Chair-bed: independent -Provided skilled cues and instruction on performance and technique throughout. ? GAIT? Assistive Device: SPC? Weight bearing: WBAT Assist: SBA? Distance:? 400 ft ? Deviation: Decreased gait speed, decreased stance time on LLE ? Therapeutic Exercises (52965d4): Direct one-on-one instruction in therapeutic exercises to develop strength, endurance, range of motion and flexibility. ? Exercises ? step ups x10, standing hip abd x10, standing hip ext x10, standing calf raises x10, standing marching x10 - all bilaterally? -Provided skilled instruction in proper exercise performance -Provided skilled manual cues to facilitate proper muscle recruitment and/or form ASSESSMENT:? Pt fully independent with his functional needs and ready to return home. He has no difficulty with stairs. He was able to perform some exercises today targeting muscles that will help him increase his ambulatory distance which he appreciated. He understands the importance of moving to increase his endurance. He can be safely d/c'd home when medically cleared. PLAN: D/c'd to home TREATMENT CODE/TIME: Ther Ex (72769) x1 - 10 min, Ther Act (72264) x1 - 15 min DISCHARGE RECOMMENDATION: Home with no services
== END 2024-02-14 12:49 | disposition home or self-care (01) | DRG 871 ==
LOC: ER 17:29 → MS 17:59
PROVIDERS: Nurse Practitioner Acute Care; Nurse Practitioner Family; Surgery; Admitting Provider Family Medicine; Emergency Provider Registered Nurse Emergency; PCP Family Medicine; Visit Provider Family Medicine
PROC: 0DJD8ZZ Inspection of Lower Intestinal Tract, Via Natural or Artificial Opening Endoscopic (ICD-10-PCS; CPT 45378; principal; 2024-02-13 12:15)
DX: A41.9 Sepsis, unspecified organism (principal); J96.01 Acute respiratory failure with hypoxia; N17.9 Acute kidney failure, unspecified; N39.0 Urinary tract infection, site not specified; N32.1 Vesicointestinal fistula; L03.116 Cellulitis of left lower limb; I25.3 Aneurysm of heart; I82.401 Acute embolism and thrombosis of unspecified deep veins of right lower extremity; L97.919 Non-pressure chronic ulcer of unspecified part of right lower leg with unspecified severity; K57.20 Diverticulitis of large intestine with perforation and abscess without bleeding; R65.20 Severe sepsis without septic shock; D12.0 Benign neoplasm of cecum; I65.21 Occlusion and stenosis of right carotid artery; E03.9 Hypothyroidism, unspecified; K76.0 Fatty (change of) liver, not elsewhere classified; E83.119 Hemochromatosis, unspecified; E86.0 Dehydration; L40.9 Psoriasis, unspecified; Z86.73 Personal history of transient ischemic attack (TIA), and cerebral infarction without residual deficits; F17.210 Nicotine dependence, cigarettes, uncomplicated; I87.2 Venous insufficiency (chronic) (peripheral); I25.10 Atherosclerotic heart disease of native coronary artery without angina pectoris; E87.6 Hypokalemia; Z79.01 Long term (current) use of anticoagulants; I70.90 Unspecified atherosclerosis; I10 Essential (primary) hypertension; Z66 Do not resuscitate; F10.10 Alcohol abuse, uncomplicated; D12.4 Benign neoplasm of descending colon
CPT/HCPCS: 36569; 45380; 00123; 36415; 36573; 75635; 80053; 82805; 84145; 85652; 87040; 87641; 88305; 93005; 96361; 96365; 96367; 97110; 97116; 97162; 97530; 99214; 99222; 99233; 99285; 71045; 71046; 81003; 81015; 82607; 82728; 82746; 82977; 83605; 83735; 84443; 85025; 85610; 85730; 86140; 87086; 93010; 93971; 99223; 99239; J0696; J1836; J2371; J2543; J2704; J3480

== ENCOUNTER 2024-02-15 00:36 | Outpatient (RCR) | payer MEDICARE, SELFPAY ==
[2024-02-15] MEDS: ERTAPENEM 1 GM in Normal Saline 50 ML IVPB (11:03)
[2024-02-15] MEDS: Normal Saline Flush 10 ML SYR IVP (11:04)
--- NOTE | 2024-02-16 08:58 | W.COLOREPORT ---
Date of service: 02/13/24 Time of Service: 13:00 Colonoscopy Report Date of procedure: 02/13/24 Pre-op diagnosis general: colo-vesical fistula Post-op diagnosis procedure note: same Surgeon: Eugenia Addison Anesthesia Type: General:No Airway Estimated blood loss (mL): 2 Pathology: other Disposition: floor Prep: Miralax/Dulcolax Retraction Time: 10 Procedure Description: After informed consent was obtained, explaining risks of the procedure, including but not limits to: bleeding, infections, complications of anesthesia, perforations (which may require antibiotics and /or surgery and stay in the hospital), and abdominal pain/cramping. The patient was taken to the procedure room and placed in a left decubitous position. Monitors were applied and a time out was done. The patients name, date of , procedure, allergies to medications and metal in their body was reviewed. The patient was then sedated. Once sedated and comfortable a rectal exam was done. External exam was normal. Internal exam revealed a normal sphincter tone and no palpable masses. The prostate no palpable masses The previously lubricated Olympus scope was then introduced (see RN notes for scope number) and retrofelexed. No internal hemorrhoids were identified. The scope was then advanced to the cecum without difficulty. The TI and appendiceal orifice were identified. The scope was then slowly retracted over 10 minutes back into the rectum. Polyps: A flat, .5cm polyp was found at /[id number]. This was removed with a cold biting forceps. All of the specimen was retrieved. This will be sent to pathology. There is no bleeding noted from the polypectomy site. Diverticula: pt had a moderate amount of small mouthed diverticula in the sigmoid colon. Large tic in the area of inflammation is noted in the sigmoid. There is moderate amount of erythema and edema noted to the sigmoid there is no purulent discharge or bleeding. The scope was removed, and the patient was woken up and taken back to Same day surgery in stable condition. The patient tolerated the procedure well and there were no immediate complications. [place] Bowel Prep [place] Bowel Prep Right Colon: 2 Left Colon: 2 Transverse Colon: 2 Total Score: 6
== END 2024-02-19 23:59 | disposition home or self-care (01) ==
LOC: INF 00:36
PROVIDERS: PCP Family Medicine; Visit Provider Nurse Practitioner Acute Care
DX: L03.116 Cellulitis of left lower limb (principal)
CPT/HCPCS: 96365; J1335

== ENCOUNTER 2024-02-19 02:38 | Outpatient (RCR) | payer MEDICARE, SELFPAY ==
[2024-02-16] MEDS: ERTAPENEM 1 GM in Normal Saline 50 ML IVPB (11:07)
[2024-02-16] MEDS: Normal Saline Flush 10 ML SYR IVP (11:08)
[2024-02-17] MEDS: ERTAPENEM 1 GM in Normal Saline 50 ML IVPB (12:56)
[2024-02-17] MEDS: Normal Saline Flush 10 ML SYR IVP (13:01)
[2024-02-18] MEDS: ERTAPENEM 1 GM in Normal Saline 50 ML IVPB (12:55)
[2024-02-18 12:58] VITALS: BP 97/66; PULSE 94; RESP 16; TEMP 36.4; O2SAT 94
[2024-02-18] MEDS: Normal Saline Flush 10 ML SYR IVP (13:00)
[2024-02-19 12:51] VITALS: BP 91/58; PULSE 80; RESP 18; TEMP 36.9; O2SAT 93
[2024-02-19] MEDS: ERTAPENEM 1 GM in Normal Saline 50 ML IVPB (12:52)
[2024-02-19] MEDS: Normal Saline Flush 10 ML SYR IVP (12:53)
[2024-02-19 13:22] VITALS: BP 90/60
== END 2024-02-19 23:59 | disposition home or self-care (01) ==
LOC: INF 02:38
PROVIDERS: PCP Family Medicine; Visit Provider Family Medicine
DX: L03.116 Cellulitis of left lower limb
CPT/HCPCS: 96365; 99195; J1335

== ENCOUNTER 2024-02-20 11:29 | Outpatient (REF) | payer MEDICARE, SELFPAY ==
[2024-02-20 13:39] LABS: HCT 45.8 % (40.0-50.0); HGB 15.6 g/dL (13.5-17.5); MCH 37.3 pg (27.0-33.0); MCHC 34.1 % (32.0-36.0); MCV 110 fL (80-95); MPV 8.9 fL (8.0-11.0); Platelet Count 265 10^3/uL (130-400); RBC 4.18 10^6/uL (4.36-5.78); RDW 12.4 % (11.8-14.1); RDW-SD 50.1 fL; WBC 4.38 10^3/uL (4.4-10.8)
[2024-02-20 14:06] LABS: ALT 55 U/L (16-63); AST 49 U/L (15-37); Albumin 3.2 g/dL (3.4-5.0); Alkaline Phosphatase 90 U/L (46-116); Anion Gap 9.1 mmol/L (3-11); BUN 22 mg/dL (7-18); Bilirubin, Total 0.28 mg/dL (0.2-1.0); C-Reactive Protein 0.53 mg/dL (<or=0.5); CO2 28.9 mmol/L (21.0-32.0); CREATININE 1.4 mg/dL (0.70-1.30); Calcium 9.8 mg/dL (8.5-10.1); Chloride 104 mmol/L (98-107); Estimated GFR 54.07 (mL/min/1.73m2); Glucose 115 mg/dL (74-106); Sodium 142 mmol/L (136-145); Total Protein 8.3 g/dL (6.4-8.2)
== END 2024-02-20 11:30 | disposition home or self-care (01) ==
LOC: LBN 11:29
PROVIDERS: PCP Family Medicine; Visit Provider Nurse Practitioner Acute Care
DX: L03.116 Cellulitis of left lower limb (principal)
CPT/HCPCS: 80053; 85027; 86140

== ENCOUNTER 2024-02-26 03:31 | Outpatient (CLI) | payer MEDICARE, SELFPAY ==
[2024-02-26 08:56] LABS: Ferritin 75 ng/mL (26-388)
== END 2024-02-26 03:32 | disposition home or self-care (01) ==
PROVIDERS: PCP Family Medicine; Visit Provider Family Medicine
DX: E83.119 Hemochromatosis, unspecified (principal)
CPT/HCPCS: 36415; 96365; 82728; J1335

== ENCOUNTER 2024-02-29 00:14 | Outpatient (RCR) | payer MEDICARE, SELFPAY ==
[2024-02-20 00:11] VITALS: BP 90/60; PULSE 80; RESP 18; TEMP 36.9
[2024-02-20] MEDS: ERTAPENEM 1 GM in Normal Saline 50 ML IVPB (12:57)
[2024-02-20] MEDS: Normal Saline Flush 10 ML SYR IVP (12:57)
[2024-02-20 13:21] VITALS: BP 120/76
[2024-02-21] MEDS: ERTAPENEM 1 GM in Normal Saline 50 ML IVPB (13:20)
[2024-02-21] MEDS: Normal Saline Flush 10 ML SYR IVP (13:29)
[2024-02-21 13:30] VITALS: BP 126/76; PULSE 64; RESP 18; TEMP 36.1; O2SAT 93
[2024-02-22] MEDS: Normal Saline Flush 10 ML SYR IVP (12:55)
[2024-02-22] MEDS: ERTAPENEM 1 GM in Normal Saline 50 ML IVPB (12:55)
[2024-02-23] MEDS: ERTAPENEM 1 GM in Normal Saline 50 ML IVPB (12:51)
[2024-02-23] MEDS: Normal Saline Flush 10 ML SYR IVP (12:52)
[2024-02-24] MEDS: ERTAPENEM 1 GM in Normal Saline 50 ML IVPB (12:46)
[2024-02-24] MEDS: Normal Saline Flush 10 ML SYR IVP (12:47)
[2024-02-25] MEDS: Normal Saline Flush 10 ML SYR IVP (12:45)
[2024-02-25] MEDS: ERTAPENEM 1 GM in Normal Saline 50 ML IVPB (12:45)
[2024-02-26] MEDS: ERTAPENEM 1 GM in Normal Saline 50 ML IVPB (12:45)
[2024-02-26] MEDS: Normal Saline Flush 10 ML SYR IVP (12:48)
[2024-02-27] MEDS: ERTAPENEM 1 GM in Normal Saline 50 ML IVPB (13:10)
[2024-02-27 13:53] LABS: HCT 45.4 % (40.0-50.0); HGB 15.5 g/dL (13.5-17.5); MCH 37.3 pg (27.0-33.0); MCHC 34.1 % (32.0-36.0); MCV 109 fL (80-95); MPV 8.8 fL (8.0-11.0); Platelet Count 256 10^3/uL (130-400); RBC 4.16 10^6/uL (4.36-5.78); RDW 11.9 % (11.8-14.1); WBC 4.57 10^3/uL (4.4-10.8)
[2024-02-27 13:57] LABS: Bilirubin Negative (Negative); Blood Moderate (Negative); Clarity Sl Cloudy (Clear); Glucose Negative (Negative); Ketones Negative (Negative); Leukocyte Esterase Moderate (Negative); Nitrite Negative (Negative); Specific Gravity 1.025 (1.005-1.025); Urobilinogen 0.2 mg/dL (Up to 0.2); pH 5.5 (5-8)
[2024-02-27 14:04] LABS: Bacteria Few HPF (Negative); C & S Indicated? Yes; Casts Negative LPF (Negative); Crystals Negative HPF (Negative); Epithelial Cells Few HPF (Negative); Mucus Negative (Negative)
[2024-02-27 14:08] LABS: ALT 38 U/L (16-63); AST 29 U/L (15-37); Alkaline Phosphatase 95 U/L (46-116); Anion Gap 6.5 mmol/L (3-11); BUN 15 mg/dL (7-18); Bilirubin, Total 0.37 mg/dL (0.2-1.0); C-Reactive Protein 0.96 mg/dL (<or=0.5); CO2 30.5 mmol/L (21.0-32.0); CREATININE 0.9 mg/dL (0.70-1.30); Calcium 9.3 mg/dL (8.5-10.1); Chloride 106 mmol/L (98-107); Estimated GFR 91.88 (mL/min/1.73m2); Glucose 117 mg/dL (74-106); Potassium 3.9 mmol/L (3.5-5.1); Sodium 143 mmol/L (136-145); Total Protein 7.8 g/dL (6.4-8.2)
[2024-02-27] MEDS: Normal Saline Flush 10 ML SYR IVP (14:10)
[2024-02-28] MEDS: ERTAPENEM 1 GM in Normal Saline 50 ML IVPB (12:32)
[2024-02-29] MEDS: ERTAPENEM 1 GM in Normal Saline 50 ML IVPB (12:51)
== END 2024-03-20 23:59 | disposition home or self-care (01) ==
LOC: INF 00:14
PROVIDERS: Nurse Practitioner Acute Care; Surgery; PCP Family Medicine; Visit Provider Family Medicine
DX: L03.116 Cellulitis of left lower limb (principal)
CPT/HCPCS: 36591; 36592; 80053; 85027; 96365; 81003; 81015; 86140; 87086; J1335

== ENCOUNTER → 2024-03-01 10:30 | Outpatient (BNVA) | payer MEDICARE, SELFPAY | PROVIDERS: PCP Family Medicine; Referring Provider Family Medicine; Visit Provider Surgery | DX: K57.80 Diverticulitis of intestine, part unspecified, with perforation and abscess without bleeding (principal); N39.0 Urinary tract infection, site not specified; E83.119 Hemochromatosis, unspecified; F17.201 Nicotine dependence, unspecified, in remission; E46 Unspecified protein-calorie malnutrition | CPT/HCPCS: 99215 ==

== ENCOUNTER 2024-03-08 12:49 | Emergency (ER) | payer MEDICARE, SELFPAY ==
[2024-03-08 12:58] VITALS: BP 107/73; PULSE 97; RESP 18; TEMP 36.5; O2SAT 93
--- NOTE | 2024-03-08 13:00 | RT.EKG_ITS ---
APPROVED REPORT Exam: Resting ECG Reason for Exam: chest pain Patient Location: E HR:93 bpm ECG Measurements Heart Rate 93 AXIS WY 165 P 62 QRSd 129 QRS -72 QT 357 T 31 QTc 442 Conclusion Sinus rhythm...normal P axis, V-rate 60- 99 Atrial premature complex...SV complex w/ short R-R interval Probable left atrial enlargement...P >50mS, <-0.10mV V1 Right bundle branch block...QRSd>120, terminal axis(90,270) Inferior infarct, old...Q >35mS, II III aVF Normal sinus rhythm at a rate of 93. Interventricular conduction delay. QTc within normal limits. WY within normal limits. Right bundle branch block. Left axis deviation?bifascicular block. M ild ST segment elevation in V2. Slight more pronounced ST segment depressions V4 through V6 new comp ared to prior. Prior dated last month.
[2024-03-08] MEDS: Breeza Beverage 473 ML BTL PO ×2 (13:26→13:28)
[2024-03-08] MEDS: Omnipaque 350 MG/ML 50 ML BTL PO (13:27)
[2024-03-08 13:59] VITALS: RESP 23
[2024-03-08 14:03] VITALS: BP 134/80; PULSE 83; RESP 24; TEMP 36.6; O2SAT 95
[2024-03-08 14:06] LABS: Abs Immature Grans 0.03 10^3/uL (0.0-0.06); Absolute Basophil Count 0.03 10^3/uL (0.0-0.2); Absolute Eosinophil Count 0.04 10^3/uL (0.0-0.7); Absolute Lymphocyte Count 1.06 10^3/uL (1.2-3.4); Absolute Monocyte Count 0.79 10^3/uL (0.1-0.8); Absolute Neutrophil Count 5.79 10^3/uL (1.2-6.7); Basophils % 0.4 %; Eosinophils % 0.5 %; HCT 47.9 % (40.0-50.0); HGB 16.2 g/dL (13.5-17.5); Immature Grans % 0.4 %; Lymphocytes % 13.7 %; MCH 36.8 pg (27.0-33.0); MCHC 33.8 % (32.0-36.0); MCV 109 fL (80-95); MPV 9.3 fL (8.0-11.0); Monocytes % 10.2 %; Neutrophils % 74.8 %; Platelet Count 183 10^3/uL (130-400); RDW 11.5 % (11.8-14.1); RDW-SD 46.9 fL; WBC 7.74 10^3/uL (4.4-10.8)
--- NOTE | 2024-03-08 14:25 | W.ED.GENAD ---
Discharge Plan Disposition Patient Disposition: Home Discharge Details Clinical Impression: Colovesical fistula, Acute epigastric pain Primary Care Provider: Frank Funk ED Provider: Regino Cano Home Meds and New Rx's Prescriptions: Continued hydrochlorothiazide 25 mg tablet 25 mg PO DAILY Qty: 90 3RF varenicline [Chantix] 1 mg tablet 1 mg PO BID Qty: 56 0RF levofloxacin 500 mg tablet 500 mg PO DAILY 31 Days Qty: 30 5RF aspirin [Adult Aspirin Regimen] 81 mg tablet,delayed release (DR/EC) 81 mg PO DAILY Eliquis 5 mg tablet 5 mg PO BID Qty: 180 3RF Rx Instructions: 5 mg twice daily to prevent clots, due to unprovoked DVT losartan 25 mg tablet 25 mg PO DAILY Qty: 90 3RF naltrexone 50 mg Tablet 50 mg PO DAILY Qty: 14 0RF thiamine mononitrate (vit B1) [Vitamin B-1 (mononitrate)] 100 mg Tablet 100 mg PO DAILY Qty: 30 0RF ertapenem 1 gram recon soln 1 g IV DAILY Qty: 1 0RF Discharge Instructions Instructions: Enteric fistula Additional Instructions: You are seen in the emergency department for your abdominal pain. Your CAT scan showed no changes in the connection between your colon and your bladder for which a referral has been placed to colorectal surgery at [facility]. As we discussed if you develop worsening chest pain if you pass out or if you cannot eat or drink as result of nausea or vomiting or if you take any falls please return to the emergency department. Otherwise please continue taking your home medications. Discharge Data Discharge Date/Time-TO BE ENTERED AT DEPARTURE: 03/08/24 16:48 HPI General Date/Time Provider Initiated Documentation: 03/08/24 13:06. HPI Narrative: MDM This is an uncomfortable appearing afebrile and not tachycardic 68-year-old male with diffuse bodyaches and epigastric abdominal pain concerning for worsening of his known colovesical fistula for which she will undergo CT scan. No pain out of proportion to suggest necrotizing soft tissue infection. ECG nonischemic however will obtain a delta troponin to rule the patient out for ACS. No right lower quadrant tenderness to suggest appendicitis. No rash to abdomen to suggest zoster. No dysuria or frequency so doubt UTI. My suspicion is that left shoulder pain is referred pain from abdomen. No nuchal rigidity to suggest meningitis. Not altered to suggest encephalitis. No fevers and full range of motion left shoulder so not suspicious for septic joint. No signs of dislocation the left shoulder. No rash to left shoulder to suggest zoster. No recent PICC line at left hand is warm well-perfused so not concern for upper extremity DVT. Nontender humerus so not suspicious for fracture. No diarrhea to suggest worsening of known diverticulitis. No black nor bloody stools to suggest GI bleed. No tearing quality to chest pain to suggest aortic dissection. No fevers or cough to suggest pneumonia. Patient is not hypotensive nor dialysis patient so my suspicion is low for tamponade. No trauma to chest to suggest increased risk for pneumothorax. No vomiting no recent alcohol abuse so my suspicion is low for Elizabeth-Soto tear. 3:33 PM CBC lacks leukocytosis. Macrocytosis but no anemia. Similar to prior. No thrombocytopenia. Comprehensive metabolic panel showing no LUCILA. Mild hyperbilirubinemia worse compared to prior. Mild hypoalbuminemia. No acute electrolyte abnormalities. Normal reassuring lipase. Initial troponin reassuring at 10 ng/L. ECG nonischemic. I spoke with Dr. Addison from general surgery. She and I reviewed the patient's CT scan which showed no significant change in the appearance of the patient's sigmoid diverticulitis and abscess collection between the sigmoid colon and bladder. She advised that the patient was on the follow-up list with colorectal surgery at [facility]. Patient and I discussed return indications including any fevers nausea vomiting chest pain dysuria or frequency. He is on prophylactic antibiotics. Repeat troponin with delta of 0. Patient understood his return indications and was discharged with an empiric trial of expectant outpatient management. 03/09 I called the patient at home to inquire as to how he was feeling. He was resting but reportedly feeling improved. He had been taking acetaminophen. He had had no fevers no recurrent chest pain. He endorsed some low back pain. We discussed his dosing for acetaminophen and plan for continued rest. I did advise that if you develop chest pain if he passed out or develop fevers that she should return to the emergency department. Chronic conditions affecting the care of the patient: colovesical fistula History obtained from an outside historian: Dr. Addison External record review: N/A Diagnostic interpretations performed by me: No acute cardiopulmonary process Per my independent interpretation chest x-ray shows: Per my independent interpretation EKG shows: Normal sinus rhythm at a rate of 93. Interventricular conduction delay. QTc within normal limits. FL within normal limits. Right bundle branch block. Left axis deviation??bifascicular block. Mild ST segment elevation in V2. Slight more pronounced ST segment depressions V4 through V6 new compared to prior. Prior dated last month. ]Medications: N/A Social determinants of health affecting disposition: N/A Management discussed with: Dr. Addison Treatment/interventions considered: N/A Response to therapies provided: N/A HPI This is a 68-year-old male with a history of colovesicular fistula right emergency department via private vehicle in setting of abdominal pain and shoulder pain. Patient reports that he was slightly more active 2 days ago. He endorses body aches as chest hips back neck and left shoulder. He he continues on prophylactic antibiotics in the setting of his known colovesicular fistula. He follows with Dr. Addison who advised patient to come to the emergency department. He denies nausea and shortness of breath. No recent fevers or chills. No history of any recent falls. He has a referral in place to colorectal surgery at [facility]. He reportedly quit tobacco and alcohol more than a month ago. Denies any recent falls. Exam General: Elderly-appearing in no acute distress speaking in complete sentences. Head: Normocephalic, atraumatic. Eye: Extraocular eye movements intact. No conjunctival injection. No scleral icterus. Ear, nose, mouth, throat: Grossly normal inspection. Normal voice, handling secretions normally. Neck: Trachea midline. Cardiovascular: Well-perfused distal extremities. Regular rate and rhythm Respiratory: Nonlabored respiration. Clear lungs bilaterally Gastrointestinal: Nondistended abdomen. Soft with epigastric and left lower quadrant tenderness. Musculoskeletal: No edema. Moving all 4 extremities spontaneously. Left shoulder nontender. Patient able to touch his left hand to his contralateral right shoulder. He is able to fully abduct his left shoulder. He is able to fully flex and extend his left shoulder. No pain to palpation of humerus elbow and left forearm. Left hand warm well-perfused 2+ left radial pulse. Sensation motor function intact in left hand across the radial, median, and ulnar nerve distributions. Skin: Normal for age and race, grossly normal temperature and turgor. No acute rash. Neurologic: Alert and appropriate, no apparent acute deficits. GCS 15. Psychiatric: Mood and manner are appropriate. Grooming and personal hygiene are appropriate. Related Data Home Medications ?Medication ?Instructions ?Recorded ?Confirmed aspirin 81 mg tablet,delayed 81 mg PO DAILY 07/26/20 03/08/24 release (Adult Aspirin Regimen) apixaban 5 mg tablet (Eliquis) 5 mg PO BID #180 tabs 02/27/23 03/08/24 hydrochlorothiazide 25 mg tablet 25 mg PO DAILY #90 tabs 03/17/23 03/08/24 losartan 25 mg tablet 25 mg PO DAILY #90 tabs 08/29/23 03/08/24 ertapenem 1 gram solution for 1 g IV DAILY #1 ea 02/14/24 03/08/24 injection naltrexone 50 mg tablet 50 mg PO DAILY #14 tabs 02/14/24 03/08/24 thiamine mononitrate (vit B1) 100 100 mg PO DAILY #30 tabs 02/14/24 03/08/24 mg tablet (Vitamin B-1 (mononitrate)) varenicline 1 mg tablet (Chantix) 1 mg PO BID #56 tabs 02/17/24 03/08/24 levofloxacin 500 mg tablet 500 mg PO DAILY 31 days #30 tabs 03/01/24 03/08/24 Previous Rx's ?Medication ?Instructions ?Recorded apixaban 5 mg tablet (Eliquis) 5 mg PO BID #180 tabs 02/27/23 hydrochlorothiazide 25 mg tablet 25 mg PO DAILY #90 tabs 03/17/23 losartan 25 mg tablet 25 mg PO DAILY #90 tabs 08/29/23 ertapenem 1 gram solution for 1 g IV DAILY #1 ea 02/14/24 injection naltrexone 50 mg tablet 50 mg PO DAILY #14 tabs 02/14/24 thiamine mononitrate (vit B1) 100 100 mg PO DAILY #30 tabs 02/14/24 mg tablet (Vitamin B-1 (mononitrate)) varenicline 1 mg tablet (Chantix) 1 mg PO BID #56 tabs 02/17/24 levofloxacin 500 mg tablet 500 mg PO DAILY 31 days #30 tabs 03/01/24 Allergies Allergy/AdvReac Type Severity Reaction Status Date / Time lisinopril AdvReac Intermediate COUGH Verified 03/01/24 10:42 terbinafine (From Lamisil) AdvReac Intermediate weight Verified 03/01/24 10:42 loss, loss of taste General Stated Complaint: [facility] MARIA EUGENIA: 2 Course Vital Signs Vital signs: Vital Signs Temperature 36.5 C 03/08/24 12:58 Pulse 97 H 03/08/24 12:58 Respiratory Rate 18 03/08/24 12:58 Blood Pressure 107/73 03/08/24 12:58 Pulse Oximetry 93 03/08/24 12:58 Temperature 36.6 C 03/08/24 14:03 Temperature Source Oral 03/08/24 14:03 Pulse 83 03/08/24 14:03 Respiratory Rate 24 03/08/24 14:03 Respiratory Effort Normal, Non-Labored 03/08/24 13:59 Respiratory Depth Normal 03/08/24 13:59 Respiratory Pattern Normal 03/08/24 13:59 Blood Pressure 134/80 03/08/24 14:03 Blood Pressure Position Supine 03/08/24 14:03 Pulse Oximetry 95 03/08/24 14:03 Oxygen Delivery Method Room Air 03/08/24 14:03 Oxygen Flow Rate 0 03/08/24 12:58 Pain Level 2 03/08/24 14:03 Lab/Test Results Lab/Test Results: Laboratory Tests Range/Units 03/08/24 13:57 WBC (4.4-10.8) 10^3/uL 7.74 RBC (4.36-5.78) 10^6/uL 4.40 Hgb (13.5-17.5) g/dL 16.2 Hct (40.0-50.0) % 47.9 MCV (80-95) fL 109 H MCH (27.0-33.0) pg 36.8 H MCHC (32.0-36.0) % 33.8 RDW (11.8-14.1) % 11.5 L Plt Count (130-400) 10^3/uL 183 MPV (8.0-11.0) fL 9.3 Immature Gran % % 0.4 Neutrophils % % 74.8 Lymphocytes % % 13.7 Monocytes % % 10.2 Eosinophils % % 0.5 Basophils % % 0.4 Nucleated RBC % (0.0-0.3) % 0.0 Absolute Neutrophils (1.2-6.7) 10^3/uL 5.79 Absolute Lymphocytes (1.2-3.4) 10^3/uL 1.06 L Absolute Monocytes (0.1-0.8) 10^3/uL 0.79 Absolute Eosinophils (0.0-0.7) 10^3/uL 0.04 Absolute Basophils (0.0-0.2) 10^3/uL 0.03 Medical Decision Making Quality:SDOH Health Related Social Needs: No Data to Display PFSH All Active Problems (Updated 03/08/24 @ 16:39 by Regino Cano MD) Acute epigastric pain (Acute) Colovesical fistula (Acute) Fatigue (Acute) Protein calorie malnutrition (Acute) Muscle atrophy (Acute) Muscle weakness (Acute) Diverticulitis of intestine with abscess without bleeding (Acute) Tobacco abuse, in remission (Acute) Alcohol abuse, in remission (Acute) Venous insufficiency of left lower extremity (Acute) Venous stasis (Acute) Atherosclerosis of arteries (Acute) Fatty liver disease, nonalcoholic (Acute) Coronary artery calcification seen on CAT scan (Acute) UTI (urinary tract infection) (Acute) Venous insufficiency of both lower extremities (Acute) Lesion of liver (Acute) Bowel wall thickening (Acute) Colovesical fistula (Acute) Chronic from colovesical fistula Psoriasis (Chronic) 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 use (Acute 12/31/16) Apixaban following DVT 09/22/16 R femoral Carotid occlusion, right (Acute 03/28/07) R carotid occluded per hospital [place] 03/2007 Candidate for statin therapy due to risk of future cardiovascular event (Acute 07/28/15) 07/28/15 labwork: 10-year ASCVD risk = ~14% --> sent letter to pt recommending we discuss cholesterol medication at f/u Atrial septal aneurysm (Acute 03/31/07) Medical History Venous stasis dermatitis 03/01/2024 - cleared by Dr Espinoza Severe sepsis Dehydration LUCILA (acute kidney injury) Hypokalemia Tobacco use disorder (07/28/15) 1 PPD since age 14 Tobacco dependence Hypoxemia Acute hypoxic respiratory failure ETOH abuse Alcohol dependence, daily use Hypotension Peripheral edema (07/04/14) Acute deep vein thrombosis (DVT) of femoral vein of right lower extremity (09/26/16) Calculus of kidney (07/14/10) Hypertension Hemochromatosis Surgical History Arthroplasty of knee (10/19/08) [place] Patient had a knee arthroscopy not an arthroplasty Family History Mother , Stroke at age 75. Stroke Father , Liver Disease at age 68. No problems noted. Sister No problems noted. Sister No problems noted. Brother , motor cycle accident at age 20. No problems noted. Brother No problems noted. Brother No problems noted. Brother No problems noted. Social History Smoking/Tobacco Use Status: Current every day Tobacco Type: cigarettes Smoking packs per day: 1 Smoking cigarettes per day: 20.0 Tobacco: How many years used: 52 Quit status: has quit before Second Hand Exposure: Yes (As a child) Smoking risk assessment performed?: Yes Alcohol Intake: current Alcohol Intake frequency: 0-2 drinks per day Alcohol type: wine Drug use: Never Substance use type: does not use Adopted: No Caregiver/Support person: No Foster care: No Household members: significant other and children Housing: house Number of Children: 1 number of grandchildren: 10 Communication Needs: None Education Level: vocational Do you need help understanding health information?: Often 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 Pets and animals: Yes (3 cats; chicken) Pets and animals: cat(s) and farm animals Sexually active: No Do you think of yourself as: straight/heterosexual Current gender identity: male What is your relationship status?: living with partner How often do you talk on the phone with friends or family?: twice per week How often do you get together with friends or relatives?: once per week Do you belong to any clubs or organized social groups?: no Panel score (0-1 are the most socially isolated patients): 2 What type of physical activity do you participate in: other Details: 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
[2024-03-08 14:53] LABS: ALT 27 U/L (16-63); AST 31 U/L (15-37); Albumin 2.9 g/dL (3.4-5.0); Alkaline Phosphatase 79 U/L (46-116); Anion Gap 6.3 mmol/L (3-11); BUN 16 mg/dL (7-18); Bilirubin, Total 1.08 mg/dL (0.2-1.0); CO2 29.7 mmol/L (21.0-32.0); CREATININE 1.1 mg/dL (0.70-1.30); Calcium 9.1 mg/dL (8.5-10.1); Chloride 103 mmol/L (98-107); Estimated GFR 72.22 (mL/min/1.73m2); Glucose 104 mg/dL (74-106); Lipase 26 U/L (16-77); Potassium 4.5 mmol/L (3.5-5.1); Sodium 139 mmol/L (136-145); Total Protein 8.1 g/dL (6.4-8.2); Troponin I 10 ng/L (<or=76)
[2024-03-08] MEDS: Omnipaque 350 MG/ML 100 ML BTL 75 ML IJ (15:06)
[2024-03-08] MEDS: Normal Saline - Diluent 50 ML VIAL IJ (15:07)
--- NOTE | 2024-03-08 15:15 | DI.CT_ITS ---
Exam(s) CT ABDOMEN PELVIS W EXAM: CT ABDOMEN PELVIS W CLINICAL HISTORY: Colovesical fistula. TECHNIQUE: Imaging Protocol: Axial computed tomography images with coronal and sagittal reformatted images were created and reviewed CONTRAST MATERIAL: Intravenous: Omnipaque 350 Contrast volume:75 ml Oral: yes/946 mL Taylor with 50 mL Omnipaque 350 COMPARISON: CT CT RENAL COLIC WO from 02/09/[address] ABD AORTA CTA W RUNOFF from 02/12/2024 FINDINGS: ABDOMEN and PELVIS: Lung Bases: Atelectasis at lingula and right lower lobe. Liver: Normal density. No suspicious mass. Gallbladder and biliary tract: No radiodense calculus. No biliary dilation. Pancreas: Normal density. No abnormal calcifications or inflammatory process. No evidence of mass. Spleen: Normal. Kidneys: Normal size, contour and axis. No radiodense stones. No obstructive uropathy. No suspicious masses seen. Adrenal glands: No masses seen. Vasculature: Abdominal aorta non-dilated. Soft tissues: Tiny fat containing umbilical hernia. Bladder: Superior wall thickening adjacent to sigmoid colon. Air within urinary bladder again noted. Findings consistent with colovesical fistula.. No calculi.No focal mass. Bowel: No obstruction. Sigmoid diverticulitis again noted. No change in abscess located between si gmoid colon and bladder. Administered oral contrast extends to the splenic flexure. There is a larg e quantity of stool throughout the colon. Appendix normal. Peritoneal cavity: No ascites. No focal collection. No mesenteric inflammatory response. Bones: Degenerative changes in the spine and hips. Reproductive organs: Unremarkable. Lymph nodes: No pathologically enlarged lymph nodes. IMPRESSION:: No significant change in appearance of sigmoid diverticulitis and abscess collection be tween sigmoid colon and bladder. Significant quantity of air and bladder consistent with colovesical fistula. The administered contrast is not yet extend to this area of the colon. Findings called to Dr. Cano of the emergency department. RADIATION DOSE DELIVERED: Total DLP DATA REPOSITORY: All CT scans at this facility are submitted to the National Radiology Data Registry (NRDR) Dose Index Registry (DIR) with the [employer] (ACR). RADIATION OPTIMIZATION: All CT scans at this facility use at least one of these dose optimization te chniques: automated exposure control; mA and/or kV adjustment per patient size (includes targeted exa ms where dose is matched to clinical indication); or iterative reconstruction.
--- NOTE | 2024-03-08 15:26 | DI.RAD_ITS ---
Exam(s) XR CHEST 2V PA LATERAL EXAM: XR CHEST 2V PA LATERAL CLINICAL HISTORY: Chest pain TECHNIQUE: 2D digital imaging was performed. Two views. COMPARISON: CR XR CHEST 2V PA LATERAL from 02/12/2024 CR XR PORTABLE CHEST AP from 02/13/2024 FINDINGS: HEART: Normal size. Aorta: Not dilated. Tortuous. PULMONARY VASCULATURE: Normal. MEDIASTINUM: Unremarkable. LUNGS: Clear. No infiltrate or pulmonary edema. PLEURAL SPACE: No pleural effusion or pneumothorax. BONE:Unremarkable for age. SOFT TISSUES: Unremarkable. IMPRESSION: No acute abnormality. DATA REPOSITORY: RADIATION DOSE DELIVERED:
[2024-03-08 16:29] LABS: Troponin I 10 ng/L (<or=76)
[2024-03-08 16:45] VITALS: BP 127/76; PULSE 87; RESP 15; O2SAT 92
== END 2024-03-08 16:48 | disposition home or self-care (01) ==
PROVIDERS: Emergency Provider Emergency Medicine; PCP Family Medicine
DX: R10.13 Epigastric pain (principal); I25.10 Atherosclerotic heart disease of native coronary artery without angina pectoris; K76.0 Fatty (change of) liver, not elsewhere classified; E03.9 Hypothyroidism, unspecified; I10 Essential (primary) hypertension; Z79.01 Long term (current) use of anticoagulants; Z79.82 Long term (current) use of aspirin; Z79.899 Other long term (current) drug therapy
CPT/HCPCS: 36415; 80053; 83690; 93005; 99285; 71046; 74177; 84484; 85025; 93010; J3490; Q9967

== ENCOUNTER 2024-03-25 03:07 | Outpatient (CLI) | payer MEDICARE, MEDICAID, SELFPAY ==
[2024-03-25 09:02] LABS: Ferritin 84 ng/mL (26-388)
== END 2024-03-25 03:08 | disposition home or self-care (01) ==
PROVIDERS: PCP Family Medicine; Visit Provider Family Medicine
DX: E83.119 Hemochromatosis, unspecified (principal)
CPT/HCPCS: 36415; 82728

== ENCOUNTER → 2024-04-08 13:28 | Outpatient (BNVA) | payer MEDICARE, MEDICAID, SELFPAY | PROVIDERS: PCP Family Medicine; Referring Provider Family Medicine; Visit Provider Surgery ==

== ENCOUNTER 2024-04-08 16:39 | Outpatient (CLI) | payer MEDICARE, MEDICAID, SELFPAY ==
[2024-04-08 14:28] LABS: Abs Immature Grans 0.01 10^3/uL (0.0-0.06); Absolute Basophil Count 0.04 10^3/uL (0.0-0.2); Absolute Eosinophil Count 0.16 10^3/uL (0.0-0.7); Absolute Lymphocyte Count 1.67 10^3/uL (1.2-3.4); Absolute Monocyte Count 0.63 10^3/uL (0.1-0.8); Absolute Neutrophil Count 1.99 10^3/uL (1.2-6.7); Basophils % 0.9 %; Eosinophils % 3.6 %; HCT 47.5 % (40.0-50.0); HGB 16.3 g/dL (13.5-17.5); Immature Grans % 0.2 %; Lymphocytes % 37.1 %; MCH 35.4 pg (27.0-33.0); MCHC 34.3 % (32.0-36.0); MCV 103 fL (80-95); MPV 8.9 fL (8.0-11.0); Neutrophils % 44.2 %; Platelet Count 216 10^3/uL (130-400); RDW 11.5 % (11.8-14.1)
[2024-04-08 14:48] LABS: C-Reactive Protein < 0.50 mg/dL (<or=0.5)
== END 2024-04-08 16:40 | disposition home or self-care (01) ==
LOC: LBO 16:47
PROVIDERS: PCP Family Medicine; Visit Provider Surgery
DX: F10.11 Alcohol abuse, in remission (principal); I10 Essential (primary) hypertension; I25.10 Atherosclerotic heart disease of native coronary artery without angina pectoris; N32.1 Vesicointestinal fistula; K92.1 Melena
CPT/HCPCS: 36415; 99214; 85025; 86140

== ENCOUNTER 2024-07-22 03:20 | Outpatient (CLI) | payer MEDICARE, SELFPAY ==
[2024-07-22 09:10] LABS: Ferritin 62 ng/mL (26-388)
== END 2024-07-22 03:21 | disposition home or self-care (01) ==
PROVIDERS: Nurse Practitioner Adult Health; PCP Family Medicine; Visit Provider Family Medicine
DX: E83.119 Hemochromatosis, unspecified (principal)
CPT/HCPCS: 36415; 82728

== ENCOUNTER 2024-08-19 03:33 | Outpatient (CLI) | payer MEDICARE, SELFPAY ==
[2024-08-19 08:39] LABS: Ferritin 38 ng/mL (26-388)
== END 2024-08-19 03:34 | disposition home or self-care (01) ==
PROVIDERS: PCP Family Medicine; Visit Provider Family Medicine
DX: E83.119 Hemochromatosis, unspecified (principal)
CPT/HCPCS: 36415; 82728

== ENCOUNTER 2024-09-23 03:20 | Outpatient (CLI) | payer MEDICARE, SELFPAY ==
[2024-09-23 09:53] LABS: Ferritin 46 ng/mL (26-388)
== END 2024-09-23 03:21 | disposition home or self-care (01) ==
PROVIDERS: PCP Family Medicine; Visit Provider Family Medicine
DX: E83.119 Hemochromatosis, unspecified (principal)
CPT/HCPCS: 36415; 82728

== ENCOUNTER 2024-10-21 02:47 | Outpatient (CLI) | payer MEDICARE, SELFPAY ==
[2024-10-21 10:05] LABS: Ferritin 73 ng/mL (26-388)
== END 2024-10-21 02:48 | disposition home or self-care (01) ==
PROVIDERS: PCP Family Medicine; Visit Provider Family Medicine
DX: E83.119 Hemochromatosis, unspecified (principal)
CPT/HCPCS: 36415; 82728

== ENCOUNTER 2024-10-27 09:48 | Observation (INO) | payer MEDICARE, SELFPAY ==
[2024-10-27 10:08] VITALS: BP 161/105; PULSE 92; RESP 18; TEMP 36.7; O2SAT 90
--- NOTE | 2024-10-27 10:15 | DI.US_ITS ---
Exam(s) US LOWER EXTREMITY VENOUS LT EXAM: US LOWER EXTREMITY VENOUS LT CLINICAL HISTORY: LLL swelling, infection, LEFT PER PROVIDER. TECHNIQUE: Lower extremity venous ultrasound performed using grayscale, color- flow, and spectral Doppler analysis. COMPARISON: CT CT ABDOMEN PELVIS W from 03/08/2024 FINDINGS: The common femoral, femoral and popliteal veins demonstrate normal compressibility, augmentation, and color Doppler. The posterior tibial and peroneal veins are patent. No saphenous vein thrombosis or other superficial venous thrombosis is seen. There are dilated varicosities in the calf region without thrombus. No hematoma or Cowan's cyst is seen. Normal appearing left inguinal lymph nodes. IMPRESSION: Negative lower extremity ultrasound. No evidence of DVT. Calf varicosities. DATA REPOSITORY:
[2024-10-27 11:17] LABS: Abs Immature Grans 0.01 10^3/uL (0.0-0.06); HCT 51.0 % (40.0-50.0); HGB 17.5 g/dL (13.5-17.5); Immature Grans % 0.2 %; MCH 35.4 pg (27.0-33.0); MCHC 34.3 % (32.0-36.0); MCV 103 fL (80-95); MPV 8.9 fL (8.0-11.0); Platelet Count 219 10^3/uL (130-400); RBC 4.95 10^6/uL (4.36-5.78); RDW 12.3 % (11.8-14.1); RDW-SD 47.0 fL; WBC 4.61 10^3/uL (4.4-10.8)
[2024-10-27 11:22] LABS: ESR 16 mm/hr (0-20)
[2024-10-27 11:29] LABS: INR 1.1 (0.9-1.1); Prothrombin Time 10.8 sec (9.1-11.1)
[2024-10-27] MEDS: VANCOMYCIN/WATER (PEG) 1 GM/200 ML BAG IVPB ×2 (11:46→18:30)
[2024-10-27 11:50] VITALS: BP 144/90; PULSE 89; RESP 16; O2SAT 94
[2024-10-27 12:11] LABS: Procalcitonin < 0.10 ng/mL
[2024-10-27 12:24] LABS: ALT 25 U/L (16-63); AST 31 U/L (15-37); Albumin 3.7 g/dL (3.4-5.0); Alkaline Phosphatase 110 U/L (46-116); Anion Gap 9.0 mmol/L (3-11); BUN 18 mg/dL (7-18); Bilirubin, Total 0.7 mg/dL (0.2-1.0); C-Reactive Protein 0.61 mg/dL (<or=0.5); CO2 31.0 mmol/L (21.0-32.0); Calcium 9.6 mg/dL (8.5-10.1); Chloride 99 mmol/L (98-107); Estimated GFR 91.31 (mL/min/1.73m2); Glucose 103 mg/dL (74-106); Magnesium 2.1 mg/dL (1.8-2.4); Potassium 4.1 mmol/L (3.5-5.1); Sodium 139 mmol/L (136-145); Total Protein 8.2 g/dL (6.4-8.2)
[2024-10-27] MEDS: CEFEPIME 2 GM in Normal Saline 100 ML IVPB ×2 (13:41→22:24)
--- NOTE | 2024-10-27 13:45 | HPE_ITS ---
[facility] All Active Problems (Updated 05/06/24 @ 14:38 by Lori Giles CMA) 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 (Acute) Tubular adenoma of colon (Acute ~01/2024) Blood in stool (Acute) Tendinopathy of both shoulders (Acute) Fatigue (Acute) Protein calorie malnutrition (Acute) Muscle atrophy (Acute) Muscle weakness (Acute) Diverticulitis of intestine with abscess without bleeding (Acute) Tobacco abuse, in remission (Acute) Alcohol abuse, in remission (Acute) Venous insufficiency of left lower extremity (Acute) Venous stasis (Acute) Atherosclerosis of arteries (Acute) Fatty liver disease, nonalcoholic (Acute) Coronary artery calcification seen on CAT scan (Acute) Venous insufficiency of both lower extremities (Acute) Lesion of liver (Acute) Bowel wall thickening (Acute) Colovesical fistula (Acute) Chronic from colovesical fistula Psoriasis (Chronic) 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 Phlebotomy (remove 500 mL blood) weekly until Hgb <12-13 or ferritin <100, then recheck every 3 months once at goal (see 08/18/14 [facility] [place] Hematology note); 08/2015 chk Ferritin monthly Essential hypertension (Acute 07/04/14) HX: alf anticoagulant use (Acute 12/31/16) Apixaban following DVT 09/22/16 R femoral Carotid occlusion, right (Acute 03/28/07) R carotid occluded per hospital [place] 03/2007 Candidate for statin therapy due to risk of future cardiovascular event (Acute 07/28/15) 07/28/15 labwork: 10-year ASCVD risk = ~14% --> sent letter to pt recommending we discuss cholesterol medication at f/u Atrial septal aneurysm (Acute 03/31/07) Medical History (Updated 05/06/24 @ 14:38 by Lori Giles CMA) UTI (urinary tract infection) Venous stasis dermatitis 03/01/2024 - cleared by Dr Hammer Severe sepsis Dehydration LUCILA (acute kidney injury) Hypokalemia Tobacco use disorder (07/28/15) 1 PPD since age 14 Tobacco dependence Hypoxemia Acute hypoxic respiratory failure ETOH abuse Alcohol dependence, daily use Hypotension Peripheral edema (07/04/14) Acute deep vein thrombosis (DVT) of femoral vein of right lower extremity (09/26/16) Calculus of kidney (07/14/10) Hypertension Hemochromatosis Surgical History (Updated 04/23/24 @ 11:41 by Mary Hogan RN) H/O colonoscopy (02/13/24) Dr Addison Arthroplasty of knee (10/19/08) [place], [place] Patient had a knee arthroscopy not an arthroplasty Family History Mother , Stroke at age 75. Stroke Father , Liver Disease at age 68. No problems noted. Sister No problems noted. Sister No problems noted. Brother , motor cycle accident at age 20. No problems noted. Brother No problems noted. Brother No problems noted. Brother No problems noted. Social History Smoking/Tobacco Use Status: Current every day Tobacco Type: cigarettes Smoking packs per day: 1 Smoking cigarettes per day: 20.0 Tobacco: How many years used: 52 Quit status: has quit before Second Hand Exposure: Yes (As a child) Smoking risk assessment performed?: Yes Alcohol Intake: current Alcohol Intake frequency: 0-2 drinks per day Alcohol type: wine Drug use: Never Substance use type: does not use Adopted: No Caregiver/Support person: No Foster care: No Household members: significant other and children Housing: house Number of Children: 1 number of grandchildren: 10 Communication Needs: None Education Level: vocational Do you need help understanding health information?: Often 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 Pets and animals: Yes (3 cats; chicken) Pets and animals: cat(s) and farm animals Sexually active: No Do you think of yourself as: straight/heterosexual Current gender identity: male What is your relationship status?: living with partner How often do you talk on the phone with friends or family?: twice per week How often do you get together with friends or relatives?: once per week Do you belong to any clubs or organized social groups?: no Panel score (0-1 are the most socially isolated patients): 2 What type of physical activity do you participate in: other Details: 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; takes care of pellets for stove Duration: 15-30 minutes/day Frequency: daily Sandie/Rastafarian: Lutheran Special sandie needs: No Seatbelt use: always Helmet use: No (N/A - no activities that require this) Drive intox or ride w/intox local bulk driver: No Working smoke detector in home: Yes Carbon monox detector in home: Yes Do you feel safe at home: Yes Do you feel safe in your relationship?: Yes Meds Allergies and Home Medications Allergies Allergy/AdvReac Type Severity Reaction Status Date / Time levofloxacin Allergy Severe causes Verified 10/27/24 10:13 severe pain everywhere lisinopril AdvReac Intermediate COUGH Verified 10/27/24 10:13 terbinafine (From Lamisil) AdvReac Intermediate weight Verified 10/27/24 10:13 loss, loss of taste Home Medications ?Medication ?Instructions ?Recorded ?Confirmed ?Type aspirin 81 mg tablet,delayed 81 mg PO DAILY 07/26/20 0 10/27/24 History release (Adult Aspirin Regimen) losartan 25 mg tablet 25 mg PO DAILY #90 tabs 08/1910/27/24 Rx apixaban 5 mg tablet (Eliquis) 5 mg PO BID #180 tabs 1 05/09/23 10/27/24 Rx ciprofloxacin HCl 500 mg tablet 500 mg PO BID #60 tabs 03/09/24 10/27/24 Rx bacitracin zinc 500 unit/gram 1 applic topical BID jared lulitis 10 10/19/24 10/27/24 Rx topical ointment (Antibiotic days #14 grams (bacitracin zinc)) cephalexin 500 mg capsule 500 mg PO Q12H cellulitus 10 days 10/19/24 10/27/24 Rx #20 caps cetirizine 10 mg capsule (All Day 10 mg PO DAILY PRN i tching #30 caps 10/19/24 10/27/24 Rx Allergy (cetirizine)) hydrochlorothiazide 25 mg tablet 25 mg PO DAILY #90 ta bs 10/19/24 10/27/24 Rx Results Labs 10/27/24 11:08 10/27/24 11:08 Labs: Laboratory Results - last 24 hr 10/27/24 11:08 WBC 4.61 RBC 4.95 Hgb 17.5 Hct 51.0 H MCV 103 H MCH 35.4 H MCHC 34.3 RDW 12.3 Plt Count 219 MPV 8.9 Immature Gran % 0.2 Neutrophils % 59.3 Lymphocytes % 25.8 Monocytes % 10.4 Eosinophils % 3.0 Basophils % 1.3 Nucleated RBC % 0.0 Absolute Neutrophils 2.73 Absolute Lymphocytes 1.19 L Absolute Monocytes 0.48 Absolute Eosinophils 0.14 Absolute Basophils 0.06 ESR 16 PT 10.8 INR 1.1 VBG Lactate 1.3 Sodium 139 Potassium 4.1 Chloride 99 Carbon Dioxide 31.0 Anion Gap 9.0 BUN 18 Creatinine 0.9 Est GFR (CKD-EPI 2020) 91.31 Glucose 103 Calcium 9.6 Magnesium 2.1 Total Bilirubin 0.7 AST 31 ALT 25 Alkaline Phosphatase 110 C-Reactive Protein 0.61 H Total Protein 8.2 Albumin 3.7 Procalcitonin < 0.10 Last Vital Signs Temp 36.7 C 10/27/24 10:08 Pulse 89 10/27/24 11:50 Resp 16 10/27/24 11:50 BP 144/90 H 10/27/24 11:50 Pulse Ox 94 10/27/24 11:50
--- NOTE | 2024-10-27 14:11 | ED.GENADUL_ITS ---
Discharge Plan Disposition Patient Disposition: Admit to [facility] Condition: Fair Discharge Details Clinical Impression: Cellulitis of left leg Primary Care Provider: Frank Funk ED Provider: Gem Tamayo Home Meds and New Rx's Prescriptions: No Action bacitracin zinc [Antibiotic (bacitracin zinc)] 500 unit/gram ointment 1 applic topical BID 10 Days Qty: 14 1RF cephalexin 500 mg capsule 500 mg PO Q12H 10 Days Qty: 20 0RF hydrochlorothiazide 25 mg tablet 25 mg PO DAILY Qty: 90 3RF All Day Allergy (cetirizine) 10 mg capsule 10 mg PO DAILY PRN (Reason: itching) Qty: 30 0RF aspirin [Adult Aspirin Regimen] 81 mg tablet,delayed release (DR/EC) 81 mg PO DAILY losartan 25 mg tablet 25 mg PO DAILY Qty: 90 3RF Eliquis 5 mg tablet 5 mg PO BID Qty: 180 3RF Rx Instructions: 5 mg twice daily to prevent clots, due to unprovoked DVT ciprofloxacin HCl 500 mg tablet 500 mg PO BID Qty: 60 6RF HPI General Date/Time Provider Initiated Documentation: 10/27/24 10:19 . Limitations to Documentation: no limitations . Information obtained by: patient . HPI Narrative: 69-year-old gentleman with past medical history of hypothyroid vascular disease presents for evaluation of left lower leg redness. Reports his symptoms have been progressively worsening over the last week. Last week he was seen by urgent care and started on antibiotics. He reports compliance with the antibiotics. He reports that the redness is been increasing, he reports increased swelling and pain. Subjective fever. Was reevaluated at urgent care this morning and referred to the emergency department. Related Data Home Medications ?Medication ?Instructions ?Recorded ?Confirmed aspirin 81 mg tablet,delayed 81 mg PO DAILY 07/26/20 0 10/27/24 release (Adult Aspirin Regimen) losartan 25 mg tablet 25 mg PO DAILY #90 tabs 08/1910/27/24 apixaban 5 mg tablet (Eliquis) 5 mg PO BID #180 tabs 1 05/09/23 10/27/24 ciprofloxacin HCl 500 mg tablet 500 mg PO BID #60 tabs 03/09/24 10/27/24 bacitracin zinc 500 unit/gram 1 applic topical BID jared lulitis 10 10/19/24 10/27/24 topical ointment (Antibiotic days #14 grams (bacitracin zinc)) cephalexin 500 mg capsule 500 mg PO Q12H cellulitus 10 days 10/19/24 10/27/24 #20 caps cetirizine 10 mg capsule (All Day 10 mg PO DAILY PRN i tching #30 caps 10/19/24 10/27/24 Allergy (cetirizine)) hydrochlorothiazide 25 mg tablet 25 mg PO DAILY #90 ta bs 10/19/24 10/27/24 Previous Rx's ?Medication ?Instructions ?Recorded losartan 25 mg tablet 25 mg PO DAILY #90 tabs 08/19 apixaban 5 mg tablet (Eliquis) 5 mg PO BID #180 tabs 1 05/09/23 ciprofloxacin HCl 500 mg tablet 500 mg PO BID #60 tabs 03/09/24 bacitracin zinc 500 unit/gram 1 applic topical BID jared lulitis 10 10/19/24 topical ointment (Antibiotic days #14 grams (bacitracin zinc)) cephalexin 500 mg capsule 500 mg PO Q12H cellulitus 10 days 10/19/24 #20 caps cetirizine 10 mg capsule (All Day 10 mg PO DAILY PRN i tching #30 caps 10/19/24 Allergy (cetirizine)) hydrochlorothiazide 25 mg tablet 25 mg PO DAILY #90 ta bs 10/19/24 Allergies Allergy/AdvReac Type Severity Reaction Status Date / Time levofloxacin Allergy Severe causes Verified 10/27/24 10:13 severe pain everywhere lisinopril AdvReac Intermediate COUGH Verified 10/27/24 10:13 terbinafine (From Lamisil) AdvReac Intermediate weight Verified 10/27/24 10:13 loss, loss of taste General Stated Complaint: Cellulitis MARIA EUGENIA: 3 Exam Narrative Exam Narrative: Review of Systems: All systems reviewed & are unremarkable except as noted in HPI and below Well-developed, no acute distress Afebrile NCAT RRR Unlabored respiratory effort Nondistended abdomen Bilateral lower extremities with some venous stasis changes, left lower extremity with diffuse circumferential erythema, warmth, mild tenderness, this extends up the calf to the knee. Foot appears discolored as well. There is a 2+ DP pulse, I do not appreciate crepitus, there are no large wounds but several small areas of ulceration Course Vital Signs Vital signs: Vital Signs Temperature 36.7 C 10/27/24 10:08 Pulse 92 H 10/27/24 10:08 Respiratory Rate 18 10/27/24 10:08 Blood Pressure 161/105 H 10/27/24 10:08 Pulse Oximetry 90 L 10/27/24 10:08 Temperature 36.7 C 10/27/24 10:08 Pulse 89 10/27/24 11:50 Respiratory Rate 16 10/27/24 11:50 Blood Pressure 144/90 H 10/27/24 11:50 Blood Pressure Mean 108 10/27/24 11:50 Blood Pressure Position Sitting 10/27/24 11:50 Pulse Oximetry 94 10/27/24 11:50 Oxygen Delivery Method Room Air 10/27/24 11:50 Oxygen Flow Rate 0 10/27/24 11:50 Pain Level 3 10/27/24 10:24 Lab/Test Results Lab/Test Results: 10/27/24 11:40 Blood Blood Culture - Pending 10/27/24 11:08 Blood Blood Culture - Pending Laboratory Tests Range/Units 10/27/24 11:08 WBC (4.4-10.8) 10^3/uL 4.61 RBC (4.36-5.78) 10^6/uL 4.95 Hgb (13.5-17.5) g/dL 17.5 Hct (40.0-50.0) % 51.0 H MCV (80-95) fL 103 H MCH (27.0-33.0) pg 35.4 H MCHC (32.0-36.0) % 34.3 RDW (11.8-14.1) % 12.3 Plt Count (130-400) 10^3/uL 219 MPV (8.0-11.0) fL 8.9 Immature Gran % % 0.2 Neutrophils % % 59.3 Lymphocytes % % 25.8 Monocytes % % 10.4 Eosinophils % % 3.0 Basophils % % 1.3 Nucleated RBC % (0.0-0.3) % 0.0 Absolute Neutrophils (1.2-6.7) 10^3/uL 2.73 Absolute Lymphocytes (1.2-3.4) 10^3/uL 1.19 L Absolute Monocytes (0.1-0.8) 10^3/uL 0.48 Absolute Eosinophils (0.0-0.7) 10^3/uL 0.14 Absolute Basophils (0.0-0.2) 10^3/uL 0.06 ESR (0-20) mm/hr 16 PT (9.1-11.1) sec 10.8 INR (0.9-1.1) 1.1 VBG Lactate (<or=2.0) mmol/L 1.3 Sodium (136-145) mmol/L 139 Potassium (3.5-5.1) mmol/L 4.1 Chloride (98-107) mmol/L 99 Carbon Dioxide (21.0-32.0) mmol/L 31.0 Anion Gap (3-11) mmol/L 9.0 BUN (7-18) mg/dL 18 Creatinine (0.70-1.30) mg/dL 0.9 Est GFR (CKD-EPI 2020) (mL/min/1.73m2) 91.31 Glucose (74-106) mg/dL 103 Calcium (8.5-10.1) mg/dL 9.6 Magnesium (1.8-2.4) mg/dL 2.1 Total Bilirubin (0.2-1.0) mg/dL 0.7 AST (15-37) U/L 31 ALT (16-63) U/L 25 Alkaline Phosphatase (46-116) U/L 110 C-Reactive Protein (<or=0.5) mg/dL 0.61 H Total Protein (6.4-8.2) g/dL 8.2 Albumin (3.4-5.0) g/dL 3.7 Procalcitonin ng/mL < 0.10 Medical Decision Making Emergent evaluation of left lower extremity infection. Initial differential includes venous stasis, less likely arterial insufficiency given the good pulse in the leg, cellulitis. I doubt deep space infection. Patient has been on Keflex for the last week but symptoms have been worsening. He was evaluated with the lab work, which included normal white blood cell count, normal lactate. Mildly elevated CRP. Procalcitonin is not elevated. These markers are reassuring. An ultrasound of the leg was obtained to evaluate for possible DVT., This was negative for DVT. Patient has been given broad-spectrum antibiotics, vancomycin and cefepime. Given the progressively worsening symptoms, will admit to the hospital for continued IV antibiotics. PFSH All Active Problems (Updated 10/27/24 @ 14:15 by Gem Tamayo MD) Cellulitis of left leg (Acute) 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 (Acute) Tubular adenoma of colon (Acute ~01/2024) Blood in stool (Acute) Tendinopathy of both shoulders (Acute) Fatigue (Acute) Protein calorie malnutrition (Acute) Muscle atrophy (Acute) Muscle weakness (Acute) Diverticulitis of intestine with abscess without bleeding (Acute) Tobacco abuse, in remission (Acute) Alcohol abuse, in remission (Acute) Venous insufficiency of left lower extremity (Acute) Venous stasis (Acute) Atherosclerosis of arteries (Acute) Fatty liver disease, nonalcoholic (Acute) Coronary artery calcification seen on CAT scan (Acute) Venous insufficiency of both lower extremities (Acute) Lesion of liver (Acute) Bowel wall thickening (Acute) Colovesical fistula (Acute) Chronic from colovesical fistula Psoriasis (Chronic) 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 Phlebotomy (remove 500 mL blood) weekly until Hgb <12-13 or ferritin <100, then recheck every 3 months once at goal (see 08/18/14 [facility] [place] Hematology note); 08/2015 chk Ferritin monthly Essential hypertension (Acute 07/04/14) HX: half-way anticoagulant use (Acute 12/31/16) Apixaban following DVT 09/22/16 R femoral Carotid occlusion, right (Acute 03/28/07) R carotid occluded per hospital [place] 03/2007 Candidate for statin therapy due to risk of future cardiovascular event (Acute 07/28/15) 07/28/15 labwork: 10-year ASCVD risk = ~14% --> sent letter to pt recommending we discuss cholesterol medication at f/u Atrial septal aneurysm (Acute 03/31/07) Medical History (Updated 10/27/24 @ 14:15 by Gem Tamayo MD) UTI (urinary tract infection) Venous stasis dermatitis 03/01/2024 - cleared by Dr Espinoza Severe sepsis Dehydration LUCILA (acute kidney injury) Hypokalemia Tobacco use disorder (07/28/15) 1 PPD since age 14 Tobacco dependence Hypoxemia Acute hypoxic respiratory failure ETOH abuse Alcohol dependence, daily use Hypotension Peripheral edema (07/04/14) Acute deep vein thrombosis (DVT) of femoral vein of right lower extremity (09/26/16) Calculus of kidney (07/14/10) Hypertension Hemochromatosis Surgical History (Updated 04/23/24 @ 11:41 by Mary Hogan RN) H/O colonoscopy (02/13/24) Dr Addison Arthroplasty of knee (10/19/08) [place], [place] Patient had a knee arthroscopy not an arthroplasty Family History Mother , Stroke at age 75. Stroke Father , Liver Disease at age 68. No problems noted. Sister No problems noted. Sister No problems noted. Brother , motor cycle accident at age 20. No problems noted. Brother No problems noted. Brother No problems noted. Brother No problems noted. Social History Smoking/Tobacco Use Status: Current every day Tobacco Type: cigarettes Smoking packs per day: 1 Smoking cigarettes per day: 20.0 Tobacco: How many years used: 52 Quit status: has quit before Second Hand Exposure: Yes (As a child) Smoking risk assessment performed?: Yes Alcohol Intake: current Alcohol Intake frequency: 0-2 drinks per day Alcohol type: wine Drug use: Never Substance use type: does not use Adopted: No Caregiver/Support person: No Foster care: No Household members: significant other and children Housing: house Number of Children: 1 number of grandchildren: 10 Communication Needs: None Education Level: vocational Do you need help understanding health information?: Often 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 Pets and animals: Yes (3 cats; chicken) Pets and animals: cat(s) and farm animals Sexually active: No Do you think of yourself as: straight/heterosexual Current gender identity: male What is your relationship status?: living with partner How often do you talk on the phone with friends or family?: twice per week How often do you get together with friends or relatives?: once per week Do you belong to any clubs or organized social groups?: no Panel score (0-1 are the most socially isolated patients): 2 What type of physical activity do you participate in: other Details: 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; takes care of pellets for stove Duration: 15-30 minutes/day Frequency: daily Sandie/Sabianist: Nondenominational Special sandie needs: No Seatbelt use: always Helmet use: No (N/A - no activities that require this) Drive intox or ride w/intox equipment driver: No Working smoke detector in home: Yes Carbon monox detector in home: Yes Do you feel safe at home: Yes Do you feel safe in your relationship?: Yes
[2024-10-27] MEDS: Lactated Ringers 1,000 ML 125 ML IV (15:05)
[2024-10-27 16:16] VITALS: BP 129/76; PULSE 77; TEMP 37
[2024-10-27 17:28] VITALS: BP 139/95; PULSE 60; RESP 16; TEMP 37.9; O2SAT 92
--- NOTE | 2024-10-27 17:31 | W.PM.HP.N ---
Date of service: 10/27/24 Time of Service: 13:00 Assessment and Plan Assessment and plan (1) Cellulitis of left leg: Status: Acute Assessment and plan: Not septic on admission Failed outpatient antibiotics Initiating IV vancomycin and IV cefepime Follow blood cultures (2) HX: jail anticoagulant use: Status: Acute Assessment and plan: Home regimen apixaban, continue History of multiple unprovoked DVTs (3) Venous insufficiency of both lower extremities: Status: Acute Assessment and plan: Chronic, has seen [facility] vascular surgery in 2020 (4) Essential hypertension: Status: Acute Assessment and plan: Continue home losartan Hold home HCTZ to avoid unnecessary diuresis while hospitalized History of Present Illness History of Present Illness Chief Complaint: left leg swelling and pain Narrative: Parviz Elise is a 69 year old man presenting October 27 with left lower leg swelling, redness and pain, 8 days after starting outpatient antibiotic treatment (keflex). Redness and swelling were previously below the knee but now extend up the thigh. Patient reports that he took his pills faithfully per directions. He reports that he feels like he's getting sick, without specific symptoms. No chest pain, no SOB, no abdominal pain, no N/V/D. In the ED, he was found to have elevated blood pressure to 160's / 100's with tachycardia in the 90's. CRP elevated 0.61. No evidence of DVT on US VTE. Blood cultures were drawn and IV antibiotics were started. PMH includes venous stasis disease, CAD, JOHNSON, diverticulitis and hypothyroidism. PFSH All Active Problems (Updated 10/27/24 @ 14:15 by Gem Tamayo MD) Cellulitis of left leg (Acute) 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 (Acute) Tubular adenoma of colon (Acute ~01/2024) Blood in stool (Acute) Tendinopathy of both shoulders (Acute) Fatigue (Acute) Protein calorie malnutrition (Acute) Muscle atrophy (Acute) Muscle weakness (Acute) Diverticulitis of intestine with abscess without bleeding (Acute) Tobacco abuse, in remission (Acute) Alcohol abuse, in remission (Acute) Venous insufficiency of left lower extremity (Acute) Venous stasis (Acute) Atherosclerosis of arteries (Acute) Fatty liver disease, nonalcoholic (Acute) Coronary artery calcification seen on CAT scan (Acute) Venous insufficiency of both lower extremities (Acute) Lesion of liver (Acute) Bowel wall thickening (Acute) Colovesical fistula (Acute) Chronic from colovesical fistula Psoriasis (Chronic) 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 (Acute 12/31/16) Apixaban following DVT 09/22/16 R femoral Carotid occlusion, right (Acute 03/28/07) R carotid occluded per hospital [place] 03/2007 Candidate for statin therapy due to risk of future cardiovascular event (Acute 07/28/15) 07/28/15 labwork: 10-year ASCVD risk = ~14% --> sent letter to pt recommending we discuss cholesterol medication at f/u Atrial septal aneurysm (Acute 03/31/07) Medical History (Updated 10/27/24 @ 14:15 by Gem Tamayo MD) UTI (urinary tract infection) Venous stasis dermatitis 03/01/2024 - cleared by Dr Espinoza Severe sepsis Dehydration LUCILA (acute kidney injury) Hypokalemia Tobacco use disorder (07/28/15) 1 PPD since age 14 Tobacco dependence Hypoxemia Acute hypoxic respiratory failure ETOH abuse Alcohol dependence, daily use Hypotension Peripheral edema (07/04/14) Acute deep vein thrombosis (DVT) of femoral vein of right lower extremity (09/26/16) Calculus of kidney (07/14/10) Hypertension Hemochromatosis Surgical History (Updated 04/23/24 @ 11:41 by Mary Hogan RN) H/O colonoscopy (02/13/24) Dr Addison Arthroplasty of knee (10/19/08) [place] Patient had a knee arthroscopy not an arthroplasty Family History Mother , Stroke at age 75. Stroke Father , Liver Disease at age 68. No problems noted. Sister No problems noted. Sister No problems noted. Brother , motor cycle accident at age 20. No problems noted. Brother No problems noted. Brother No problems noted. Brother No problems noted. Social History Smoking/Tobacco Use Status: Current every day Tobacco Type: cigarettes Smoking packs per day: 1 Smoking cigarettes per day: 20.0 Tobacco: How many years used: 52 Quit status: has quit before Second Hand Exposure: Yes (As a child) Smoking risk assessment performed?: Yes Alcohol Intake: current Alcohol Intake frequency: 0-2 drinks per day Alcohol type: wine Drug use: Never Substance use type: does not use Adopted: No Caregiver/Support person: No Foster care: No Household members: significant other and children Housing: house Number of Children: 1 number of grandchildren: 10 Communication Needs: None Education Level: vocational Do you need help understanding health information?: Often 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 Pets and animals: Yes (3 cats; chicken) Pets and animals: cat(s) and farm animals Sexually active: No Do you think of yourself as: straight/heterosexual Current gender identity: male What is your relationship status?: living with partner How often do you talk on the phone with friends or family?: twice per week How often do you get together with friends or relatives?: once per week Do you belong to any clubs or organized social groups?: no Panel score (0-1 are the most socially isolated patients): 2 What type of physical activity do you participate in: other Details: 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; takes care of pellets for stove Duration: 15-30 minutes/day Frequency: daily Sandie/Evangelical: Nondenominational Special sandie needs: No Seatbelt use: always Helmet use: No (N/A - no activities that require this) Drive intox or ride w/intox cdl a driver: No Working smoke detector in home: Yes Carbon monox detector in home: Yes Do you feel safe at home: Yes Do you feel safe in your relationship?: Yes Meds Allergies and Home Medications Allergies Allergy/AdvReac Type Severity Reaction Status Date / Time levofloxacin Allergy Severe causes Verified 10/27/24 10:13 severe pain everywhere lisinopril AdvReac Intermediate COUGH Verified 10/27/24 10:13 terbinafine (From Lamisil) AdvReac Intermediate weight Verified 10/27/24 10:13 loss, loss of taste Home Medications ?Medication ?Instructions ?Recorded ?Confirmed ?Type aspirin 81 mg tablet,delayed 81 mg PO DAILY 07/26/20 10/27/24 History release (Adult Aspirin Regimen) losartan 25 mg tablet 25 mg PO DAILY #90 tabs 08/29/23 10/27/24 Rx apixaban 5 mg tablet (Eliquis) 5 mg PO BID #180 tabs 03/09/24 10/27/24 Rx ciprofloxacin HCl 500 mg tablet 500 mg PO BID #60 tabs 03/09/24 10/27/24 Rx bacitracin zinc 500 unit/gram 1 applic topical BID cellulitis 10 10/19/24 10/27/24 Rx topical ointment (Antibiotic days #14 grams (bacitracin zinc)) cephalexin 500 mg capsule 500 mg PO Q12H cellulitus 10 days 10/19/24 10/27/24 Rx #20 caps cetirizine 10 mg capsule (All Day 10 mg PO DAILY PRN itching #30 caps 10/19/24 10/27/24 Rx Allergy (cetirizine)) hydrochlorothiazide 25 mg tablet 25 mg PO DAILY #90 tabs 10/19/24 10/27/24 Rx Exam Narrative Exam Narrative: General: This is a pleasant man in mild distress due to leg pain HEENT: Normocephalic, atraumatic CV: RRR Resp: CTAB Abd: NTND +NBS MSK: BLE with stigmata of venous stasis. LLE with circumferential erythema, not erysipeloid Results Imaging Imaging Studies: * * * * * EXAM: US LOWER EXTREMITY VENOUS LT IMPRESSION: Negative lower extremity ultrasound. No evidence of DVT. Calf varicosities. Dictated By: Jane Natarajan M.D. 10/27/24 1050 * * * * * Labs 10/27/24 11:08 10/27/24 11:08 Labs: Laboratory Results - last 24 hr 10/27/24 11:08 WBC 4.61 RBC 4.95 Hgb 17.5 Hct 51.0 H MCV 103 H MCH 35.4 H MCHC 34.3 RDW 12.3 Plt Count 219 MPV 8.9 Immature Gran % 0.2 Neutrophils % 59.3 Lymphocytes % 25.8 Monocytes % 10.4 Eosinophils % 3.0 Basophils % 1.3 Nucleated RBC % 0.0 Absolute Neutrophils 2.73 Absolute Lymphocytes 1.19 L Absolute Monocytes 0.48 Absolute Eosinophils 0.14 Absolute Basophils 0.06 ESR 16 PT 10.8 INR 1.1 VBG Lactate 1.3 Sodium 139 Potassium 4.1 Chloride 99 Carbon Dioxide 31.0 Anion Gap 9.0 BUN 18 Creatinine 0.9 Est GFR (CKD-EPI 2020) 91.31 Glucose 103 Calcium 9.6 Magnesium 2.1 Total Bilirubin 0.7 AST 31 ALT 25 Alkaline Phosphatase 110 C-Reactive Protein 0.61 H Total Protein 8.2 Albumin 3.7 Procalcitonin < 0.10 Last Vital Signs Temp 37.0 C 10/27/24 16:16 Pulse 77 10/27/24 16:16 Resp 16 10/27/24 11:50 BP 129/76 10/27/24 16:16 Pulse Ox 94 10/27/24 11:50 Time Spent Time spent with Patient: 40-54 minutes Time was spent: preparing to see the patient(eg.review tests), obtaining and/or reviewing separately otained hiistory, ordering medications,tests, procedures, referring, communicating with other health career manager, indepentently interpreting results, counseling the patient and care coordination
[2024-10-27] MEDS: Acetaminophen 325 MG TAB 650 MG PO (18:55)
[2024-10-27] MEDS: Apixaban 5 MG TAB PO (20:05)
[2024-10-27] MEDS: Normal Saline Flush 10 ML SYR IVP (20:05)
[2024-10-27 20:13] VITALS: BP 109/71; PULSE 71; RESP 19; TEMP 36.7; O2SAT 92
[2024-10-28] MEDS: Lactated Ringers 1,000 ML 125 ML IV (01:23)
[2024-10-28] MEDS: CEFEPIME 2 GM in Normal Saline 100 ML IVPB (06:19)
[2024-10-28] MEDS: VANCOMYCIN/WATER (PEG) 1 GM/200 ML BAG IVPB (07:08)
[2024-10-28 07:26] VITALS: BP 130/83; PULSE 75; RESP 16; TEMP 36.3; O2SAT 92
[2024-10-28 07:30] LABS: ALT 20 U/L (16-63); AST 20 U/L (15-37); Albumin 3.0 g/dL (3.4-5.0); Alkaline Phosphatase 87 U/L (46-116); Anion Gap 5.7 mmol/L (3-11); BUN 19 mg/dL (7-18); Bilirubin, Total 1.0 mg/dL (0.2-1.0); CO2 30.3 mmol/L (21.0-32.0); Calcium 8.8 mg/dL (8.5-10.1); Chloride 103 mmol/L (98-107); Estimated GFR 94.62 (mL/min/1.73m2); Glucose 97 mg/dL (74-106); Magnesium 1.9 mg/dL (1.8-2.4); Potassium 3.3 mmol/L (3.5-5.1); Sodium 139 mmol/L (136-145); Total Protein 6.6 g/dL (6.4-8.2)
[2024-10-28 07:51] LABS: HCT 44.8 % (40.0-50.0); HGB 15.8 g/dL (13.5-17.5); MCH 36.5 pg (27.0-33.0); MCHC 35.3 % (32.0-36.0); MCV 104 fL (80-95); MPV 9.5 fL (8.0-11.0); Platelet Count 185 10^3/uL (130-400); RBC 4.33 10^6/uL (4.36-5.78); RDW 12.2 % (11.8-14.1); RDW-SD 46.8 fL; WBC 3.81 10^3/uL (4.4-10.8)
--- NOTE | 2024-10-28 08:56 | PDOC.CMIN ---
Date of service: 10/28/24 Time of Service: 08:56 Care Management Initial Assmt Initial Assessment Reason for Hospitalization: Cellulitis, LLE Functional Status/Living Situation Patient Presentation: Parviz was lying in his bed, when CM arrived. He presented to the ED for evaluation of left lower leg redness. Parviz easily engages in conversation and shares with CM he recently had [place] [facility] [place] ..... Parviz is a smoker but denies needing nicotine replacement at this time. 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: Y 03/09/24, 10:40 Date Asked 07/21/24 10/15/24, 10:45 AD Date Reviewed 10/27/24 10/27/24, 10:[address] [facility] COLST Date Scanned Code Status Resuscitation Status Full Code Portal Pt does not currently have a portal and education provided: Yes Insurance Coverage/Financial Issues Insurance: Medicare Part A & B - [id number] AETNA [facility] Ins - [id number] Care Team Visit Care Team Role Provider Type Frank Funk DO Primary Care Provider OSTEOPATHIC DOCTOR Gem Tamayo MD Emergency Provider [facility] STAFF PHYSICIAN Lukas Arenas MD Admit Provider [facility] STAFF PHYSICIAN Attending Provider Discharge Potential Discharge Needs: PCP F/U Appt Anticipated Barriers to Discharge: Medical Status Patient/Family Education Needs: Review discharge instructions, discuss Ask Me Three Transportation: Private vehicle Plan: Parviz is being treated with IV ABX and requires additional medical workup. Anticipate, Parviz will discharge home when medically ready with a plan to follow up with community providers. Parviz will likely transport via private vehicle. CM will follow. Social Determinants of Health Screening Will the Patient Participate in the Screening?: Unable to obtain PFSH All Active Problems (Updated 10/27/24 @ 14:15 by Gem Tamayo MD) Cellulitis of left leg (Acute) 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 (Acute) Tubular adenoma of colon (Acute ~01/2024) Blood in stool (Acute) Tendinopathy of both shoulders (Acute) Fatigue (Acute) Protein calorie malnutrition (Acute) Muscle atrophy (Acute) Muscle weakness (Acute) Diverticulitis of intestine with abscess without bleeding (Acute) Tobacco abuse, in remission (Acute) Alcohol abuse, in remission (Acute) Venous insufficiency of left lower extremity (Acute) Venous stasis (Acute) Atherosclerosis of arteries (Acute) Fatty liver disease, nonalcoholic (Acute) Coronary artery calcification seen on CAT scan (Acute) Venous insufficiency of both lower extremities (Acute) Lesion of liver (Acute) Bowel wall thickening (Acute) Colovesical fistula (Acute) Chronic from colovesical fistula Psoriasis (Chronic) 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 (Acute 12/31/16) Apixaban following DVT 09/22/16 R femoral Carotid occlusion, right (Acute 03/28/07) R carotid occluded per hospital [place] 03/2007 Candidate for statin therapy due to risk of future cardiovascular event (Acute 07/28/15) 07/28/15 labwork: 10-year ASCVD risk = ~14% --> sent letter to pt recommending we discuss cholesterol medication at f/u Atrial septal aneurysm (Acute 03/31/07) Medical History (Updated 10/27/24 @ 14:15 by Gem Tamayo MD) UTI (urinary tract infection) Venous stasis dermatitis 03/01/2024 - cleared by Dr Espinoza Severe sepsis Dehydration LUCILA (acute kidney injury) Hypokalemia Tobacco use disorder (07/28/15) 1 PPD since age 14 Tobacco dependence Hypoxemia Acute hypoxic respiratory failure ETOH abuse Alcohol dependence, daily use Hypotension Peripheral edema (07/04/14) Acute deep vein thrombosis (DVT) of femoral vein of right lower extremity (09/26/16) Calculus of kidney (07/14/10) Hypertension Hemochromatosis Surgical History (Updated 04/23/24 @ 11:41 by Mary Hogan RN) H/O colonoscopy (02/13/24) Dr Addison Arthroplasty of knee (10/19/08) [place], [place] Patient had a knee arthroscopy not an arthroplasty Family History Mother , Stroke at age 75. Stroke Father , Liver Disease at age 68. No problems noted. Sister No problems noted. Sister No problems noted. Brother , motor cycle accident at age 20. No problems noted. Brother No problems noted. Brother No problems noted. Brother No problems noted. Social History Smoking/Tobacco Use Status: Current every day Tobacco Type: cigarettes Smoking packs per day: 1 Smoking cigarettes per day: 20.0 Tobacco: How many years used: 52 Quit status: has quit before Second Hand Exposure: Yes (As a child) Smoking risk assessment performed?: Yes Alcohol Intake: current Alcohol Intake frequency: 0-2 drinks per day Alcohol type: wine Drug use: Never Substance use type: does not use Adopted: No Caregiver/Support person: No Foster care: No Household members: significant other and children Housing: house Number of Children: 1 number of grandchildren: 10 Communication Needs: None Education Level: vocational Do you need help understanding health information?: Often 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 Pets and animals: Yes (3 cats; chicken) Pets and animals: cat(s) and farm animals Sexually active: No Do you think of yourself as: straight/heterosexual Current gender identity: male What is your relationship status?: living with partner How often do you talk on the phone with friends or family?: twice per week How often do you get together with friends or relatives?: once per week Do you belong to any clubs or organized social groups?: no Panel score (0-1 are the most socially isolated patients): 2 What type of physical activity do you participate in: other Details: 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; takes care of pellets for stove Duration: 15-30 minutes/day Frequency: daily Sandie/Taoist: Roman Catholic Special sandie needs: No Seatbelt use: always Helmet use: No (N/A - no activities that require this) Drive intox or ride w/intox freight delivery driver: No Working smoke detector in home: Yes Carbon monox detector in home: Yes Do you feel safe at home: Yes Do you feel safe in your relationship?: Yes Readmission Within the Past 30 Days Yes or No: No
[2024-10-28] MEDS: Losartan 25 MG TAB PO (09:25)
[2024-10-28] MEDS: Apixaban 5 MG TAB PO (09:25)
[2024-10-28] MEDS: Normal Saline Flush 10 ML SYR IVP (09:25)
--- NOTE | 2024-10-28 10:22 | PDOC.CMDIS ---
LACE Index Scoring Tool Questions: Length of Stay (in days): 1 Was the patient admitted via the E.D.?: Yes E.D. Visits: 1 Answers: Total Score: 5 Risk of Readmission: Low Risk Care Management Discharge Plan Reason for Hospitalization: Cellulitis, LLE Discharge Plan: Parviz will discharge home today with a plan to follow up with community providers. Parviz will transport via private vehicle. Patient/Family Education Needs: Review of discharge instructions, activity, limitations, and plan of care. Discuss Ask Me Three.
--- NOTE | 2024-10-28 10:28 | W.PM.DS.N ---
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: Status: Acute Asessment and Plan: Home regimen apixaban, continue History of multiple unprovoked DVTs (3) Venous insufficiency of both lower extremities: Status: Acute Asessment and Plan: Chronic, has seen [facility] vascular surgery in 2020 (4) Essential hypertension: Status: Acute Asessment and Plan: Continue home losartan, HCTZ Discharge Plan Disposition Patient Disposition: Home Condition: Improving Discharge Details Reason For Visit: Cellulitis, LLE Admit Date/Time: 10/27/24 12:39 Admit Provider: Lukas Arenas Attending Provider: Lukas Arenas Primary Care Provider: Frank Funk Recommendations for Follow Up Recommended tests to be ordered by follow up provider: Parviz Elise is a 69 year old man presenting October 27 with left lower leg swelling, redness and pain, 8 days after starting outpatient antibiotic treatment (keflex). He was admitted for IV antibiotics and improved significantly overnight. Safe to discharge home on bactrim. Will follow cultures. Home Meds and New Rx's Prescriptions: New sulfamethoxazole-trimethoprim [Bactrim DS] 800-160 mg tablet 1 tab PO Q12H Qty: 14 0RF Continued hydrochlorothiazide 25 mg tablet 25 mg PO DAILY Qty: 90 3RF All Day Allergy (cetirizine) 10 mg capsule 10 mg PO DAILY PRN (Reason: itching) Qty: 30 0RF losartan 25 mg tablet 25 mg PO DAILY Qty: 90 3RF Eliquis 5 mg tablet 5 mg PO BID Qty: 180 3RF Rx Instructions: 5 mg twice daily to prevent clots, due to unprovoked DVT Discontinued bacitracin zinc [Antibiotic (bacitracin zinc)] 500 unit/gram ointment 1 applic topical BID 10 Days Qty: 14 1RF cephalexin 500 mg capsule 500 mg PO Q12H 10 Days Qty: 20 0RF aspirin [Adult Aspirin Regimen] 81 mg tablet,delayed release (DR/EC) 81 mg PO DAILY ciprofloxacin HCl 500 mg tablet 500 mg PO BID Qty: 60 6RF Discharge Instructions Stand Alone Forms: Nursing Discharge Form Referrals: Frank Funk DO [Primary Care Provider, Medicine] - 11/18/24 3:00 pm Activity:: Activity as Tolerated Equipment/Supplies:: No Equipment Needed Diet:: As Tolerated Discharge Orders Discharge Orders: Discharge Order (Routine); Ordered 10/28/24 Ordered By: Lukas Arenas Discharge Data Discharge Date/Time-TO BE ENTERED AT DEPARTURE: 10/28/24 11:52 DS: Summary Time Spent with Patient providing and/or coordinating discharge services: Less than 30 minutes Status at Discharge Functional status at discharge: independent ambulation Overall status at discharge: patient is progressing back to baseline Mental Status: mental status grossly normal Speech and Movement: speech and movement normal Mood: congruent mood Affect: normal affect Exam Narrative Exam Narrative: General: This is a pleasant man in mild distress due to leg pain HEENT: Normocephalic, atraumatic CV: RRR Resp: CTAB Abd: NTND +NBS MSK: BLE with stigmata of venous stasis. LLE with circumferential erythema, not erysipeloid, improved. Psych Mental Status: mental status grossly normal Speech and Movement: speech and movement normal Mood: congruent mood Affect: normal affect DS: Data Vitals/I&O Vitals and I&O: Vital Signs Temperature 36.3 C L 10/28/24 07:26 Temperature Source Temporal Artery Scan 10/28/24 07:26 Pulse 75 10/28/24 07:26 Pulse Rhythm Regular 10/27/24 17:28 Pulse Strength Normal 10/27/24 16:16 Respiratory Rate 16 10/28/24 07:26 Respiratory Effort Normal, Non-Labored 10/27/24 17:28 Respiratory Depth Normal 10/27/24 17:28 Respiratory Pattern Normal 10/27/24 17:28 Blood Pressure 130/83 10/28/24 07:26 Blood Pressure Mean 98 10/28/24 07:26 Blood Pressure Position Sitting 10/27/24 11:50 Pulse Oximetry 92 10/28/24 07:26 Oxygen Delivery Method Room Air 10/28/24 07:26 Oxygen Flow Rate 0 10/28/24 07:26 Pain Level 0 10/28/24 07:26 Intake & Output 10/27/24 10/27/24 10/28/24 11:59 23:59 11:59 Intake Total 1600 / 1600 500 / 500 Balance 1600 / 1600 500 / 500 Weight 81.647 kg 84.2 kg 85.5 kg Intake: IV 1600 / 1600 100 / 100 Oral 400 / 400 Other: Urine Appearance Clear Comment void x 3 t/o night Data Completed and Pending Labs on day of discharge: Labs from last 24 hours 10/28/24 10/28/24 10/27/24 16:00 06:36 11:08 WBC 3.81 L 4.61 RBC 4.33 L 4.95 Hgb 15.8 17.5 Hct 44.8 51.0 H MCV 104 H 103 H MCH 36.5 H 35.4 H MCHC 35.3 34.3 RDW 12.2 12.3 Plt Count 185 219 MPV 9.5 8.9 Immature Gran % 0.2 Neutrophils % 59.3 Lymphocytes % 25.8 Monocytes % 10.4 Eosinophils % 3.0 Basophils % 1.3 Nucleated RBC % 0.0 Absolute Neutrophils 2.73 Absolute Lymphocytes 1.19 L Absolute Monocytes 0.48 Absolute Eosinophils 0.14 Absolute Basophils 0.06 ESR 16 PT 10.8 INR 1.1 VBG Lactate 1.3 Sodium 139 139 Potassium 3.3 L 4.1 Chloride 103 99 Carbon Dioxide 30.3 31.0 Anion Gap 5.7 9.0 BUN 19 H 18 Creatinine 0.8 0.9 Est GFR (CKD-EPI 2020) 94.62 91.31 Glucose 97 103 Calcium 8.8 9.6 Magnesium 1.9 2.1 Total Bilirubin 1.0 0.7 AST 20 31 ALT 20 25 Alkaline Phosphatase 87 110 C-Reactive Protein 0.61 H Total Protein 6.6 8.2 Albumin 3.0 L 3.7 Procalcitonin < 0.10 Random Vancomycin Pending 10/27/24 11:40 Blood Blood Culture - Pending 10/27/24 11:08 Blood Blood Culture - Pending Preliminary micro results at discharge 10/27/24 11:40 Blood Blood Culture - Pending 10/27/24 11:08 Blood Blood Culture - Pending [facility] All Active Problems (Updated 10/29/24 @ 00:03 by LIBBY THOMPSON) Cellulitis of left leg (Acute) 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 (Acute) Tubular adenoma of colon (Acute ~01/2024) Blood in stool (Acute) Tendinopathy of both shoulders (Acute) Fatigue (Acute) Protein calorie malnutrition (Acute) Muscle atrophy (Acute) Muscle weakness (Acute) Diverticulitis of intestine with abscess without bleeding (Acute) Tobacco abuse, in remission (Acute) Alcohol abuse, in remission (Acute) Venous insufficiency of left lower extremity (Acute) Venous stasis (Acute) Atherosclerosis of arteries (Acute) Fatty liver disease, nonalcoholic (Acute) Coronary artery calcification seen on CAT scan (Acute) Venous insufficiency of both lower extremities (Acute) Lesion of liver (Acute) Bowel wall thickening (Acute) Colovesical fistula (Acute) Chronic from colovesical fistula Psoriasis (Chronic) 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 Phlebotomy (remove 500 mL blood) weekly until Hgb <12-13 or ferritin <100, then recheck every 3 months once at goal (see 08/18/14 [facility] Hematology note); 08/2015 chk Ferritin monthly Essential hypertension (Acute 07/04/14) HX: nursing home anticoagulant use (Acute 12/31/16) Apixaban following DVT 09/22/16 R femoral Carotid occlusion, right (Acute 03/28/07) R carotid occluded per hospital [place] 03/2007 Candidate for statin therapy due to risk of future cardiovascular event (Acute 07/28/15) 07/28/15 labwork: 10-year ASCVD risk = ~14% --> sent letter to pt recommending we discuss cholesterol medication at f/u Atrial septal aneurysm (Acute 03/31/07) Medical History (Updated 10/29/24 @ 00:03 by LIBBY THOMPSON) UTI (urinary tract infection) Venous stasis dermatitis 03/01/2024 - cleared by Dr Espinoza Severe sepsis Dehydration LUCILA (acute kidney injury) Hypokalemia Tobacco use disorder (07/28/15) 1 PPD since age 14 Tobacco dependence Hypoxemia Acute hypoxic respiratory failure ETOH abuse Alcohol dependence, daily use Hypotension Peripheral edema (07/04/14) Acute deep vein thrombosis (DVT) of femoral vein of right lower extremity (09/26/16) Calculus of kidney (07/14/10) Hypertension Hemochromatosis Surgical History (Updated 04/23/24 @ 11:41 by Mary Hogan RN) H/O colonoscopy (02/13/24) Dr Addison Arthroplasty of knee (10/19/08) [place], [place] Patient had a knee arthroscopy not an arthroplasty Family History Mother , Stroke at age 75. Stroke Father , Liver Disease at age 68. No problems noted. Sister No problems noted. Sister No problems noted. Brother , motor cycle accident at age 20. No problems noted. Brother No problems noted. Brother No problems noted. Brother No problems noted. Social History Smoking/Tobacco Use Status: Current every day Tobacco Type: cigarettes Smoking packs per day: 1 Smoking cigarettes per day: 20.0 Tobacco: How many years used: 52 Quit status: has quit before Second Hand Exposure: Yes (As a child) Smoking risk assessment performed?: Yes Alcohol Intake: current Alcohol Intake frequency: 0-2 drinks per day Alcohol type: wine Drug use: Never Substance use type: does not use Adopted: No Caregiver/Support person: No Foster care: No Household members: significant other and children Housing: house Number of Children: 1 number of grandchildren: 10 Communication Needs: None Education Level: vocational Do you need help understanding health information?: Often 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 Pets and animals: Yes (3 cats; chicken) Pets and animals: cat(s) and farm animals Sexually active: No Do you think of yourself as: straight/heterosexual Current gender identity: male What is your relationship status?: living with partner How often do you talk on the phone with friends or family?: twice per week How often do you get together with friends or relatives?: once per week Do you belong to any clubs or organized social groups?: no Panel score (0-1 are the most socially isolated patients): 2 What type of physical activity do you participate in: other Details: 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; takes care of pellets for stove Duration: 15-30 minutes/day Frequency: daily Sandie/Yazdanism: Pentecostalism Special sandie needs: No Seatbelt use: always Helmet use: No (N/A - no activities that require this) Drive intox or ride w/intox ambulance driver: No Working smoke detector in home: Yes Carbon monox detector in home: Yes Do you feel safe at home: Yes Do you feel safe in your relationship?: Yes Time Spent with Patient Time Spent with Patient: <45 minutes Time was spent: preparing to see the patient(eg.review tests), obtaining and/or reviewing separately otained hiistory, ordering medications,tests, procedures, referring, communicating with other health certified social workers in health care, indepentently interpreting results, counseling the patient and care coordination
== END 2024-10-28 11:52 | disposition home or self-care (01) ==
LOC: ER 14:15 → MS 17:08
PROVIDERS: Admitting Provider Family Medicine; Emergency Provider Emergency Medicine; PCP Family Medicine; Responsible Provider Family Medicine; Visit Provider Family Medicine
DX: L03.116 Cellulitis of left lower limb (principal); I87.2 Venous insufficiency (chronic) (peripheral); I10 Essential (primary) hypertension; Z79.01 Long term (current) use of anticoagulants; R00.0 Tachycardia, unspecified; K57.30 Diverticulosis of large intestine without perforation or abscess without bleeding; I25.10 Atherosclerotic heart disease of native coronary artery without angina pectoris; K75.81 Nonalcoholic steatohepatitis (NASH); E03.9 Hypothyroidism, unspecified; F17.210 Nicotine dependence, cigarettes, uncomplicated; L40.9 Psoriasis, unspecified; Z86.718 Personal history of other venous thrombosis and embolism; Z79.899 Other long term (current) drug therapy
CPT/HCPCS: 00123; 36415; 80053; 84145; 85027; 85652; 87040; 96361; 96365; 96366; 96367; 99285; 80202; 83605; 83735; 85025; 85610; 86140; 93971; 99222; 99238; G0378; J0692; J3373

== ENCOUNTER 2024-11-02 15:34 | Emergency (ER) | payer MEDICARE, SELFPAY ==
[2024-11-02] VITALS (7 sets, daily range): BP systolic 106–133; BP diastolic 72–75; PULSE 75–98; RESP 16–21; TEMP 36.6–36.9; O2SAT 90–98
--- NOTE | 2024-11-02 17:06 | W.ED.GENAD ---
Discharge Plan Disposition Patient Disposition: Home Condition: Stable Discharge Details Clinical Impression: Cellulitis of left lower leg Primary Care Provider: Frank Funk ED Provider: Luis Martinez Home Meds and New Rx's Prescriptions: New linezolid 600 mg tablet 600 mg PO Q12H 10 Days Qty: 20 0RF Continued hydrochlorothiazide 25 mg tablet 25 mg PO DAILY Qty: 90 3RF All Day Allergy (cetirizine) 10 mg capsule 10 mg PO DAILY PRN (Reason: itching) Qty: 30 0RF losartan 25 mg tablet 25 mg PO DAILY Qty: 90 3RF Eliquis 5 mg tablet 5 mg PO BID Qty: 180 3RF Rx Instructions: 5 mg twice daily to prevent clots, due to unprovoked DVT Discontinued sulfamethoxazole-trimethoprim [Bactrim DS] 800-160 mg tablet 1 tab PO Q12H Qty: 14 0RF Discharge Instructions Instructions: Linezolid, Cellulitis (Skin Infection), Adult ED Additional Instructions: You were seen in the emergency department for your cellulitis of your left leg, you were admitted for this and discharged 4 days ago, you reported improvement on your IV antibiotics but has been static and slight worsening since discharge on p.o. Bactrim. Please discontinue p.o. Bactrim and start the p.o. linezolid I have sent to your pharmacy, take the pill be sent home with you before bed tonight. Follow-up with your primary care appointment tomorrow, have them make a short-term follow-up appointment for you, you have no signs of sepsis on workup today so it is reasonable for discharge, we did discuss being admitted but engaged in shared decision making that it was fine with your close follow-up to trial a different antibiotic for your cellulitis. Referrals: Frank Funk DO [Primary Care Provider, Medicine] Discharge Data Discharge Date/Time-TO BE ENTERED AT DEPARTURE: 11/02/24 20:47 HPI General Date/Time Provider Initiated Documentation: 11/02/24 15:39. HPI Narrative: 69 year-old male presents to ED today by POV/ambulating with a chief complaint of L leg cellulitis, has been treated in-patient and was transitioned to Bactrim, but now having worsening with onset over the past few days. Quality described as redness that was above the knee, retreated well below the knee, and is now back up to the inferior knee, diffuse erythema and tenderness, no radiation to fever, red streaking, nausea/vomiting, numbness distally, thigh swelling. Severity is described as moderate 4/10. Palliating factors include oral bactrim without relief. Provoking factors include nothing specific. Patient is anticoagulated on Eliquis. Related Data Home Medications ?Medication ?Instructions ?Recorded ?Confirmed losartan 25 mg tablet 25 mg PO DAILY #90 tabs 08/29/23 11/03/24 apixaban 5 mg tablet (Eliquis) 5 mg PO BID #180 tabs 03/09/24 11/03/24 cetirizine 10 mg capsule (All Day 10 mg PO DAILY PRN itching #30 caps 10/19/24 11/03/24 Allergy (cetirizine)) hydrochlorothiazide 25 mg tablet 25 mg PO DAILY #90 tabs 10/19/24 11/03/24 linezolid 600 mg tablet 600 mg PO Q12H 10 days #20 tabs 11/02/24 11/03/24 Previous Rx's ?Medication ?Instructions ?Recorded losartan 25 mg tablet 25 mg PO DAILY #90 tabs 08/29/23 apixaban 5 mg tablet (Eliquis) 5 mg PO BID #180 tabs 03/09/24 cetirizine 10 mg capsule (All Day 10 mg PO DAILY PRN itching #30 caps 10/19/24 Allergy (cetirizine)) hydrochlorothiazide 25 mg tablet 25 mg PO DAILY #90 tabs 10/19/24 linezolid 600 mg tablet 600 mg PO Q12H 10 days #20 tabs 11/02/24 Allergies Allergy/AdvReac Type Severity Reaction Status Date / Time levofloxacin Allergy Severe causes Verified 11/03/24 12:57 severe pain everywhere lisinopril AdvReac Intermediate COUGH Verified 11/03/24 12:57 terbinafine (From Lamisil) AdvReac Intermediate weight Verified 11/03/24 12:57 loss, loss of taste General Stated Complaint: Cellulitis MARIA EUGENIA: 3 Review of Systems All systems reviewed & are unremarkable except as noted in HPI and below Exam Narrative Exam Narrative: GENERAL APPEARANCE: Well-nourished, non-toxic, awake and alert, atraumatic, no acute distress. SKIN: Warm, pink, dry, rojas erythema from the tibial tuberosity to just above the ankle, no open lesions or drainage, neurovascularly intact in the left foot with regular dorsalis pedis pulse, brisk capillary refill, no pain with passive range of motion at the knee or ankle, no lymphadenitis HEAD: Normocephalic, atraumatic, normal hair distribution for gender/age. EYES: Normal conjunctiva, no exudates on lids/lashes. ENT: Nares patent, no circumoral cyanosis, no facial swelling NECK: Supple, trachea midline, painless cervical ROM. LUNGS/CHEST: Non-labored respirations, normal A/P diameter, symmetrical expansion, no chest wall deformity HEART (CV/PV): Regular rate, L dorsalis pedis pulse 2+, brisk capillary refill L foot, no peripheral edema save for his mild swelling of ongoing cellulitis, no JVD. ABDOMEN: Soft, non-distended, no guarding. MSK: Normal ROM, no swelling/deformity to bilateral UEs or LEs, moving all extremities without weakness, no cyanosis, spine midline without tenderness, normal curvature. NEURO: Mental Status AAOx4 - alert to person, place, time, events No facial droop, no forehead involvement. Motor: No focal weakness - strength 5/5 in bilateral UEs and LEs, proximal and distal, symmetric. Sensory: sensation intact to light touch globally. Gait normal: patient ambulated without ataxia into ED room. PSYCH: euthymic, cooperative, pleasant, appropriate speech Course Vital Signs Vital signs: Vital Signs Temperature 36.9 C 11/02/24 15:37 Pulse 98 H 11/02/24 15:37 Respiratory Rate 19 11/02/24 15:37 Blood Pressure 106/74 11/02/24 15:37 Pulse Oximetry 90 L 11/02/24 15:37 Temperature 36.9 C 11/02/24 15:37 Temperature Source Oral 11/02/24 15:37 Pulse 98 H 11/02/24 15:37 Respiratory Rate 19 11/02/24 15:37 Blood Pressure 106/74 11/02/24 15:37 Blood Pressure Position Sitting 11/02/24 15:37 Pulse Oximetry 90 L 11/02/24 15:37 Oxygen Delivery Method Room Air 11/02/24 15:37 Oxygen Flow Rate 0 11/02/24 15:37 Pain Level 4 11/02/24 15:37 Medical Decision Making This dictation utilizes [id number] dictation software and may contain unedited grammatical errors. 69 year-old male presents to ED today by POV/ambulating with a chief complaint of L leg cellulitis, has been treated in-patient and was transitioned to Bactrim, but now having worsening with onset over the past few days. Quality described as redness that was above the knee, retreated well below the knee, and is now back up to the inferior knee, diffuse erythema and tenderness, no radiation to fever, red streaking, nausea/vomiting, numbness distally, thigh swelling. Severity is described as moderate 4/10. Palliating factors include oral bactrim without relief. Provoking factors include nothing specific. Patients' medical history: Venous stasis dermatitis, EtOH abuse, peripheral edema, history of DVT, status post CVA. Family and social history: Noncontributory. Pertinent exam findings / vital signs include rojas erythema from the tibial tuberosity to just above the ankle, no open lesions or drainage, neurovascularly intact in the left foot with regular dorsalis pedis pulse, brisk capillary refill, no pain with passive range of motion at the knee or ankle, no lymphadenitis, nontoxic and afebrile Differential / pathologies of concern include cellulitis, unlikely DVT, not abscess. Diagnostic studies of: - CBC, CMP, lactate, CRP, blood cultures. - CBC shows no leukocytosis, no anemia - CMP is unremarkable with baseline elevated creatinine - Lactate 1.1 - CRP mildly elevated 1.53 - Blood cultures pending Interventions of: - Given IV cefepime and vancomycin as he was on these during his recent inpatient stay, discussed with hospitalist due to bounce back, offered observation admission for the patient but he is stable in the hospital is full he opted to return home with a trial of a different antibiotic, Rx for linezolid. ED Course/Assessment/Plan: 69-year-old male presents with outpatient treatment failure for ongoing cellulitis in the setting of chronic stasis dermatitis of his left lower extremity, he is failing outpatient Bactrim after being transitioned to from IV cefepime and vancomycin during inpatient stay, I discussed with the hospitalist will be proposed strict return criteria but a trial of linezolid p.o, the patient was comfortable with this disposition and he will follow-up with his primary care or return here for any worsening. Findings not consistent with neurovascular compromise, lymphadenitis, sepsis. Disposition of cellulitis of left lower leg. Patient verbalized understanding of the plan and return to ED criteria and engaged in shared decision making. Medical Records Medical records reviewed: Yes I reviewed the patient's medical records. Lab Data Lab results reviewed: Yes I reviewed the patient's lab results. Labs: 11/02/24 18:48 Blood Blood Culture - Preliminary NO GROWTH 48 HOURS 11/02/24 18:30 Blood Blood Culture - Preliminary NO GROWTH 48 HOURS Laboratory Tests Range/Units 11/02/24 18:22 WBC (4.4-10.8) 10^3/uL 5.29 RBC (4.36-5.78) 10^6/uL 4.62 Hgb (13.5-17.5) g/dL 16.7 Hct (40.0-50.0) % 47.8 MCV (80-95) fL 104 H MCH (27.0-33.0) pg 36.1 H MCHC (32.0-36.0) % 34.9 RDW (11.8-14.1) % 12.4 Plt Count (130-400) 10^3/uL 187 MPV (8.0-11.0) fL 9.1 Immature Gran % % 0.2 Neutrophils % % 61.6 Lymphocytes % % 19.3 Monocytes % % 15.3 Eosinophils % % 2.5 Basophils % % 1.1 Nucleated RBC % (0.0-0.3) % 0.0 Absolute Neutrophils (1.2-6.7) 10^3/uL 3.26 Absolute Lymphocytes (1.2-3.4) 10^3/uL 1.02 L Absolute Monocytes (0.1-0.8) 10^3/uL 0.81 H Absolute Eosinophils (0.0-0.7) 10^3/uL 0.13 Absolute Basophils (0.0-0.2) 10^3/uL 0.06 VBG Lactate (<or=2.0) mmol/L 1.1 Sodium (136-145) mmol/L 137 Potassium (3.5-5.1) mmol/L 4.1 Chloride (98-107) mmol/L 100 Carbon Dioxide (21.0-32.0) mmol/L 29.6 Anion Gap (3-11) mmol/L 7.4 BUN (7-18) mg/dL 24 H Creatinine (0.70-1.30) mg/dL 1.4 H Est GFR (CKD-EPI 2020) (mL/min/1.73m2) 53.74 Glucose (74-106) mg/dL 86 Calcium (8.5-10.1) mg/dL 9.3 Total Bilirubin (0.2-1.0) mg/dL 0.4 AST (15-37) U/L 20 ALT (16-63) U/L 23 Alkaline Phosphatase (46-116) U/L 115 C-Reactive Protein (<or=0.5) mg/dL 1.53 H Total Protein (6.4-8.2) g/dL 7.8 Albumin (3.4-5.0) g/dL 3.7 PFSH All Active Problems (Updated 11/03/24 @ 00:03 by LIBBY THOMPSON) Cellulitis of left lower leg (Acute) Cellulitis of left leg (Acute) 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 (Acute) Tubular adenoma of colon (Acute ~01/2024) Blood in stool (Acute) Tendinopathy of both shoulders (Acute) Fatigue (Acute) Protein calorie malnutrition (Acute) Muscle atrophy (Acute) Muscle weakness (Acute) Diverticulitis of intestine with abscess without bleeding (Acute) Tobacco abuse, in remission (Acute) Alcohol abuse, in remission (Acute) Venous insufficiency of left lower extremity (Acute) Venous stasis (Acute) Atherosclerosis of arteries (Acute) Fatty liver disease, nonalcoholic (Acute) Coronary artery calcification seen on CAT scan (Acute) Venous insufficiency of both lower extremities (Acute) Lesion of liver (Acute) Bowel wall thickening (Acute) Colovesical fistula (Acute) Chronic from colovesical fistula Psoriasis (Chronic) 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 Phlebotomy (remove 500 mL blood) weekly until Hgb <12-13 or ferritin <100, then recheck every 3 months once at goal (see 08/18/14 [facility] – [place] Hematology note); 08/2015 chk Ferritin monthly Essential hypertension (Acute 07/04/14) HX: 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 (Acute 12/31/16) Apixaban following DVT 09/22/16 R femoral Carotid occlusion, right (Acute 03/28/07) R carotid occluded per hospital MD 03/2007 Candidate for statin therapy due to risk of future cardiovascular event (Acute 07/28/15) 07/28/15 labwork: 10-year ASCVD risk = ~14% --> sent letter to pt recommending we discuss cholesterol medication at f/u Atrial septal aneurysm (Acute 03/31/07) Medical History (Updated 11/03/24 @ 00:03 by LIBBY THOMPSON) UTI (urinary tract infection) Venous stasis dermatitis 03/01/2024 - cleared by Dr Espinoza Severe sepsis Dehydration LUCILA (acute kidney injury) Hypokalemia Tobacco use disorder (07/28/15) 1 PPD since age 14 Tobacco dependence Hypoxemia Acute hypoxic respiratory failure ETOH abuse Alcohol dependence, daily use Hypotension Peripheral edema (07/04/14) Acute deep vein thrombosis (DVT) of femoral vein of right lower extremity (09/26/16) Calculus of kidney (07/14/10) Hypertension Hemochromatosis Surgical History (Updated 04/23/24 @ 11:41 by Mary Hogan RN) H/O colonoscopy (02/13/24) Dr Addison Arthroplasty of knee (10/19/08) [place], [place] Patient had a knee arthroscopy not an arthroplasty Family History Mother , Stroke at age 75. Stroke Father , Liver Disease at age 68. No problems noted. Sister No problems noted. Sister No problems noted. Brother , motor cycle accident at age 20. No problems noted. Brother No problems noted. Brother No problems noted. Brother No problems noted. Social History Smoking/Tobacco Use Status: Current every day Tobacco Type: cigarettes Smoking packs per day: 1 Smoking cigarettes per day: 20.0 Tobacco: How many years used: 52 Quit status: has quit before Second Hand Exposure: Yes (As a child) Smoking risk assessment performed?: Yes Alcohol Intake: current Alcohol Intake frequency: 0-2 drinks per day Alcohol type: wine Drug use: Never Substance use type: does not use Adopted: No Caregiver/Support person: No Foster care: No Household members: significant other and children Housing: house Number of Children: 1 number of grandchildren: 10 Communication Needs: None Education Level: vocational Do you need help understanding health information?: Often 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 Pets and animals: Yes (3 cats; chicken) Pets and animals: cat(s) and farm animals Sexually active: No Do you think of yourself as: straight/heterosexual Current gender identity: male What is your relationship status?: living with partner How often do you talk on the phone with friends or family?: twice per week How often do you get together with friends or relatives?: once per week Do you belong to any clubs or organized social groups?: no Panel score (0-1 are the most socially isolated patients): 2 What type of physical activity do you participate in: other Details: 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; takes care of pellets for stove Duration: 15-30 minutes/day Frequency: daily Sandie/Shinto: Scientologist Special sandie needs: No Seatbelt use: always Helmet use: No (N/A - no activities that require this) Drive intox or ride w/intox driver supervisor: No Working smoke detector in home: Yes Carbon monox detector in home: Yes Do you feel safe at home: Yes Do you feel safe in your relationship?: Yes
[2024-11-02 18:30] LABS: Abs Immature Grans 0.01 10^3/uL (0.0-0.06); HCT 47.8 % (40.0-50.0); HGB 16.7 g/dL (13.5-17.5); Immature Grans % 0.2 %; MCH 36.1 pg (27.0-33.0); MCHC 34.9 % (32.0-36.0); MCV 104 fL (80-95); MPV 9.1 fL (8.0-11.0); Platelet Count 187 10^3/uL (130-400); RBC 4.62 10^6/uL (4.36-5.78); RDW 12.4 % (11.8-14.1); RDW-SD 47.0 fL; WBC 5.29 10^3/uL (4.4-10.8)
[2024-11-02] MEDS: Normal Saline 1,000 ML 250 ML IV (18:33)
[2024-11-02] MEDS: CEFEPIME 2 GM in Normal Saline 100 ML IVPB (18:44)
[2024-11-02 18:46] LABS: ALT 23 U/L (16-63); AST 20 U/L (15-37); Albumin 3.7 g/dL (3.4-5.0); Alkaline Phosphatase 115 U/L (46-116); Anion Gap 7.4 mmol/L (3-11); BUN 24 mg/dL (7-18); Bilirubin, Total 0.4 mg/dL (0.2-1.0); C-Reactive Protein 1.53 mg/dL (<or=0.5); CO2 29.6 mmol/L (21.0-32.0); Calcium 9.3 mg/dL (8.5-10.1); Chloride 100 mmol/L (98-107); Estimated GFR 53.74 (mL/min/1.73m2); Glucose 86 mg/dL (74-106); Potassium 4.1 mmol/L (3.5-5.1); Sodium 137 mmol/L (136-145); Total Protein 7.8 g/dL (6.4-8.2)
[2024-11-02] MEDS: Linezolid 600 MG TAB PO (20:40)
== END 2024-11-02 20:47 | disposition home or self-care (01) ==
PROVIDERS: Emergency Provider Physician Assistant; PCP Family Medicine
DX: L03.116 Cellulitis of left lower limb (principal); I10 Essential (primary) hypertension; F17.210 Nicotine dependence, cigarettes, uncomplicated; Z86.73 Personal history of transient ischemic attack (TIA), and cerebral infarction without residual deficits; Z86.718 Personal history of other venous thrombosis and embolism; Z79.01 Long term (current) use of anticoagulants
CPT/HCPCS: 80053; 87040; 96374; 99284; 83605; 85025; 86140; 99283; J0692

== ENCOUNTER 2024-11-07 08:24 | Emergency (ER) | payer MEDICARE, SELFPAY ==
[2024-11-07] VITALS (17 sets, daily range): BP systolic 91–121; BP diastolic 61–85; PULSE 73–95; RESP 14–23; TEMP 37.1; O2SAT 86–97
--- NOTE | 2024-11-07 08:45 | DI.CT_ITS ---
Exam(s) CT CHEST/ABD/PEL W EXAM: CT CHEST/ABD/PEL W CLINICAL HISTORY: diffuse pain throughout TECHNIQUE: Imaging Protocol: Axial computed tomography images with coronal and sagittal reformatted images were created and reviewed. Lung Computer Aided Detection (CAD) was utilized. CONTRAST MATERIAL: Intravenous: Omnipaque 350 contrast volume:100 mL Oral: yes / no COMPARISON: CT CT ABDOMEN PELVIS W from 03/08/2024 FINDINGS: CHEST: Tracheobronchial tree: Patent where visualized. No evidence of bronchiectasis. Pulmonary parenchyma: There are few tiny small nodules in the left upper and left lower lobes. The largest is in the left lower lobe and measures 4 mm (series 12, image 100). Emphysematous changes are seen in the lungs. Calcified granulomas are present. There is atelectasis in the right lower lobe. There is an area of scarring or atelectasis in the left lingula. No focal consolidating infiltrates are present. Visualized thyroid gland: Unremarkable. Mediastinum and Debbie: No dominant adenopathy or fluid collection. The esophagus is unremarkable. There is a tiny hiatal hernia. Pleura: No effusion or pneumothorax. Heart: The heart is not dilated. Three vessel coronary artery calcification is present. No pericardial effusion. Pulmonary arteries: Due to the timing of the bolus, there is suboptimal opacification of the pulmonary arteries for evaluation of pulmonary emboli. Aorta: The ascending thoracic aorta measures 4.3 x 4.5 cm. Atherosclerotic calcification is present. Lymph nodes: Within normal limits. Soft tissues: Unremarkable. Bones:Within normal limits for the patient's age. There are old healed rib fracture deformities. Thoracic and lumbar spine: Age-appropriate degenerative changes are present throughout the thoracic and lumbar spine. There are no acute fractures or subluxations present. There is grade 1 anterolisthesis of L5 on S1. ABDOMEN: Liver: Normal density. No measurable mass. Portal, Superior Mesenteric, and Splenic Veins: Unremarkable. Gallbladder and Biliary Tract: No radiodense calculus or dilation. Pancreas: Normal density, no abnormal calcifications or inflammatory process. Spleen: Normal. Adrenals: No masses seen. Kidneys: Normal size, contour and axis. No radiodense stones or obstructive uropathy. There is a tiny hypodensity in each kidney which is too small for further characterization but likely reflect small cysts. No follow-up is recommended. Abdominal Aorta: Abdominal portion non-dilated. Atherosclerotic calcification is present. Bowel: Anastomotic sutures are seen in the sigmoid colon. There is no evidence of bowel wall thickening or obstruction. The stomach is incompletely distended limiting evaluation. Appendix is unremarkable. Peritoneal Cavity: No ascites, collection or mesenteric inflammatory response. No free air. Lymph Nodes: Within normal limits. Bones: Within normal limits for the patient's age. Soft Tissues: There are fat containing bilateral inguinal hernias. There is a small fat containing umbilical hernia. PELVIS: Bladder: Symmetric distention, no gross wall thickening. Reproductive Organs: Unremarkable as visualized. Lymph Nodes: Within normal limits. Bones: Within normal limits. IMPRESSION: 1. No acute pulmonary process is present. 2. There are few tiny noncalcified pulmonary nodules present. The largest measures 4 mm. Solid nodules smaller than 6 mm do not require routine follow-up in all patients with high clinical risk; however, some nodules smaller than 6 mm with suspicious morphology, upper lobe location, or both may warrant follow-up at 12 months (grade 2A; weak recommendation, high-quality evidence). (Latha et al., 2017) Single solid noncalcified nodules. ???Solid nodules smaller than 6 mm (those 5 mm or smaller) do not require routine follow-up in patients at low risk (grade 1C; strong recommendation, low- or [id number] evidence). (Latha et al., 2017) 3. 4.3 x 4.5 cm ascending thoracic aortic aneurysm. 4. There is no acute abdominal or pelvic process. RADIATION DOSE DELIVERED: 376.92mGy.cm Total DLP DATA REPOSITORY: All CT scans at this facility are submitted to the National Radiology Data Registry (NRDR) Dose Index Registry (DIR) with the [employer] (A[employer]). RADIATION OPTIMIZATION: All CT scans at this facility use at least one of these dose optimization techniques: automated exposure control; mA and/or kV adjustment per patient size (includes targeted exams where dose is matched to clinical indication); or iterative reconstruction.
--- NOTE | 2024-11-07 08:45 | RT.EKG_ITS ---
APPROVED REPORT Exam: Resting ECG Reason for Exam: chest pain Patient Location: E HR:90 bpm ECG Measurements Heart Rate 90 AXIS SC 186 P 55 QRSd 137 QRS -41 QT 381 T 9 QTc 468 Conclusion Sinus rhythm, rate 90 RBBB, unchanged from priors No STEMI
[2024-11-07] MEDS: MORPHine 4 MG/ML SYR IVP (09:15)
[2024-11-07] MEDS: Normal Saline 500 ML IV (09:15)
[2024-11-07] MEDS: ACETAMINOPHEN 500 MG/50 ML BAG 200 MG IVPB (09:15)
[2024-11-07 09:30] LABS: Abs Immature Grans 0.02 10^3/uL (0.0-0.06); HCT 49.5 % (40.0-50.0); HGB 17.1 g/dL (13.5-17.5); Immature Grans % 0.3 %; MCH 35.7 pg (27.0-33.0); MCHC 34.5 % (32.0-36.0); MCV 103 fL (80-95); MPV 9.0 fL (8.0-11.0); Platelet Count 189 10^3/uL (130-400); RBC 4.79 10^6/uL (4.36-5.78); RDW 12.1 % (11.8-14.1); RDW-SD 46.5 fL; WBC 6.54 10^3/uL (4.4-10.8)
[2024-11-07 09:51] LABS: ALT 19 U/L (16-63); AST 16 U/L (15-37); Albumin 3.5 g/dL (3.4-5.0); Alkaline Phosphatase 92 U/L (46-116); Anion Gap 8.3 mmol/L (3-11); BUN 18 mg/dL (7-18); Bilirubin, Total 1.4 mg/dL (0.2-1.0); CO2 30.7 mmol/L (21.0-32.0); Calcium 9.5 mg/dL (8.5-10.1); Chloride 97 mmol/L (98-107); Creatine Kinase 40 U/L (39-308); Estimated GFR 80.47 (mL/min/1.73m2); Glucose 97 mg/dL (74-106); Lipase 31 U/L (<78); Potassium 3.6 mmol/L (3.5-5.1); Sodium 136 mmol/L (136-145); TSH (W/Ref FT4) 3.26 uIU/mL (0.36-3.74); Total Protein 8.0 g/dL (6.4-8.2)
[2024-11-07] MEDS: Normal Saline - Diluent 50 ML VIAL IJ (10:29)
[2024-11-07] MEDS: Omnipaque 350 MG/ML 100 ML BTL IJ (10:35)
[2024-11-07] MEDS: predniSONE 20 MG TAB 40 MG PO (12:22)
--- NOTE | 2024-11-07 14:40 | ED.GENADUL_ITS ---
Discharge Plan Disposition Patient Disposition: Home Discharge Details Clinical Impression: Myalgia, Aneurysm, thoracic aortic, Pulmonary nodule, Drug reaction Primary Care Provider: Frank Funk ED Provider: Liz Dsouza Home Meds and New Rx's Prescriptions: New doxycycline hyclate 100 mg capsule 100 mg PO BID Qty: 20 0RF prednisone 20 mg tablet 40 mg PO DAILY AM Qty: 8 0RF metaxalone 800 mg tablet 800 mg PO TID PRNQty: 10 0RF Continued hydrochlorothiazide 25 mg tablet 25 mg PO DAILY Qty: 90 3RF All Day Allergy (cetirizine) 10 mg capsule 10 mg PO DAILY PRN (Reason: itching) Qty: 30 0RF losartan 25 mg tablet 25 mg PO DAILY Qty: 90 3RF Eliquis 5 mg tablet 5 mg PO BID Qty: 180 3RF Rx Instructions: 5 mg twice daily to prevent clots, due to unprovoked DVT Discontinued linezolid 600 mg tablet 600 mg PO Q12H 10 Days Qty: 20 0RF Discharge Instructions Instructions: Muscle and Bone Pain (DC) Additional Instructions: Take the prednisone as prescribed you received a dose today do not take your next dose will tomorrow use walker with ambulation Take Tylenol 500 mg every 6 hours do not exceed 3 g of Tylenol daily you may take the Skelaxin as needed for musculoskeletal pain Discontinue the linezolid and start taking doxycycline Recheck with your doctor tomorrow Please return earlier should develop fever chills worsening pain or should any new concerns arise I am referring you to vascular surgery for a incidental finding of an aneurysm in your thoracic aorta, this will need to be followed up in outpatient setting You also have some pulmonary nodules, your doctor can follow-up on these with imaging annually Discharge Data Discharge Date/Time-TO BE ENTERED AT DEPARTURE: 11/07/24 12:26 HPI General Date/Time Provider Initiated Documentation: 11/07/24 08:25 . HPI Narrative: 69-year-old male with history of cellulitis of left lower extremity, atrial septal aneurysm, carotid occlusion, hypertension, hemochromatosis, hypothyroidism, and recent admission for cellulitis. Presenting with possible reaction to Bactrim, replaced with linezolid on 11/02/2024. Reports generalized myalgias with gradual onset of muscle pain in chest, back, and extremities. Suspects allergy to current medication due to similar past reaction. No joint pain, difficulty swallowing, rashes or lesions, headaches, stiff neck, tick bites, chest pain, or shortness of breath. Related Data Home Medications ?Medication ?Instructions ?Recorded ?Confirmed losartan 25 mg tablet 25 mg PO DAILY #90 tabs 0511/07/24 apixaban 5 mg tablet (Eliquis) 5 mg PO BID #180 tabs 1 05/09/23 11/07/24 cetirizine 10 mg capsule (All Day 10 mg PO DAILY PRN i tching #30 caps 10/19/24 11/07/24 Allergy (cetirizine)) hydrochlorothiazide 25 mg tablet 25 mg PO DAILY #90 ta bs 10/19/24 11/07/24 doxycycline hyclate 100 mg capsule 100 mg PO BID #20 c aps 11/07/24 metaxalone 800 mg tablet 800 mg PO TID PRN #10 tabs 0 11/07/24 prednisone 20 mg tablet 40 mg (2 x 20 mg) PO DAILY A M #8 11/07/24 tabs Previous Rx's ?Medication ?Instructions ?Recorded losartan 25 mg tablet 25 mg PO DAILY #90 tabs 08/19 apixaban 5 mg tablet (Eliquis) 5 mg PO BID #180 tabs 1 05/09/23 cetirizine 10 mg capsule (All Day 10 mg PO DAILY PRN i tching #30 caps 10/19/24 Allergy (cetirizine)) hydrochlorothiazide 25 mg tablet 25 mg PO DAILY #90 ta bs 10/19/24 doxycycline hyclate 100 mg capsule 100 mg PO BID #20 c aps 11/07/24 metaxalone 800 mg tablet 800 mg PO TID PRN #10 tabs 0 11/07/24 prednisone 20 mg tablet 40 mg (2 x 20 mg) PO DAILY A M #8 11/07/24 tabs Allergies Allergy/AdvReac Type Severity Reaction Status Date / Time levofloxacin Allergy Severe causes Verified 11/07/24 08:44 severe pain everywhere lisinopril AdvReac Intermediate COUGH Verified 11/07/24 08:44 terbinafine (From Lamisil) AdvReac Intermediate weight Verified 11/07/24 08:44 loss, loss of taste General Stated Complaint: Allergic MARIA EUGENIA: 3 Exam Narrative Exam Narrative: General Appearance: No acute distress. Vital signs: Within normal limits. HEENT: Within normal limits. Distal pulses intact all 4 extremities cardiac rate rhythm regular Respiratory: Within normal limits. Gastrointestinal: Abdominal tenderness. Back, Musculoskeletal: Marked difficulty with ambulation due to tenderness. Skin: Warm and dry, no rash. Neurological: Normal. Course Vital Signs Vital signs: Vital Signs Temperature 37.1 C 11/07/24 08:25 Pulse 95 H 11/07/24 08:25 Respiratory Rate 19 11/07/24 08:25 Blood Pressure 121/85 11/07/24 08:25 Pulse Oximetry 95 11/07/24 08:25 Temperature 37.1 C 11/07/24 08:25 Temperature Source Tympanic 11/07/24 08:25 Pulse 77 11/07/24 11:00 Pulse 77 11/07/24 11:00 Respiratory Rate 18 11/07/24 11:00 Respiratory Effort Labored 11/07/24 08:33 Respiratory Pattern Normal 11/07/24 08:33 Blood Pressure 110/62 11/07/24 11:00 Blood Pressure Mean 72 11/07/24 10:16 Blood Pressure Position Sitting 11/07/24 08:25 Pulse Oximetry 96 11/07/24 11:00 Oxygen Delivery Method Nasal Cannula 11/07/24 08:25 Oxygen Flow Rate 3 11/07/24 08:25 Pain Level 8 11/07/24 08:25 Lab/Test Results Lab/Test Results: Laboratory Tests Range/Units 11/07/24 09:05 WBC (4.4-10.8) 10^3/uL 6.54 RBC (4.36-5.78) 10^6/uL 4.79 Hgb (13.5-17.5) g/dL 17.1 Hct (40.0-50.0) % 49.5 MCV (80-95) fL 103 H MCH (27.0-33.0) pg 35.7 H MCHC (32.0-36.0) % 34.5 RDW (11.8-14.1) % 12.1 Plt Count (130-400) 10^3/uL 189 MPV (8.0-11.0) fL 9.0 Immature Gran % % 0.3 Neutrophils % % 72.0 Lymphocytes % % 17.0 Monocytes % % 8.6 Eosinophils % % 1.8 Basophils % % 0.3 Nucleated RBC % (0.0-0.3) % 0.0 Absolute Neutrophils (1.2-6.7) 10^3/uL 4.71 Absolute Lymphocytes (1.2-3.4) 10^3/uL 1.11 L Absolute Monocytes (0.1-0.8) 10^3/uL 0.56 Absolute Eosinophils (0.0-0.7) 10^3/uL 0.12 Absolute Basophils (0.0-0.2) 10^3/uL 0.02 Sodium (136-145) mmol/L 136 Potassium (3.5-5.1) mmol/L 3.6 Chloride (98-107) mmol/L 97 L Carbon Dioxide (21.0-32.0) mmol/L 30.7 Anion Gap (3-11) mmol/L 8.3 BUN (7-18) mg/dL 18 Creatinine (0.70-1.30) mg/dL 1.0 Est GFR (CKD-EPI 2020) (mL/min/1.73m2) 80.47 Glucose (74-106) mg/dL 97 Calcium (8.5-10.1) mg/dL 9.5 Total Bilirubin (0.2-1.0) mg/dL 1.4 H AST (15-37) U/L 16 ALT (16-63) U/L 19 Alkaline Phosphatase (46-116) U/L 92 Creatine Kinase (39-308) U/L 40 Total Protein (6.4-8.2) g/dL 8.0 Albumin (3.4-5.0) g/dL 3.5 Lipase (<78) U/L 31 TSH (0.36-3.74) uIU/mL 3.26 Medical Decision Making Laboratory Studies: CPK, CBC, and chemistry baseline. CPK negative. Imaging: CT abdomen and pelvis shows non-ruptured thoracic aortic aneurysm and multiple pulmonary nodules. Initial Assessment: 69-year-old male with history of cellulitis, atrial septal aneurysm, carotid occlusion, hypertension, hemochromatosis, hypothyroidism, and recent admission for cellulitis. Presenting with generalized myalgias, possibly due to reaction to linezolid. Differential Diagnosis: - Reaction to linezolid: Generalized myalgias, similar past reaction to antibiotic, CPK, CBC, and chemistry baseline, feeling better after Motrin and Tylenol. Discontinue linezolid, start doxycycline, order prednisone and muscle relaxant. - Thoracic aortic aneurysm: Abdominal tenderness, CT shows non-ruptured aneurysm. Referral to vascular surgery. - Multiple pulmonary nodules: CT shows multiple nodules, not all new. Close outpatient follow-up needed. - Cellulitis: Recent admission, placed on linezolid on 11/02/2024, switch to doxycycline. Close outpatient follow-up with PCP. ED Course: - CPK, CBC, and chemistry baseline. - CT abdomen and pelvis ordered, shows non-ruptured thoracic aortic aneurysm. - Motrin and Tylenol administered, patient feeling better. - Ambulatory trial performed, marked difficulty with ambulation due to tenderness, deemed safe with walker assistance at home. - Tick panel pending. Final Assessment: 69-year-old male with generalized myalgias, possibly due to reaction to linezolid. CT reveals non-ruptured thoracic aortic aneurysm and multiple pulmonary nodules. Patient feeling better after Motrin and Tylenol, ambulatory trial shows marked difficulty but safe with walker assistance. Clinical Impression: - Reaction to linezolid - Thoracic aortic aneurysm - Multiple pulmonary nodules - Cellulitis Disposition: - Discharge: Discharged home, prefers outpatient management. - Follow-Up: Close outpatient follow-up with PCP. Referral to vascular surgery. Monitor pulmonary nodules. Patient Education: Return precautions reviewed and understood. [facility] All Active Problems (Updated 11/07/24 @ 11:57 by BRIDGETT Fish) Drug reaction (Acute) Pulmonary nodule (Acute) Aneurysm, thoracic aortic (Acute) Myalgia (Acute) Cellulitis of left lower leg (Acute) Cellulitis of left leg (Acute) 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 (Acute) Tubular adenoma of colon (Acute ~01/2024) Blood in stool (Acute) Tendinopathy of both shoulders (Acute) Fatigue (Acute) Protein calorie malnutrition (Acute) Muscle atrophy (Acute) Muscle weakness (Acute) Diverticulitis of intestine with abscess without bleeding (Acute) Tobacco abuse, in remission (Acute) Alcohol abuse, in remission (Acute) Venous insufficiency of left lower extremity (Acute) Venous stasis (Acute) Atherosclerosis of arteries (Acute) Fatty liver disease, nonalcoholic (Acute) Coronary artery calcification seen on CAT scan (Acute) Venous insufficiency of both lower extremities (Acute) Lesion of liver (Acute) Bowel wall thickening (Acute) Colovesical fistula (Acute) Chronic from colovesical fistula Psoriasis (Chronic) 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 Phlebotomy (remove 500 mL blood) weekly until Hgb <12-13 or ferritin <100, then recheck every 3 months once at goal (see 08/18/14 [facility] [place] 08/2015 chk Ferritin monthly Essential hypertension (Acute 07/04/14) HX: prison anticoagulant use (Acute 12/31/16) Apixaban following DVT 09/22/16 R femoral Carotid occlusion, right (Acute 03/28/07) R carotid occluded per hospital [place] 03/2007 Candidate for statin therapy due to risk of future cardiovascular event (Acute 07/28/15) 07/28/15 labwork: 10-year ASCVD risk = ~14% --> sent letter to pt recommending we discuss cholesterol medication at f/u Atrial septal aneurysm (Acute 03/31/07) Medical History (Updated 11/07/24 @ 11:57 by BRIDGETT Fish) UTI (urinary tract infection) Venous stasis dermatitis 03/01/2024 - cleared by Dr Espinoza Severe sepsis Dehydration LUCILA (acute kidney injury) Hypokalemia Tobacco use disorder (07/28/15) 1 PPD since age 14 Tobacco dependence Hypoxemia Acute hypoxic respiratory failure ETOH abuse Alcohol dependence, daily use Hypotension Peripheral edema (07/04/14) Acute deep vein thrombosis (DVT) of femoral vein of right lower extremity (09/26/16) Calculus of kidney (07/14/10) Hypertension Hemochromatosis Surgical History (Updated 04/23/24 @ 11:41 by Mary Hogan RN) H/O colonoscopy (02/13/24) Dr Addison Arthroplasty of knee (10/19/08) [facility] Patient had a knee arthroscopy not an arthroplasty Family History Mother , Stroke at age 75. Stroke Father , Liver Disease at age 68. No problems noted. Sister No problems noted. Sister No problems noted. Brother , motor cycle accident at age 20. No problems noted. Brother No problems noted. Brother No problems noted. Brother No problems noted. Social History Smoking/Tobacco Use Status: Current every day Tobacco Type: cigarettes Smoking packs per day: 1 Smoking cigarettes per day: 20.0 Tobacco: How many years used: 52 Quit status: has quit before Second Hand Exposure: Yes (As a child) Smoking risk assessment performed?: Yes Alcohol Intake: current Alcohol Intake frequency: 0-2 drinks per day Alcohol type: wine Drug use: Never Substance use type: does not use Adopted: No Caregiver/Support person: No Foster care: No Household members: significant other and children Housing: house Number of Children: 1 number of grandchildren: 10 Communication Needs: None Education Level: vocational Do you need help understanding health information?: Often 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 Pets and animals: Yes (3 cats; chicken) Pets and animals: cat(s) and farm animals Sexually active: No Do you think of yourself as: straight/heterosexual Current gender identity: male What is your relationship status?: living with partner How often do you talk on the phone with friends or family?: twice per week How often do you get together with friends or relatives?: once per week Do you belong to any clubs or organized social groups?: no Panel score (0-1 are the most socially isolated patients): 2 What type of physical activity do you participate in: other Details: 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; takes care of pellets for stove Duration: 15-30 minutes/day Frequency: daily Sandie/Mandaeism: Islam Special sandie needs: No Seatbelt use: always Helmet use: No (N/A - no activities that require this) Drive intox or ride w/intox non emergency services ambulance driver: No Working smoke detector in home: Yes Carbon monox detector in home: Yes Do you feel safe at home: Yes Do you feel safe in your relationship?: Yes PAWSS Have you Been Recently Intoxicated or Drunk Within the Last 30 days?: No Have you Ever Experienced Previous Episodes of Alcohol Withdrawal?: No Have you ever Experienced Withdrawal Seizures?: No Have you ever Experienced Delirium Tremens(DT)s?: No Have you ever undergone Alcohol Rehabilitation Treatment (i.e, inpt ot outpatient treatment programs)?: No Have you ever Experienced Blackouts?: No Have you ever Combined Alcohol with other Downers within the last 90 days?: No Have you ever Combined Alcohol with any other Substance of Abuse during the last 90 days?: No Positive Blood Alcohol level on Presentation? [PCS.BAL]: No Evidence of Increased Autonomic Activity (i.e. HR>120, tremor, sweating, agitation, nausea)?: No Result: 0
[2024-11-08 12:20] LABS: Lyme Ab w Rflx to Lyme Confirm Negative (Negative)
[2024-11-10 15:04] LABS: B. miyamotoi PCR Negative (Negative); Babesia divergens/MO-1 Negative (Negative); Ehrlichia muris eauclairensis Negative (Negative)
== END 2024-11-07 12:26 | disposition home or self-care (01) ==
PROVIDERS: Emergency Provider Physician Assistant; PCP Family Medicine
DX: M79.10 Myalgia, unspecified site (principal); I71.20 Thoracic aortic aneurysm, without rupture, unspecified; E04.1 Nontoxic single thyroid nodule; I45.19 Other right bundle-branch block; I10 Essential (primary) hypertension; F17.210 Nicotine dependence, cigarettes, uncomplicated; Z86.73 Personal history of transient ischemic attack (TIA), and cerebral infarction without residual deficits
CPT/HCPCS: 36415; 74177; 80053; 82550; 83690; 87798; 93005; 96365; 96375; 99285; 71260; 84443; 85025; 86618; 93010; J0131; J2270; J3490; J7512

== ENCOUNTER 2024-11-25 08:53 | Outpatient (CLI) | payer MEDICARE, SELFPAY ==
[2024-11-25 09:06] LABS: Ferritin 112 ng/mL (26-388)
== END 2024-11-25 08:54 | disposition home or self-care (01) ==
LOC: LBO 08:54
PROVIDERS: PCP Family Medicine; Visit Provider Family Medicine
DX: E83.119 Hemochromatosis, unspecified (principal)
CPT/HCPCS: 36415; 99195; 82728

== ENCOUNTER 2024-11-25 10:16 | Outpatient (RCR) | payer MEDICARE, SELFPAY | END 2024-12-19 23:59 | disposition home or self-care (01) | LOC: INF 10:16 | PROVIDERS: PCP Family Medicine; Visit Provider Family Medicine | DX: E83.119 Hemochromatosis, unspecified (principal) | CPT/HCPCS: 99195 ==

== ENCOUNTER 2024-12-23 11:27 | Outpatient (CLI) | payer MEDICARE, SELFPAY ==
[2024-12-23 09:12] LABS: Ferritin 88 ng/mL (26-388)
== END 2024-12-23 11:28 | disposition home or self-care (01) ==
LOC: LBO 11:27
PROVIDERS: PCP Family Medicine; Visit Provider Family Medicine
DX: E83.119 Hemochromatosis, unspecified (principal)
CPT/HCPCS: 36415; 82728

== ENCOUNTER 2025-01-20 04:02 | Outpatient (CLI) | payer MEDICARE, SELFPAY ==
[2025-01-20 09:12] LABS: Ferritin 76 ng/mL (26-388)
== END 2025-01-20 04:03 | disposition home or self-care (01) ==
LOC: LBO 04:02
PROVIDERS: PCP Family Medicine; Visit Provider Family Medicine
DX: E83.119 Hemochromatosis, unspecified (principal)
CPT/HCPCS: 36415; 82728

== ENCOUNTER 2025-02-24 01:37 | Outpatient (CLI) | payer MEDICARE, SELFPAY ==
[2025-02-24 09:18] LABS: Ferritin 77 ng/mL (26-388)
== END 2025-02-24 01:38 | disposition home or self-care (01) ==
PROVIDERS: PCP Family Medicine; Visit Provider Family Medicine
DX: E83.119 Hemochromatosis, unspecified (principal)
CPT/HCPCS: 36415; 82728

== ENCOUNTER 2025-03-24 01:43 | Outpatient (CLI) | payer MEDICARE, SELFPAY ==
[2025-03-24 09:15] LABS: Ferritin 128 ng/mL (11-307)
== END 2025-03-24 01:44 | disposition home or self-care (01) ==
PROVIDERS: PCP Family Medicine; Visit Provider Family Medicine
DX: E83.119 Hemochromatosis, unspecified (principal)
CPT/HCPCS: 36415; 82728